=== PATIENT | female | born 1945 | race Caucasian/White ===

== ENCOUNTER 2018-10-25 15:26 | Emergency (ER) | payer OTHER ==
[2018-10-25 15:39] VITALS: BMI 30.4
--- NOTE | 2018-10-25 15:43 | PDOC ---
Rapid Medical Evaluation Chief Complaint: Injury Time Seen by Provider: 10/25/18 15:37 Medical Evaluation: Allergies Allergy/AdvReac Type Severity Reaction Status Date / Time No Known Allergies Allergy Verified 11/17/16 11:01 10/25/18 15:37 I have performed a brief in-person evaluation of this patient. The patient presents with a chief complaint of: fall hitting right knee. Patient is poor historian and thinks she hit her head during fall. Patient does not recall what happened before fall Pertinent physical exam findings: moderate tenderness with mild swelling to anterior right knee. moderate tenderness to right great toe. no evidence of head trauma I have ordered the following: x-ray of RT knee and great toe. head CT w/o contrast The patient will proceed to the ED for further evaluation. Discharge Disposition - Diagnosis Right anterior knee pain, Pain of right great toe Fall Qualifiers: Encounter type: initial encounter Qualified Code(s): W19.XXXA - Unspecified fall, initial encounter - Discharge Dispostion Condition at time of disposition: Stable - Referrals - Patient Instructions - Post Discharge Activity
--- NOTE | 2018-10-25 18:26 | PDOC ---
History of Present Illness - General Chief Complaint: Injury Stated Complaint: RT. SIDE PAIN/ FALL Time Seen by Provider: 10/25/18 15:37 History Source: Patient Exam Limitations: No Limitations - History of Present Illness Initial Comments: 72 yo F with a hx of Von Willebrand Disease, HTN, and HLD presents to the emergency department s/p fall that occurred last night. Per the patient, she was walking in her kitchen and slipped on water that was on the floor. She denies antecedent symptoms prior to the fall. She states that she was having right knee pain after hitting the wood floor. In addition, she had 1st right toe pain after the fall. She is unsure if she had head trauma, but denies LOC. With family at bedside, they state their mother is at baseline confused but lives independently. Denies the following: fever, chills, SOB, nausea, vomiting , chest pain, dysuria, hematuria, diarrhea, hematochezia, and melena. Allergies: NKDA Shx: Left knee replacement Social: Denies tobacco, alcohol, and substance Past History - Past Medical History Allergies/Adverse Reactions: Allergies Allergy/AdvReac Type Severity Reaction Status Date / Time No Known Allergies Allergy Verified 10/25/18 15:39 Home Medications: Ambulatory Orders Biotin 5,000 mcg PO DAILY 11/17/16 Cholecalciferol (Vitamin D3) [Vitamin D3] 2,000 unit PO DAILY 11/17/16 Docosahexanoic Acid/Epa [Fish Oil Concentrate Softgel] 1 each PO DAILY 11/17/16 Fexofenadine HCl [Robina Allergy] 180 mg PO DAILY 11/17/16 Multivitamins [Tab-A-Vit -] 1 tab PO DAILY 11/17/16 Rosuvastatin Calcium [Crestor] 10 mg PO HS 11/17/16 Valsartan [Diovan] 80 mg PO DAILY 11/17/16 metFORMIN HCL [Metformin HCl] 500 mg PO BID 11/17/16 Anemia: No (Hx of Von Willebrand Disease) Asthma: No Cancer: No Cardiac Disorders: No CVA: No COPD: No CHF: No Dementia: No Diabetes: No (???) GI Disorders: No Disorders: No HTN: Yes Hypercholesterolemia: Yes Liver Disease: No Seizures: No Thyroid Disease: No - Surgical History Abdominal Surgery: No Appendectomy: No Cardiac Surgery: No Cholecystectomy: No Lung Surgery: No Neurologic Surgery: No Orthopedic Surgery: Yes (Left knee arthroscopy x2) - Suicide/Smoking/Psychosocial Hx Smoking History: Former smoker Have you smoked in the past 12 months: No Information on smoking cessation initiated: No Hx Alcohol Use: No Drug/Substance Use Hx: No Substance Use Type: None Hx Substance Use Treatment: No Review of Systems - Review of Systems Able to Perform ROS?: Yes Is the patient limited Polish proficient: No Constitutional: No: Chills, Diaphoresis, Fever, Weakness HEENTM: No: Recent change in vision, Ear Pain, Nose Pain, Throat Pain, Mouth Pain Respiratory: No: Cough, Shortness of Breath, SOB with Exertion, Hemoptysis Cardiac (ROS): No: Chest Pain, Irregular Heart Rate, Lightheadedness, Palpitations, Syncope, Chest Tightness ABD/GI: No: Constipated, Diarrhea, Nausea, Rectal Bleeding, Vomiting, Tarry Stools : No: Burning, Dysuria, Hematuria, Incontinence Musculoskeletal: Yes: Joint Pain (left toe ). No: Back Pain, Neck Pain Integumentary: No: Bruising, Erythema, Rash Neurological: No: Headache, Numbness, Tingling, Tremors Psychiatric: No: Change in Appetite Endocrine: No: Unexplained Weight Gain Hematologic/Lymphatic: No: Anemia *Physical Exam - Vital Signs Last Vital Signs Temp Pulse Resp BP Pulse Ox 97.5 F L 97 H 18 144/82 97 10/25/18 15:30 10/25/18 15:30 10/25/18 15:30 10/25/18 15:30 10/25/18 15:30 - Physical Exam General Appearance: Yes: Nourished, Appropriately Dressed. No: Apparent Distress, Intoxicated HEENT: positive: EOMI, MADELAINE, Normal Voice, Symmetrical, Pharynx Normal, Hearing Grossly Normal. negative: Pale Conjunctivae, Scleral Icterus (R), Scleral Icterus (L), Muffled/Hoarse voice, Pharyngeal Erythema, Tonsillar Exudate, Tonsillar Erythema, Nasal Congestion, Rhinorrhea, Excessive drooling Neck: positive: Trachea midline, Supple. negative: Tender, Lymphadenopathy (R) , Lymphadenopathy (L), Tender lateral, Tender midline Respiratory/Chest: positive: Lungs Clear, Normal Breath Sounds. negative: Chest Tender, Respiratory Distress, Accessory Muscle Use, Crackles, Rales, Rhonchi, Stridor, Wheezing Cardiovascular: positive: Regular Rhythm, Regular Rate, S1, S2. negative: Systolic Murmur Gastrointestinal/Abdominal: positive: Normal Bowel Sounds, Flat, Soft. negative : Tender, Distended, Guarding, Rebound Lymphatic: negative: Adenopathy Musculoskeletal: positive: Normal Inspection. negative: CVA Tenderness, Vertebral Tenderness Extremity: positive: Normal Capillary Refill, Tender (base of the 1st metatarsal at the MTP left side with swelling. ). negative: Normal Inspection Integumentary: positive: Normal Color, Dry, Warm Neurologic: positive: apartment house manager II-XII NML intact, Alert, Normal Mood/Affect, Normal Response, Motor Strength 5/5. negative: EOM Palsy, Facial Droop, Numbness Medical Decision Making - Medical Decision Making 72 yo F with a hx of Von Willebrand Disease, HTN, and HLD presents to the emergency department s/p fall that occurred last night. Initial vitals: Initial Vital Signs Temp Pulse Resp BP Pulse Ox 97.5 F L 97 H 18 144/82 97 10/25/18 15:30 10/25/18 15:30 10/25/18 15:30 10/25/18 15:30 10/25/18 15:30 Work up: ddx: mechanical fall. rule out fracture and dislocation. will get head ct to rule out bleed toe xray: non displaced fracture at the base of the distal phalanx of the 1st digit left foot. will give lavelle tape and hard sole boot with follow up with ortho in 1 week. patient was able to ambulate on their own volition and understand the need for follow up. Dispo: Discharge *DC/Admit/Observation/Transfer Diagnosis at time of Disposition: Right anterior knee pain, Pain of right great toe Fall Qualifiers: Encounter type: initial encounter Qualified Code(s): W19.XXXA - Unspecified fall, initial encounter - Discharge Dispostion Disposition: HOME Condition at time of disposition: Stable Decision to Admit order: No - Referrals Referrals: Erick Rivas MD [Primary Care Provider] - Luis Barth DO [Staff Physician] - - Patient Instructions Printed Discharge Instructions: DI for Toe Fracture, How to Prevent Falls Additional Instructions: please use the boot when walking. please keep the big toe taped to the second toe. please see the orthopedic doctor within 1 week after discharge. please return if you have worsening symptoms or new concerning symptoms such as discoloration of the toe, loss of sensation and motor, and bleeding. thank you. - Post Discharge Activity
[2018-10-25 19:02] VITALS: BP 173/84; PULSE 88; TEMP 98.7
--- NOTE | 2018-10-25 19:05 | PDOC ---
Documentation entered by Amaris Avilez SCRIBE, acting as scribe for Trupti Kaplan MD. Trupti Kaplan MD: This documentation has been prepared by the Fatmata peace Adrianna, SCRIBE, under my direction and personally reviewed by me in its entirety. I confirm that the documentation accurately reflects all work, treatment, procedures, and medical decision making performed by me. Attending Attestation - Resident Resident Name: ReshmaRadu - [facility] HPI: The patient is a 72 year old female, with a significant PMH of Von Willebrand Disease, hypertension, and hypercholesterolemia, who presents to the emergency department today s/p fall last night. Patient complains of right knee pain and swelling secondary to hitting her knee from the fall. She endorses right great toe pain, swelling, and bruising. Patient believes she may have hit her head during the fall, but is unsure. Patient cannot recall anything that happened prior to the fall secondary to her confusion (confusion is present at baseline) . The patient denies chest pain, shortness of breath, headache and dizziness. Denies fever, chills, nausea, vomit, diarrhea and constipation. Denies dysuria, frequency, urgency and hematuria. Allergies: NKA Past surgical history: Left knee arthroscopy x2 Social history: Former smoker PCP: Dr. Erick Rivas 10/25/18 18:44 - Physicial Exam PE: GENERAL: Awake, alert, and fully oriented, in no acute distress HEAD: No signs of trauma EYES: PERRLA, EOMI, sclera anicteric, conjunctiva clear ENT: Auricles normal inspection, hearing grossly normal, nares patent, oropharynx clear without exudates. Moist mucosa NECK: Normal ROM, supple, no lymphadenopathy, JVD, or masses LUNGS: Breath sounds equal, clear to auscultation bilaterally. No wheezes, and no crackles HEART: Regular rate and rhythm, normal S1 and S2, no murmurs, rubs or gallops ABDOMEN: Soft, nontender, normoactive bowel sounds. No guarding, no rebound. No masses EXTREMITIES: +Great toe ecchymotic and mildly tender to palpation. Intact capillary refill. Intact sensation. Normal range of motion, no edema. No clubbing or cyanosis. No cords, no erythema. NEUROLOGICAL: Cranial nerves II through XII grossly intact. Normal speech, normal gait SKIN: Warm, Dry, normal turgor, no rashes or lesions noted. 10/25/18 18:44 - Medical Decision Making EXAM#: TYPE/EXAM: RESULT: [id number] RAD/KNEE 3 POS-RIGHT Pain in the right knee. Status post fall Impression: Unremarkable examination. Please refer to prior MRI of the right knee report dated Reported By: Santiago Santos MD 10/25/18 17:05 EXAM#: TYPE/EXAM: RESULT: [id number] RAD/TOE(S) RIGHT Impression: Nondisplaced fracture at the base of the first distal phalanx, laterally. There is also a questionable lucent line in distal shaft of the first proximal phalanx involving its articular surface. Cannot rule out a fracture. Orthopedics consult is suggested. Reported By: Santiago Santos MD 10/25/18 17:05 EXAM#: TYPE/EXAM: RESULT: [id number] CT/HEAD CT WITHOUT CONTRAST Status post fall. Hitting head. Rule out intracranial bleed. Impression: Moderate atrophy. No gross evidence of a focal intracranial lesion or hemorrhage is seen. Reported By: Santiago Santos MD 10/25/18 18:16 10/25/18 18:37 10/25/18 19:03 PResents with great toe pain after mechanical fall. + fx on xray. Will place hard shoe and lavelle tape and discharge home.
== END 2018-10-25 19:25 | disposition home or self-care (01) ==
LOC: JER 15:26
PROC: 2W3UXYZ Immobilization of Right Toe using Other Device (ICD-10-PCS; principal; 2018-10-25)
DX: S92.424A Nondisplaced fracture of distal phalanx of right great toe, initial encounter for closed fracture (principal); W19.XXXA Unspecified fall, initial encounter; Y93.89 Activity, other specified; Y92.038 Other place in apartment as the place of occurrence of the external cause; Y99.8 Other external cause status; I10 Essential (primary) hypertension; E78.00 Pure hypercholesterolemia, unspecified; Z86.2 Personal history of diseases of the blood and blood-forming organs and certain disorders involving the immune mechanism
CPT/HCPCS: 70450-TC; 73562-TC-RT-FY; 73660-TC-FY; 99283-25

== ENCOUNTER 2019-01-11 12:37 | Emergency (ER) | payer OTHER ==
[2019-01-11 12:42] VITALS: BMI 23.1
[2019-01-11] MEDS ORDERED: SODIUM CHLORIDE 0.9% 500 ML INFUS.BAG IV ONE (14:26)
[2019-01-11 14:45] LABS: BASO % 0.6 % (0-2.0); EOS % 0.9 % (0-4.5); HEMATOCRIT 37.3 % (32.4-45.2); LYMPH % 41.7 % (8-40); MCH 25.8 pg (25.7-33.7); MCHC 32.3 g/dl (32.0-36.0); MEAN PLT VOLUME 9.7 fl (7.5-11.1); MONO % 7.4 % (3.8-10.2); NEUT % 49.4 % (42.8-82.8); PLATELET COUNT 178 K/MM3 (134-434); RBC 4.66 M/mm3 (3.60-5.2); RDW 14.4 % (11.6-15.6); WHITE BLOOD COUNT 4.9 K/mm3 (4.0-10.0)
--- NOTE | 2019-01-11 14:57 | PDOC ---
Documentation entered by Tania Chance SCRIBE, acting as scribe for Trupti Kaplan MD. rTupti Kaplan MD: This documentation has been prepared by the Meron peace Mackenzie, SCRIBE, under my direction and personally reviewed by me in its entirety. I confirm that the documentation accurately reflects all work , treatment, procedures, and medical decision making performed by me. History of Present Illness - General Chief Complaint: Blood Sugar Problem Stated Complaint: HYPERGLYCEMIA Time Seen by Provider: 01/11/19 13:56 History Source: Patient, Family (Son) Exam Limitations: Clinical Condition (Confused) - History of Present Illness Initial Comments: The patient is a 73 year old female, with a significant PMH of NIDDM, HTN, and Von Willebrand disease who presents to the emergency department with a blood sugar level of 513 sent here after a routine visit with her PCP. Patient states she has been noncompliant with her medications for about 3 months. The patient denies chest pain, shortness of breath, headache and dizziness. Denies fever, chills, nausea, vomiting, diarrhea and constipation. Denies dysuria, frequency, urgency and hematuria. Allergies: NKA PCP: Dr. Jez Esquivel 01/11/19 14:37 Past History - Past Medical History Allergies/Adverse Reactions: Allergies Allergy/AdvReac Type Severity Reaction Status Date / Time No Known Allergies Allergy Verified 01/11/19 12:42 Home Medications: Ambulatory Orders Biotin 5,000 mcg PO DAILY 11/17/16 Cholecalciferol (Vitamin D3) [Vitamin D3] 2,000 unit PO DAILY 11/17/16 Docosahexanoic Acid/Epa [Fish Oil Concentrate Softgel] 1 each PO DAILY 11/17/16 Fexofenadine HCl [Robina Allergy] 180 mg PO DAILY 11/17/16 Multivitamins [Tab-A-Vit -] 1 tab PO DAILY 11/17/16 Rosuvastatin Calcium [Crestor] 10 mg PO HS 11/17/16 Valsartan [Diovan] 80 mg PO DAILY 11/17/16 metFORMIN HCL [Metformin HCl] 500 mg PO BID 11/17/16 Anemia: No (Hx of Von Willebrand Disease) Asthma: No Cancer: No Cardiac Disorders: No CVA: No COPD: No CHF: No Dementia: No Diabetes: No (???) GI Disorders: No Disorders: No HTN: Yes Hypercholesterolemia: Yes Liver Disease: No Seizures: No Thyroid Disease: No - Surgical History Abdominal Surgery: No Appendectomy: No Cardiac Surgery: No Cholecystectomy: No Lung Surgery: No Neurologic Surgery: No Orthopedic Surgery: Yes (Left knee arthroscopy x2) - Suicide/Smoking/Psychosocial Hx Smoking History: Never smoked Have you smoked in the past 12 months: No Hx Alcohol Use: No Drug/Substance Use Hx: No Substance Use Type: None Hx Substance Use Treatment: No Review of Systems - Review of Systems Able to Perform ROS?: Yes Comments:: GENERAL/CONSTITUTIONAL: No fever or chills. No weakness. HEAD, EYES, EARS, NOSE AND THROAT: No change in vision. No ear pain or discharge. No sore throat. CARDIOVASCULAR: No chest pain or shortness of breath. RESPIRATORY: No cough, wheezing, or hemoptysis. GASTROINTESTINAL: No nausea, vomiting, diarrhea or constipation. GENITOURINARY: No dysuria, frequency, or change in urination. MUSCULOSKELETAL: (+)Boot on left foot, from fall taken 5 weeks ago. No joint or muscle swelling or pain. No neck or back pain. SKIN: No rash NEUROLOGIC: No headache, vertigo, loss of consciousness, or change in strength/ sensation. ENDOCRINE: No increased thirst. No abnormal weight change. HEMATOLOGIC/LYMPHATIC: No anemia, easy bleeding, or history of blood clots. ALLERGIC/IMMUNOLOGIC: No hives or skin allergy. 01/11/19 14:39 *Physical Exam - Vital Signs Last Vital Signs Temp Pulse Resp BP Pulse Ox 98.2 F 99 H 16 166/81 97 01/11/19 12:39 01/11/19 12:39 01/11/19 12:39 01/11/19 12:39 01/11/19 12:39 - Physical Exam Comments: GENERAL: Awake, alert, and fully oriented, in no acute distress HEAD: No signs of trauma EYES: PERRLA, EOMI, sclera anicteric, conjunctiva clear ENT: Auricles normal inspection, hearing grossly normal, nares patent, oropharynx clear without exudates. Moist mucosa NECK: Normal ROM, supple, no lymphadenopathy, JVD, or masses LUNGS: Breath sounds equal, clear to auscultation bilaterally. No wheezes, and no crackles HEART: Regular rate and rhythm, normal S1 and S2, no murmurs, rubs or gallops ABDOMEN: Soft, nontender, normoactive bowel sounds. No guarding, no rebound. No masses EXTREMITIES: Normal range of motion, no edema. No clubbing or cyanosis. No cords, erythema, or tenderness NEUROLOGICAL: Cranial nerves II through XII grossly intact. Normal speech, normal gait SKIN: Warm, Dry, normal turgor, no rashes or lesions noted. 01/11/19 14:39 ED Treatment Course - LABORATORY CBC & Chemistry Diagram: 01/11/19 14:30 01/11/19 14:30 - ADDITIONAL ORDERS Additional order review: 01/11/19 14:30 RBC 4.66 MCV 80.0 MCHC 32.3 RDW 14.4 MPV 9.7 Neutrophils % 49.4 Lymphocytes % 41.7 H Monocytes % 7.4 Eosinophils % 0.9 Basophils % 0.6 - Medications Given in the ED: ED Medications Discontinued Medications Generic Name Dose Route Start Last Admin Trade Name Catarinoq PRN Reason Stop Dose Admin Sodium Chloride 1,000 ml 01/11/19 14:26 01/11/19 14:30 Normal Saline - IV 01/11/19 14:27 1,000 ml ONCE ONE Administration Medical Decision Making - Medical Decision Making 01/11/19 14:55 Pt presents to the ED after sent in for asymptomatic hyperglycemia. Reports non compliance with her diabetes medications and diet for several months. Will check labs and give IV hydration and reasses. will likely discharge home if no DKA or HHNK is present when glucose is controlled. *DC/Admit/Observation/Transfer Diagnosis at time of Disposition: Hyperglycemia - Discharge Dispostion Disposition: HOME Condition at time of disposition: Good Decision to Admit order: No - Referrals Referrals: Jez Esquivel MD [Primary Care Provider] - - Patient Instructions Printed Discharge Instructions: DI for Hyperglycemia -- Adult Additional Instructions: you came to the ED because your blood sugar was too high. You should return to the ED for new or worsening symptoms such as passing out, nausea and vomiting , chest pain or shortness of breath. Make sure that you call Dr. Connors on Monday for a follow up appointment. Dr. Connors will be able to help you get a home health aide or other help at home. You must take your diabetes medication every day--other thakkar, you will get sick. - Post Discharge Activity
[2019-01-11 14:59] LABS: ACETONE SERUM NEGATIVE (NEGATIVE)
[2019-01-11 15:14] LABS: ALBUMIN 3.3 g/dl (3.4-5.0); ALK PHOS 102 U/L (45-117); ANION GAP 7 MMOL/L (8-16); BILIRUBIN,TOTAL 0.2 mg/dL (0.2-1); BLOOD UREA NITROGEN 7.2 mg/dL (7-18); CALCIUM 9.8 mg/dL (8.5-10.1); CHLORIDE 96 mmol/L (98-107); CO2 28 mmol/L (21-32); CREATININE 0.9 mg/dL (0.55-1.3); POTASSIUM 4.1 mmol/L (3.5-5.1); SGOT/AST 16 U/L (15-37); SGPT/ALT 22 U/L (13-61); SODIUM 132 mmol/L (136-145); TOT PROT 9.5 g/dl (6.4-8.2)
[2019-01-11 15:17] LABS: GLUCOSE,RANDOM 361 mg/dL (74-106)
[2019-01-11] MEDS ORDERED: SODIUM CHLORIDE 1,000 ML IV STA (15:59)
[2019-01-11 17:56] VITALS: BP 183/99; PULSE 84; TEMP 97.5
--- NOTE | 2019-01-12 15:06 | PDOC ---
*Physical Exam - Vital Signs Last Vital Signs Temp Pulse Resp BP Pulse Ox 97.5 F L 84 20 183/99 H 97 01/11/19 17:55 01/11/19 17:55 01/11/19 17:55 01/11/19 17:55 01/11/19 17:55 ED Treatment Course - LABORATORY CBC & Chemistry Diagram: 01/11/19 14:30 01/11/19 14:30 - ADDITIONAL ORDERS Additional order review: 01/11/19 01/11/19 01/11/19 17:15 15:46 14:56 RBC MCV MCHC RDW MPV Neutrophils % Lymphocytes % Monocytes % Eosinophils % Basophils % POC Glucometer 248 310 334 01/11/19 14:30 RBC 4.66 MCV 80.0 MCHC 32.3 RDW 14.4 MPV 9.7 Neutrophils % 49.4 Lymphocytes % 41.7 H Monocytes % 7.4 Eosinophils % 0.9 Basophils % 0.6 POC Glucometer - Medications Given in the ED: ED Medications Discontinued Medications Generic Name Dose Route Start Last Admin Trade Name Phong PRN Reason Stop Dose Admin Sodium Chloride 1,000 mls @ 1,000 mls/hr 01/11/19 15:59 01/11/19 16:02 Normal Saline - IV 01/11/19 16:58 1,000 mls/hr ASDIR STA Administration Sodium Chloride 1,000 ml 01/11/19 14:26 01/11/19 14:30 Normal Saline - IV 01/11/19 14:27 1,000 ml ONCE ONE Administration Medical Decision Making - Medical Decision Making 01/12/19 15:05 Patient calls me and reports that she needed a refill of her metformin. I had wrote a prescription of metformin 500 mg BID. Pt states she will pick it up today. *DC/Admit/Observation/Transfer Diagnosis at time of Disposition: Hyperglycemia - Discharge Dispostion Disposition: HOME Condition at time of disposition: Good - Prescriptions Prescriptions: Metformin HCl [Glucophage] 500 mg PO BID #30 tablet metFORMIN HCL [Metformin HCl] 500 mg PO BID #60 tablet Valsartan [Diovan] 80 mg PO DAILY #14 tablet - Referrals Referrals: Jez Esquivel MD [Primary Care Provider] - - Patient Instructions Printed Discharge Instructions: DI for Hyperglycemia -- Adult Additional Instructions: you came to the ED because your blood sugar was too high. You should return to the ED for new or worsening symptoms such as passing out, nausea and vomiting , chest pain or shortness of breath. Make sure that you call Dr. Connors on Monday for a follow up appointment. Dr. Connors will be able to help you get a home health aide or other help at home. You must take your diabetes medication every day--other thakkar, you will get sick. - Post Discharge Activity
== END 2019-01-11 18:06 | disposition home or self-care (01) ==
LOC: JER 12:37
PROC: 3E0337Z Introduction of Electrolytic and Water Balance Substance into Peripheral Vein, Percutaneous Approach (ICD-10-PCS; principal; 2019-01-11)
DX: E11.65 Type 2 diabetes mellitus with hyperglycemia (principal); I10 Essential (primary) hypertension; E78.00 Pure hypercholesterolemia, unspecified
CPT/HCPCS: 36415; 80053; 82009; 82962; 85025; 99283-25; J7030

== ENCOUNTER 2019-05-09 01:10 | Inpatient (IN) | payer OTHER ==
[2019-05-09] MEDS ORDERED: ACETAMINOPHEN 325 MG TABLET (FP) PO ONE (01:45)
[2019-05-09] MEDS ORDERED: LIDOCAINE 5% TOPICAL PATCH TP ONE (01:45)
--- NOTE | 2019-05-09 01:47 | PDOC ---
History of Present Illness - General Stated Complaint: BACK PAIN Time Seen by Provider: 05/09/19 01:20 History Source: Patient Exam Limitations: No Limitations - History of Present Illness Initial Comments: Pt is a 73 yo F, with PMH of von Willebrand disease, NIDDM (known to be non- compliant with metformin, frequent hyperglycemia), HTN, and HLD, who is presenting via EMS from home after "my leg gave out today". Pt states she was walking in the home, when her "right leg gave out, but I caught myself on the furniture. I was not able to get up off the floor". EMS states they knocked the door down, to reach the pt, and had to go down 1 flight of stairs to the pts entryway. Pt had been on the floor throughout the day, and needed assistance to be transferred to the ambulance. Pt has had multiple falls that are similar over the past few months, with her lower back cramping and then R leg giving way. Pt denies any urinary incontinence, fever, or weakness except for the moment prior to the fall. Pt denies any fevers/chills, headache, vision changes , syncope, chest pain, palpitations, SOB, nausea/vomiting, abdominal pain, urinary symptoms, diarrhea/constipation, or leg swelling. Allergies: NKDA PCP: Dr. Jez Esquivel Social: Pt denies any cigarette, alcohol, or drug use. Pt denies any recent travel or sick contacts. Surgical: no relevant history. Family: no relevant history. 05/09/19 03:54 05/09/19 04:13 Past History - Travel Traveled outside of the country in the last 30 days: No Close contact w/someone who was outside of country & ill: No - Past Medical History Allergies/Adverse Reactions: Allergies Allergy/AdvReac Type Severity Reaction Status Date / Time No Known Allergies Allergy Verified 01/11/19 12:42 Home Medications: Ambulatory Orders Biotin 5,000 mcg PO DAILY 11/17/16 Cholecalciferol (Vitamin D3) [Vitamin D3] 2,000 unit PO DAILY 11/17/16 Docosahexanoic Acid/Epa [Fish Oil Concentrate Softgel] 1 each PO DAILY 11/17/16 Fexofenadine HCl [Robina Allergy] 180 mg PO DAILY 11/17/16 Multivitamins [Tab-A-Vit -] 1 tab PO DAILY 11/17/16 Rosuvastatin Calcium [Crestor] 10 mg PO HS 11/17/16 metFORMIN HCL [Metformin HCl] 500 mg PO BID 11/17/16 Metformin HCl [Glucophage] 500 mg PO BID #30 tablet 01/11/19 Valsartan [Diovan] 80 mg PO DAILY #14 tablet 01/11/19 metFORMIN HCL [Metformin HCl] 500 mg PO BID #60 tablet 01/12/19 Anemia: No (Hx of Von Willebrand Disease) Asthma: No Cancer: No Cardiac Disorders: No CVA: No COPD: No CHF: No Dementia: No Diabetes: Yes (???) GI Disorders: No Disorders: No HTN: Yes Hypercholesterolemia: Yes Liver Disease: No Seizures: No Thyroid Disease: No - Surgical History Abdominal Surgery: No Appendectomy: No Cardiac Surgery: No Cholecystectomy: No Lung Surgery: No Neurologic Surgery: No Orthopedic Surgery: Yes (Left knee arthroscopy x2) - Immunization History Immunization Up to Date: Yes - Psycho Social/Smoking Cessation Hx Smoking History: Never smoked Have you smoked in the past 12 months: No Information on smoking cessation initiated: No Hx Alcohol Use: No Drug/Substance Use Hx: No Substance Use Type: None Hx Substance Use Treatment: No Trauma Specific PMHX - Complaint Specific PMHX Arthritis: Yes (L knee arthroscopy) Back Injury: No Neck Injury: No Hx Sacro Iliac Joint Dysfunction: No Review of Systems - Review of Systems Able to Perform ROS?: Yes Is the patient limited [place]an proficient: No Constitutional: Yes: Weakness, Weight Stable. No: Chills, Diaphoresis, Fever, Loss of Appetite, Malaise HEENTM: No: Recent change in vision, Nose Congestion, Throat Pain, Throat Swelling, Difficulty Swallowing Respiratory: No: Cough, Orthopnea, Shortness of Breath Cardiac (ROS): No: Chest Pain, Edema, Irregular Heart Rate, Lightheadedness, Palpitations, Syncope, Chest Tightness ABD/GI: No: Constipated, Diarrhea, Nausea, Poor Appetite, Poor Fluid Intake, Vomiting, Abdominal cramping : No: Burning, Dysuria, Frequency, Hematuria, Incontinence, Urgency Musculoskeletal: Yes: See HPI, Back Pain, Muscle Weakness. No: Joint Pain, Joint Swelling, Neck Pain Integumentary: No: Bruising, Rash Neurological: Yes: Unsteady Gait. No: Headache, Numbness, Paresthesia, Pre- Existing Deficit, Seizure, Weakness ("legs giving out", no focal weakness), Ataxia, Dizziness Psychiatric: No: Sleep Pattern Change, Change in Appetite Endocrine: No: Increased Urine, Change in Weight Hematologic/Lymphatic: No: Anemia, Blood Clots, Easy Bleeding, Easy Bruising All Other Systems: Reviewed and Negative *Physical Exam - Vital Signs Last Vital Signs Temp Pulse Resp BP Pulse Ox 98.3 F 96 H 18 164/80 98 05/09/19 01:38 05/09/19 01:38 05/09/19 01:38 05/09/19 01:38 05/09/19 01:38 - Physical Exam Comments: Vitals stable, pt afebrile. Pt in NAD while lying on the stretcher; discomfort induced with sitting up. Normal body habitus. Pt unable to bear weight due to pain and "feeling unstable on legs". Pt alert and oriented x3. associate account director generally intact, muscular strength and sensation intact. Reflexes intact b/ l LE. No midline spinal tenderness, step-offs, or crepitus. +Paraspinal lower/lumbar TTP. Lower back pain induced with straight-leg raise. Head normocephalic, atraumatic. Eyes PERRLA, EOMI. Oropharynx without erythema or exudates, no LAD b/l. No nasal congestion. Hearing intact. Clear heart sounds, S1/S2, no JVD, b/l pedal edema, or heart murmur. Clear lung sounds, no respiratory distress, wheezes, crackles, or accessory muscle use. No abdominal or CVA tenderness to palpation, no rebound, no guarding. Abdomen soft, non-distended, and with normoactive bowel sounds. Skin without jaundice or rash. 05/09/19 05:15 ED Treatment Course - LABORATORY CBC & Chemistry Diagram: 05/09/19 02:05 05/09/19 02:05 - RADIOLOGY Radiology Studies Ordered: Category Date Time Status HEAD CT WITHOUT CONTRAST [CT] Stat CT Scan 05/09/19 01:43 Ordered Medical Decision Making - Medical Decision Making Pt was seen at bedside, also will be seen by attending Dr. Molina. Pt presenting with complaints of lower back pain and multiple falls with "legs giving out" over the last few months. Concerning for malignancy vs fractures vs electrolyte imbalances. Pt has no signs of cauda equina, spinal abscess, or compression at this time (no fever, incontinence of urine or stool). Provided tylenol and lidocaine patch for improvement of back discomfort. Will continue to reassess pt and monitor for symptomatic improvement. ECG: NSR, intervals WNL. No TWIs or significant ST segment changes. No significant changes from prior ECG. CBC: stable anemia CMP: WNL except BGM at 400s -- providing pts dose of metformin Trop <.02 CT head and C-spine with no acute pathology. CT abd/pelvis: Diffusely sclerotic appearance of the bones is nonspecific but cannot exclude diffuse marrow infiltrative process including metastasis. Alternative process including renal osteodystrophy could be considered. CT lumbar spine: There is cortical irregularity of the superior endplate of L3 concerning for age-indeterminate fracture. Recommend correlation with physical exam findings. There is approximately 25% height loss of the superior endplate. No significant retropulsion. No spinal canal stenosis. Heterogeneous appearance of the bones; cannot exclude diffuse marrow infiltrative process. Partial visualization of infrarenal abdominal aortic aneurysm which measures at least 3.9 cm in diameter; recommend further evaluation with nonemergent CT of the abdomen and pelvis. 8 mm left adrenal nodule. Mild right hydronephrosis. Stable fracture, no retropulsion or compression. Pt has no incontinence or b/l leg weakness. Reflexes intact. Not concerning for cauda equina or spinal abscess at this time. More concerning for chronic dystrophy vs malignancy. Paged Dr. Recio for admission. 05/09/19 04:[address] Recio's service. Pt requires inpatient treatment for PT, evaluation of spinal fracture vs metastasis/osteodystrophy. Pt lives in a home with stairs, and would be unable to ambulate safely in her place of living. 05/09/19 04:42 05/09/19 04:46 05/09/19 05:38 Discharge - Discharge Information Problems reviewed: Yes Clinical Impression/Diagnosis: Assistance needed for ambulation and movement Fall Qualifiers: Encounter type: initial encounter Qualified Code(s): W19.XXXA - Unspecified fall, initial encounter L3 vertebral fracture Qualifiers: Encounter type: initial encounter Fracture type: closed Fracture morphology: other fracture Qualified Code(s): S32.038A - Other fracture of third lumbar vertebra, initial encounter for closed fracture Condition: Stable - Admission Yes - Follow up/Referral Referrals: Jez Esquivel MD [Primary Care Provider] - - Patient Discharge Instructions - Post Discharge Activity
[2019-05-09] MEDS ORDERED: LIDOCAINE 5% TOPICAL PATCH ONE (01:50)
[2019-05-09] MEDS ORDERED: ACETAMINOPHEN 325 MG TABLET (FP) ONE (01:50)
--- NOTE | 2019-05-09 01:55 | PDOC ---
Attending Attestation - Resident Resident Name: Odalis Barreraana - ED Attending Attestation I have performed the following: I have examined & evaluated the patient, The case was reviewed & discussed with the resident, I agree w/resident's findings & plan - HPI HPI: 05/09/19 06:29 see resident hpi - Physicial Exam PE: 05/09/19 06:29 agree with resident exam - Medical Decision Making 05/09/19 06:29 73-year-old female status post multiple falls with leg weakness CT scan shows an L3 fracture with no retropulsed fragments Plan for admission to medical service for further evaluation, PT evaluation
[2019-05-09 02:19] LABS: BASO % 0.3 % (0-2.0); EOS % 0.5 % (0-4.5); HEMATOCRIT 31.4 % (32.4-45.2); HEMOGLOBIN 10.3 GM/dL (10.7-15.3); LYMPH % 16.9 % (8-40); MCH 27.1 pg (25.7-33.7); MCHC 32.9 g/dl (32.0-36.0); MEAN CELL VOLUME 82.4 fl (80-96); MEAN PLT VOLUME 10.2 fl (7.5-11.1); MONO % 7.1 % (3.8-10.2); NEUT % 75.2 % (42.8-82.8); PLATELET COUNT 217 K/MM3 (134-434); RBC 3.82 M/mm3 (3.60-5.2); RDW 15.6 % (11.6-15.6); WHITE BLOOD COUNT 5.8 K/mm3 (4.0-10.0)
[2019-05-09] MEDS ORDERED: metFORMIN HCL 500 MG TABLET (FP) PO ONE (02:21)
[2019-05-09 02:33] LABS: INR 1.03 (0.83-1.09); PROTHROMBIN TIME (PATIENT) 12.1 SEC (9.7-13.0)
[2019-05-09 02:43] LABS: ALBUMIN 3.2 g/dl (3.4-5.0); ALK PHOS 100 U/L (45-117); ANION GAP 5 MMOL/L (8-16); BILIRUBIN,TOTAL 0.2 mg/dL (0.2-1); BLOOD UREA NITROGEN 11.8 mg/dL (7-18); CALCIUM 10.1 mg/dL (8.5-10.1); CHLORIDE 101 mmol/L (98-107); CO2 27 mmol/L (21-32); CREATININE 0.9 mg/dL (0.55-1.3); POTASSIUM 4.5 mmol/L (3.5-5.1); SGOT/AST 14 U/L (15-37); SGPT/ALT 23 U/L (13-61); SODIUM 133 mmol/L (136-145); TOT PROT 9.9 g/dl (6.4-8.2)
[2019-05-09 02:44] LABS: GLUCOSE,RANDOM 421 mg/dL (74-106)
[2019-05-09] MEDS ORDERED: metFORMIN HCL 500 MG TABLET (FP) ONE (03:03)
--- NOTE | 2019-05-09 12:37 | EKG ---
Test Reason : Blood Pressure : / mmHG Vent. Rate : 103 BPM Atrial Rate : 103 BPM P-R Int : 160 ms QRS Dur : 068 ms QT Int : 344 ms P-R-T Axes : 061 005 049 degrees QTc Int : 450 ms SINUS TACHYCARDIA OTHERWISE NORMAL ECG NO PREVIOUS ECGS AVAILABLE Confirmed by ANNE CAMPA MD ([id number]) on 05/09/2019 12:37:33 PM Referred By: Confirmed By:ANNE CAMPA MD
[2019-05-09] MEDS ORDERED: ONDANSETRON 4 MG/2 ML VIAL IVPUSH PRN (17:35)
[2019-05-09] MEDS: metFORMIN HCL 500 MG TABLET (FP) PO SCH (17:47)
[2019-05-09] MEDS: INSULIN SLIDING SCALE (NOVOLOG) 1 VIAL SQ SCH ×2 (17:48→22:54)
[2019-05-09] MEDS ORDERED: KETOROLAC TROMETHAMINE 30 MG/1 ML VIAL IM SCH (18:00)
[2019-05-09 18:47] VITALS: BMI 27.9
--- NOTE | 2019-05-09 21:01 | HP ---
Admitting History and Physical - Admission History of Present Illness: Pt is a 73 y/o female with PMH of von Willebrand disease, NIDDM (known to be non -compliant with metformin, frequent hyperglycemia), HTN, and HLD, who is presenting via EMS from home after "my leg gave out today". Pt is a poor historian. Pt states she was walking in the home, when her "right leg gave out, but I caught myself on the furniture. I was not able to get up off the floor". EMS states they knocked the door down, to reach the pt, and had to go down 1 flight of stairs to the pts entryway. Pt had been on the floor throughout the day, and needed assistance to be transferred to the ambulance. Pt has had multiple falls that are similar over the past few months, with her lower back cramping and then R leg giving way. Pt also complains of vertigo wc she states began in hospital w/ multiple episodes of vomiting. Pt had ct scan head in ER wc did not show any acute pathology. - Past Medical History Cardiovascular: Yes: HTN, Hyperlipdemia ...: No Heme/Onc: Yes: Other (Von Willebrands dz) Endocrine: Yes: Diabetes Mellitus - Smoking History Smoking history: Never smoked Have you smoked in the past 12 months: No - Alcohol/Substance Use Hx Alcohol Use: No Home Medications - Allergies Allergies/Adverse Reactions: Allergies Allergy/AdvReac Type Severity Reaction Status Date / Time No Known Allergies Allergy Verified 01/11/19 12:42 - Home Medications Home Medications: Ambulatory Orders Biotin 5,000 mcg PO DAILY 11/17/16 Cholecalciferol (Vitamin D3) [Vitamin D3] 2,000 unit PO DAILY 11/17/16 Docosahexanoic Acid/Epa [Fish Oil Concentrate Softgel] 1 each PO DAILY 11/17/16 Fexofenadine HCl [Robina Allergy] 180 mg PO DAILY 11/17/16 Multivitamins [Tab-A-Vit -] 1 tab PO DAILY 11/17/16 Rosuvastatin Calcium [Crestor] 10 mg PO HS 11/17/16 Metformin HCl [Glucophage] 500 mg PO BID #30 tablet 01/11/19 Valsartan [Diovan] 80 mg PO DAILY #14 tablet 01/11/19 Family Medical History Family History: Unremarkable Review of Systems - Review of Systems Constitutional: reports: Weakness Eyes: reports: No Symptoms HENT: reports: No Symptoms Neck: reports: No Symptoms Cardiovascular: reports: No Symptoms Respiratory: reports: No Symptoms Gastrointestinal: reports: Nausea, Vomiting Genitourinary: reports: No Symptoms Physical Examination Vital Signs: Vital Signs Temperature 99.5 F 05/09/19 15:50 Pulse Rate 96 H 05/09/19 15:50 Respiratory Rate 20 05/09/19 15:50 Blood Pressure 128/82 05/09/19 15:50 O2 Sat by Pulse Oximetry (%) 94 L 05/09/19 11:30 Constitutional: Yes: No Distress Eyes: Yes: WNL HENT: Yes: WNL Neck: Yes: WNL, Supple Cardiovascular: Yes: WNL, Regular Rate and Rhythm Respiratory: Yes: WNL, Regular, CTA Bilaterally Gastrointestinal: Yes: WNL, Normal Bowel Sounds, Soft Musculoskeletal: Yes: WNL Extremities: Yes: WNL Edema: No Neurological: Yes: WNL, Alert, Oriented ...Motor Strength: WNL Labs: CBC, BMP 05/09/19 02:05 05/09/19 02:05 Problem List - Problems (1) Vertebral fracture Assessment/Plan: Ortho consult Compression of L3 Tramadol prn for pain Code(s): CIN4177 - (2) Weakness Assessment/Plan: Multifactorial Neuro consult PT eval Code(s): R53.1 - WEAKNESS (3) Falls Code(s): W19.XXXA - UNSPECIFIED FALL, INITIAL ENCOUNTER (4) Vertigo Assessment/Plan: Meclizine prn Neuro consult Check echo/carotid doppler Code(s): R42 - DIZZINESS AND GIDDINESS (5) HTN (hypertension) Assessment/Plan: BP stable Cont diovan Code(s): I10 - ESSENTIAL (PRIMARY) HYPERTENSION (6) HLD (hyperlipidemia) Assessment/Plan: Cont crestor Code(s): E78.5 - HYPERLIPIDEMIA, UNSPECIFIED (7) Diabetes Assessment/Plan: Cont metformin Cont sliding scale w/ coverage Code(s): E11.9 - TYPE 2 DIABETES MELLITUS WITHOUT COMPLICATIONS
[2019-05-09] MEDS ORDERED: MECLIZINE HCL 12.5 MG TABLET PO PRN (21:21)
[2019-05-09] MEDS ORDERED: LIDOCAINE PATCH REMOVAL MC SCH (22:00)
[2019-05-09] MEDS: ROSUVASTATIN CA 10 MG TABLET (FP) PO SCH (22:54)
[2019-05-09] MEDS: HEPARIN NA (PORCINE) 5,000 UNITS/ML 1ML VIAL SQ SCH (22:54)
[2019-05-10] MEDS: INSULIN SLIDING SCALE (NOVOLOG) 1 VIAL SQ SCH ×4 (06:23→22:10)
[2019-05-10 08:58] LABS: BASO % 0.4 % (0-2.0); EOS % 0.5 % (0-4.5); HEMATOCRIT 30.6 % (32.4-45.2); HEMOGLOBIN 10.1 GM/dL (10.7-15.3); LYMPH % 29.5 % (8-40); MCH 26.8 pg (25.7-33.7); MCHC 32.9 g/dl (32.0-36.0); MEAN CELL VOLUME 81.5 fl (80-96); MEAN PLT VOLUME 10.7 fl (7.5-11.1); MONO % 10.7 % (3.8-10.2); NEUT % 58.9 % (42.8-82.8); PLATELET COUNT 217 K/MM3 (134-434); RBC 3.75 M/mm3 (3.60-5.2); RDW 15.7 % (11.6-15.6)
[2019-05-10] MEDS: metFORMIN HCL 500 MG TABLET (FP) PO SCH ×2 (09:24→17:51)
[2019-05-10] MEDS: MULTIVITAMINS (DAILY MVI) TABLET (FP) PO SCH (09:24)
[2019-05-10] MEDS: VALSARTAN 80 MG TABLET (UD) PO SCH (09:24)
[2019-05-10] MEDS: HEPARIN NA (PORCINE) 5,000 UNITS/ML 1ML VIAL SQ SCH ×2 (09:24→22:10)
[2019-05-10 09:38] LABS: BILIRUBIN,TOTAL 0.3 mg/dL (0.2-1); CALCIUM 10.5 mg/dL (8.5-10.1); CREATININE 1.1 mg/dL (0.55-1.3); POTASSIUM 4.6 mmol/L (3.5-5.1); TOT PROT 9.4 g/dl (6.4-8.2)
[2019-05-10 09:39] LABS: WHITE BLOOD COUNT 5.6 K/mm3 (4.0-10.0)
--- NOTE | 2019-05-10 10:39 | CONSULT ---
Consult - text type - Consultation Consultation Note: NEUROLOGY CONSULT GREATLY APPRECIATED: This 73 yo RH single woman lives alone. Ambulates with cane outside since fall 4 years ago. Has two flights of stairs in the house. PMHX: Von Willebrand's Disease, HTN, HLD, DM x "many years" On: Vit D, Fish oil, rosuvastatin, metformin, valsartan. Progressive gait decline due to non-radiating "sharp pains" in middle of back. Ambulation now limited to few feet. Improves with rest and sitting. Admitted after "legs gave way" and lowered to the floor. Denies hitting head or LOC. Has had previous episodes similar to this , but able to "get up." Granddaughter was at home and called EMS to transfer her to hospital. Head CT (reviewed): Moderate, diffuse, atrophy with ex vacuo ventricular dilation. Calcification of intracranial vessels. CT of C spine: Mild DJD C5/C6,C6/C7 without cord involvement. MRI of LS spine (C-): Normal alignment. Discs well-hydrated. Mod. spondylytic changes and posterior facet hypertrophy. No central canal stenosis. B/L foraminal stenosis at L3/L4 without impingement. Mild L3 vertebral collapse (age indeterminate) WBC= 5.8K MCV= 81.5; TSH= 0.58 CK= 37 IU/L KVNG: BP 120-180/70-90 supine. Cor reg. No bruit. Neck supple. Neg SLR. Neg Brendan's. Neg Shama's. No evidence of trauma. NEURO: Awake, alert, responsive. Mild OMS present. CNII-CNXII: Normal. Motor: No drift or tremor. Strength normal. Reflexes normal in arms, areflexic in legs. Toes downgoing. Coordination: No FTN dystaxia. Sensation: Preserved vibration in toes. Romberg +/- Gait: Normal, can walk on heels and toes without difficulty. Impression: Mild OMS LS spondylosis without significant stenosis to explain claudication. Mild DM polyneuropathy may be contributing. R/O vascular claudication. Suggest: Orthostatic BP's Check ESR, CRP, B12, RPR, Fe++, TIBC, Ferritin Mobilize pt OOB to chair for meals PT eval for gait safety with walker director of services eval for home safety check Thank you very much, Tobias Scanlon MD
--- NOTE | 2019-05-10 12:05 | ECHO ---
Name: CIELO LISA Exam:Adult Echocardiogram Study Date: 05/10/2019 11:20 AM Age: 73 yrs Height: 64 in Weight: 163 lb BSA: 1.8 m2 MMode/2D Measurements & Calculations IVSd: 0.88 cm Ao root diam: 2.8 cm LVIDd: 4.1 cm LA dimension: 3.2 cm LVIDs: 2.5 cm LVPWd: 1.0 cm LVPWs: 1.2 cm EDV(Teich): 75.3 ml ESV(Teich): 22.0 ml LVOT diam: 1.8 cm RV S Sid: 12.0 cm/sec Doppler Measurements & Calculations MV E max sid: 68.9 cm/sec Ao V2 max: 141.8 cm/sec MV A max sid: 74.7 cm/sec Ao max P.1 mmHg MV E/A: 0.92 MV dec time: 0.09 sec SADIE(V,D): 1.9 cm2 LV V1 max P.3 mmHg PA V2 max: 101.1 cm/sec LV V1 max: 103.8 cm/sec PA max P.1 mmHg Med Peak E' Sid: 6.7 cm/sec Med E/e': 10.2 Lat Peak E' Sid: 12.1 cm/sec Lat E/e': 5.7 Left Ventricle Left ventricular systolic function is normal. Ejection Fraction = 50-55%. The transmitral spectral Do ppler flow pattern is normal for age. Right Ventricle The right ventricle is normal in size and function. Atria The left atrium is mildly dilated. Right atrial size is normal. Mitral Valve The mitral valve is grossly normal. There is no mitral valve stenosis. There is trace to mild mitral regurgitation. Tricuspid Valve The tricuspid valve is normal in structure and function. There is mild tricuspid regurgitation. Right ventricular systolic pressure is normal. Aortic Valve There is moderate aortic sclerosis.;. No hemodynamically significant valvular aortic stenosis. No aor tic regurgitation is present. Pulmonic Valve The pulmonic valve is not well seen, but is grossly normal. There is no pulmonic valvular stenosis. Great Vessels The aortic root is normal size. Pericardium/Pleura Small pericardial effusion (<1cm). There are no echocardiographic indications of cardiac tamponade. Interpretation Summary Left ventricular systolic function is normal. Ejection Fraction = 50-55%. The right ventricle is normal in size and function. The left atrium is mildly dilated. There is trace to mild mitral regurgitation. There is mild tricuspid regurgitation. Right ventricular systolic pressure is normal. There is moderate aortic sclerosis.; Small pericardial effusion (<1cm) There are no echocardiographic indications of cardiac tamponade. MD Rothman *Silva 05/10/2019 12:04 PM
--- NOTE | 2019-05-10 12:08 | CON.CARD ---
Consult Consult Specialty:: Cardiology - History of Present Illness History of Present Illness: Pt is a 73 y/o female with PMH of von Willebrand disease, NIDDM (known to be non -compliant with metformin, frequent hyperglycemia), HTN, and HLD, who is presenting via EMS from home after "my leg gave out today". Pt is a poor historian. Pt states she was walking in the home, when her "right leg gave out, but I caught myself on the furniture. I was not able to get up off the floor". EMS states they knocked the door down, to reach the pt, and had to go down 1 flight of stairs to the pts entryway. Pt had been on the floor throughout the day, and needed assistance to be transferred to the ambulance. Pt has had multiple falls that are similar over the past few months, with her lower back cramping and then R leg giving way. Pt also complains of vertigo wc she states began in hospital w/ multiple episodes of vomiting. Pt had ct scan head in ER wc did not show any acute pathology. - History Source History Provided By: Patient, Medical Record - Past Medical History Cardio/Vascular: Yes: HTN, Hyperlipdemia ...: No Endocrine: Yes: Diabetes Mellitus - Alcohol/Substance Use Hx Alcohol Use: No - Smoking History Smoking history: Never smoked Have you smoked in the past 12 months: No Home Medications - Allergies Allergies/Adverse Reactions: Allergies Allergy/AdvReac Type Severity Reaction Status Date / Time No Known Allergies Allergy Verified 01/11/19 12:42 - Home Medications Home Medications: Ambulatory Orders Biotin 5,000 mcg PO DAILY 11/17/16 Cholecalciferol (Vitamin D3) [Vitamin D3] 2,000 unit PO DAILY 11/17/16 Docosahexanoic Acid/Epa [Fish Oil Concentrate Softgel] 1 each PO DAILY 11/17/16 Fexofenadine HCl [Robina Allergy] 180 mg PO DAILY 11/17/16 Multivitamins [Tab-A-Vit -] 1 tab PO DAILY 11/17/16 Rosuvastatin Calcium [Crestor] 10 mg PO HS 11/17/16 Metformin HCl [Glucophage] 500 mg PO BID #30 tablet 01/11/19 Valsartan [Diovan] 80 mg PO DAILY #14 tablet 01/11/19 Review of Systems - Review of Systems Constitutional: reports: No Symptoms Eyes: reports: No Symptoms HENT: reports: No Symptoms Neck: reports: No Symptoms Cardiovascular: reports: No Symptoms Gastrointestinal: reports: No Symptoms Genitourinary: reports: No Symptoms Breasts: reports: No Symptoms Reported Musculoskeletal: reports: No Symptoms Integumentary: reports: No Symptoms Neurological: reports: Other (back pain) Endocrine: reports: No Symptoms Hematology/Lymphatic: reports: No Symptoms Psychiatric: reports: No Symptoms Vital Signs: Vital Signs Temperature 98.5 F 05/10/19 06:18 Pulse Rate 90 05/10/19 06:18 Respiratory Rate 20 05/10/19 06:18 Blood Pressure 121/69 05/10/19 06:18 O2 Sat by Pulse Oximetry (%) 99 05/09/19 21:00 Constitutional: Yes: Well Nourished, No Distress, Calm Eyes: Yes: WNL, Conjunctiva Clear, EOM Intact HENT: Yes: WNL, Atraumatic, Normocephalic Neck: Yes: WNL, Supple, Trachea Midline Respiratory: Yes: WNL, Regular, CTA Bilaterally Gastrointestinal: Yes: WNL, Normal Bowel Sounds Renal/: Yes: WNL Cardiovascular: Yes: WNL, Regular Rate and Rhythm Musculoskeletal: Yes: WNL Extremities: Yes: WNL Integumentary: Yes: WNL ...Motor Strength: WNL Psychiatric: Yes: WNL, Alert, Oriented - Other Data Labs, Other Data: CBC, BMP 05/10/19 07:52 05/10/19 06:52 INR, PTT INR 1.03 (0.83-1.09) 05/09/19 02:05 Troponin, BNP 05/10/19 00:15 Troponin I 0.04 Troponin, BNP 05/10/19 00:15 Troponin I 0.04 Imaging - Results Chest X-ray: Image Reviewed (no i/e) EKG: Image Reviewed (s tachy o/w wnl) Problem List - Problems (1) Assistance needed for ambulation and movement Code(s): [id number] - (2) Diabetes Code(s): E11.9 - TYPE 2 DIABETES MELLITUS WITHOUT COMPLICATIONS (3) Fall Code(s): W19.XXXA - UNSPECIFIED FALL, INITIAL ENCOUNTER Qualifiers: Encounter type: initial encounter Qualified Code(s): W19.XXXA - Unspecified fall, initial encounter (4) Falls Code(s): W19.XXXA - UNSPECIFIED FALL, INITIAL ENCOUNTER (5) HLD (hyperlipidemia) Code(s): E78.5 - HYPERLIPIDEMIA, UNSPECIFIED (6) HTN (hypertension) Code(s): I10 - ESSENTIAL (PRIMARY) HYPERTENSION (7) L3 vertebral fracture Code(s): S32.039A - UNSP FRACTURE OF THIRD LUMBAR VERTEBRA, INIT FOR CLOS FX Qualifiers: Encounter type: initial encounter Fracture type: closed Fracture morphology: other fracture Qualified Code(s): S32.038A - Other fracture of third lumbar vertebra, initial encounter for closed fracture (8) Peripheral neuropathy Code(s): G62.9 - POLYNEUROPATHY, UNSPECIFIED (9) Vertebral fracture Code(s): AIV7298 - (10) Vertigo Code(s): R42 - DIZZINESS AND GIDDINESS (11) Weakness Code(s): R53.1 - WEAKNESS (12) Hyperglycemia Code(s): R73.9 - HYPERGLYCEMIA, UNSPECIFIED (13) Pain of right great toe Code(s): M79.674 - PAIN IN RIGHT TOE(S) (14) Right anterior knee pain Code(s): M25.561 - PAIN IN RIGHT KNEE Assessment/Plan von Willebrand disease, NIDDM (known to be non-compliant with metformin, frequent hyperglycemia), HTN, and HLD presenting with Compression of L3 fx s tach on ekg, echo nl ef Plan cardiac thakkar stable pain control dvt plx cardiac thakkar stable
--- NOTE | 2019-05-10 13:02 | EKG ---
Test Reason : Blood Pressure : / mmHG Vent. Rate : 102 BPM Atrial Rate : 102 BPM P-R Int : 146 ms QRS Dur : 078 ms QT Int : 340 ms P-R-T Axes : 058 -01 040 degrees QTc Int : 443 ms SINUS TACHYCARDIA WHEN COMPARED WITH ECG OF 09-MAY-2019 04:16, NO SIGNIFICANT CHANGE WAS FOUND Confirmed by HAKEEM SILVA MD ([id number]) on 05/10/2019 1:01:48 PM Referred By: Confirmed By:HKAEEM SILVA MD
[2019-05-10 14:32] LABS: PLATELET ESTIMATE NORMAL
[2019-05-10] MEDS ORDERED: INSULIN (NOVOLOG) ASPART 100 UNITS/ML 10ML VIAL ONE (17:50)
[2019-05-10] MEDS ORDERED: KETOROLAC TROMETHAMINE 30 MG/1 ML VIAL IM SCH (18:00)
--- NOTE | 2019-05-10 21:11 | PN ---
Progress Note, Physician - Current Medication List Current Medications: Active Medications Heparin Sodium (Porcine) (Heparin -) 5,000 unit SQ BID [facility] Last Admin: 05/10/19 09:24 Dose: 5,000 unit Insulin Aspart (Novolog Vial Sliding Scale -) 1 vial SQ ACHS [facility]; Protocol Last Admin: 05/10/19 17:51 Dose: Not Given Meclizine HCl (Antivert -) 25 mg PO Q8H PRN PRN Reason: VERTIGO Metformin HCl (Glucophage -) 500 mg PO BIDWM [facility] Last Admin: 05/10/19 17:51 Dose: 500 mg Multivitamins/Minerals/Vitamin C (Tab-A-Vit -) 1 tab PO DAILY [facility] Last Admin: 05/10/19 09:24 Dose: 1 tab Ondansetron HCl (Zofran Injection) 4 mg IVPUSH Q8H PRN PRN Reason: NAUSEA Last Admin: 05/09/19 18:01 Dose: 4 mg Rosuvastatin Calcium (Crestor -) 10 mg PO HS [facility] Last Admin: 05/09/19 22:54 Dose: 10 mg Tramadol HCl (Ultram -) 50 mg PO Q8H PRN PRN Reason: PAIN LEVEL 4 - 10 Valsartan (Diovan -) 80 mg PO DAILY [facility] Last Admin: 05/10/19 09:24 Dose: 80 mg - Objective Vital Signs: Vital Signs Temperature 98.0 F 05/10/19 18:51 Pulse Rate 100 H 05/10/19 18:51 Respiratory Rate 20 05/10/19 18:51 Blood Pressure 137/69 05/10/19 18:51 O2 Sat by Pulse Oximetry (%) 99 05/10/19 09:00 Labs: CBC, BMP 05/10/19 07:52 05/10/19 06:52 INR, PTT INR 1.03 (0.83-1.09) 05/09/19 02:05 Problem List - Problems (1) Vertebral fracture Code(s): [id number] - (2) Weakness Code(s): R53.1 - WEAKNESS (3) Falls Code(s): W19.XXXA - UNSPECIFIED FALL, INITIAL ENCOUNTER (4) Vertigo Code(s): R42 - DIZZINESS AND GIDDINESS (5) HTN (hypertension) Code(s): I10 - ESSENTIAL (PRIMARY) HYPERTENSION (6) HLD (hyperlipidemia) Code(s): E78.5 - HYPERLIPIDEMIA, UNSPECIFIED (7) Diabetes Code(s): E11.9 - TYPE 2 DIABETES MELLITUS WITHOUT COMPLICATIONS
[2019-05-10] MEDS: ROSUVASTATIN CA 10 MG TABLET (FP) PO SCH (22:10)
[2019-05-11] MEDS: INSULIN SLIDING SCALE (NOVOLOG) 1 VIAL SQ SCH ×4 (06:52→21:11)
[2019-05-11] MEDS: metFORMIN HCL 500 MG TABLET (FP) PO SCH ×2 (06:52→17:01)
[2019-05-11] MEDS: HEPARIN NA (PORCINE) 5,000 UNITS/ML 1ML VIAL SQ SCH ×2 (09:30→21:11)
[2019-05-11] MEDS: VALSARTAN 80 MG TABLET (UD) PO SCH (09:30)
[2019-05-11] MEDS: MULTIVITAMINS (DAILY MVI) TABLET (FP) PO SCH (09:31)
[2019-05-11] MEDS ORDERED: MAG HYDROX/AL HYDROX/SIMETH -MYLANTA- ORAL SUSPENSION PO ONE (13:30)
[2019-05-11] MEDS ORDERED: MAG HYDROX/AL HYDROX/SIMETH 30 ML UNIT-DOSE CUP PO ONE (13:45)
[2019-05-11] MEDS: traMADol HCL 50 MG TABLET PO PRN (17:01)
[2019-05-11] MEDS ORDERED: PT OWN MED DRAWER 7, Y5N ONE (20:59)
[2019-05-11] MEDS: ROSUVASTATIN CA 10 MG TABLET (FP) PO SCH (21:11)
--- NOTE | 2019-05-11 23:49 | PN ---
Progress Note, Physician - Current Medication List Current Medications: Active Medications Heparin Sodium (Porcine) (Heparin -) 5,000 unit SQ BID [facility] Last Admin: 05/11/19 21:11 Dose: 5,000 unit Insulin Aspart (Novolog Vial Sliding Scale -) 1 vial SQ ACHS [facility]; Protocol Last Admin: 05/11/19 21:11 Dose: 2 units Meclizine HCl (Antivert -) 25 mg PO Q8H PRN PRN Reason: VERTIGO Metformin HCl (Glucophage -) 1,000 mg PO BID@0700,1630 [facility] Last Admin: 05/11/19 17:01 Dose: 1,000 mg Multivitamins/Minerals/Vitamin C (Tab-A-Vit -) 1 tab PO DAILY [facility] Last Admin: 05/11/19 09:31 Dose: 1 tab Ondansetron HCl (Zofran Injection) 4 mg IVPUSH Q8H PRN PRN Reason: NAUSEA Last Admin: 05/09/19 18:01 Dose: 4 mg Rosuvastatin Calcium (Crestor -) 10 mg PO HS [facility] Last Admin: 05/11/19 21:11 Dose: 10 mg Tramadol HCl (Ultram -) 50 mg PO Q8H PRN PRN Reason: PAIN LEVEL 4 - 10 Last Admin: 05/11/19 17:01 Dose: 50 mg Valsartan (Diovan -) 80 mg PO DAILY [facility] Last Admin: 05/11/19 09:30 Dose: 80 mg - Objective Vital Signs: Vital Signs Temperature 98.5 F 05/11/19 19:38 Pulse Rate 99 H 05/11/19 19:38 Respiratory Rate 22 H 05/11/19 21:00 Blood Pressure 137/82 05/11/19 19:38 O2 Sat by Pulse Oximetry (%) 96 05/10/19 21:00 Labs: CBC, BMP 05/10/19 07:52 05/10/19 06:52 INR, PTT INR 1.03 (0.83-1.09) 05/09/19 02:05 Problem List - Problems (1) Vertebral fracture Code(s): [id number] - (2) Weakness Code(s): R53.1 - WEAKNESS (3) Falls Code(s): W19.XXXA - UNSPECIFIED FALL, INITIAL ENCOUNTER (4) Vertigo Code(s): R42 - DIZZINESS AND GIDDINESS (5) HTN (hypertension) Code(s): I10 - ESSENTIAL (PRIMARY) HYPERTENSION (6) HLD (hyperlipidemia) Code(s): E78.5 - HYPERLIPIDEMIA, UNSPECIFIED (7) Diabetes Code(s): E11.9 - TYPE 2 DIABETES MELLITUS WITHOUT COMPLICATIONS
[2019-05-12] MEDS: traMADol HCL 50 MG TABLET PO PRN (06:05)
[2019-05-12] MEDS: metFORMIN HCL 500 MG TABLET (FP) PO SCH ×2 (06:05→17:37)
[2019-05-12] MEDS: INSULIN SLIDING SCALE (NOVOLOG) 1 VIAL SQ SCH ×4 (06:06→21:23)
[2019-05-12] MEDS: VALSARTAN 80 MG TABLET (UD) PO SCH (10:50)
[2019-05-12] MEDS: MULTIVITAMINS (DAILY MVI) TABLET (FP) PO SCH (10:50)
[2019-05-12] MEDS: HEPARIN NA (PORCINE) 5,000 UNITS/ML 1ML VIAL SQ SCH ×2 (10:50→21:23)
[2019-05-12] MEDS ORDERED: INSULIN (NOVOLOG) ASPART 100 UNITS/ML 10ML VIAL ONE (21:04)
[2019-05-12] MEDS: ROSUVASTATIN CA 10 MG TABLET (FP) PO SCH (21:23)
--- NOTE | 2019-05-12 22:31 | PN ---
Progress Note, Physician History of Present Illness: Pt complaining of lower back pain - Current Medication List Current Medications: Active Medications Heparin Sodium (Porcine) (Heparin -) 5,000 unit SQ BID [facility] Last Admin: 05/12/19 21:23 Dose: 5,000 unit Insulin Aspart (Novolog Vial Sliding Scale -) 1 vial SQ ACHS [facility]; Protocol Last Admin: 05/12/19 21:23 Dose: 2 units Meclizine HCl (Antivert -) 25 mg PO Q8H PRN PRN Reason: VERTIGO Metformin HCl (Glucophage -) 1,000 mg PO BID@0700,1630 [facility] Last Admin: 05/12/19 17:37 Dose: 1,000 mg Multivitamins/Minerals/Vitamin C (Tab-A-Vit -) 1 tab PO DAILY [facility] Last Admin: 05/12/19 10:50 Dose: 1 tab Ondansetron HCl (Zofran Injection) 4 mg IVPUSH Q8H PRN PRN Reason: NAUSEA Last Admin: 05/09/19 18:01 Dose: 4 mg Rosuvastatin Calcium (Crestor -) 10 mg PO HS [facility] Last Admin: 05/12/19 21:23 Dose: 10 mg Valsartan (Diovan -) 80 mg PO DAILY [facility] Last Admin: 05/12/19 10:50 Dose: 80 mg - Objective Vital Signs: Vital Signs Temperature 98.1 F 05/12/19 20:06 Pulse Rate 101 H 05/12/19 20:06 Respiratory Rate 22 H 05/12/19 20:06 Blood Pressure 137/80 05/12/19 20:06 O2 Sat by Pulse Oximetry (%) 96 05/10/19 21:00 Neck: Yes: WNL, Supple Cardiovascular: Yes: WNL, Regular Rate and Rhythm Respiratory: Yes: WNL, Regular, CTA Bilaterally Gastrointestinal: Yes: WNL, Normal Bowel Sounds, Soft, Abdomen, Obese Extremities: Yes: WNL Edema: No Labs: CBC, BMP 05/10/19 07:52 05/10/19 06:52 INR, PTT INR 1.03 (0.83-1.09) 05/09/19 02:05 Problem List - Problems (1) Vertebral fracture Assessment/Plan: Compression of L3 PT eval Spoke to pt at length about STR however pt is refusing DC planning for am Tramadol prn for pain Code(s): [id number] - (2) Weakness Assessment/Plan: Multifactorial Neuro consult PT eval Code(s): R53.1 - WEAKNESS (3) Falls Code(s): W19.XXXA - UNSPECIFIED FALL, INITIAL ENCOUNTER (4) Vertigo Assessment/Plan: Meclizine prn Neuro consult Check echo/carotid doppler Code(s): R42 - DIZZINESS AND GIDDINESS (5) HTN (hypertension) Assessment/Plan: BP stable Cont diovan Code(s): I10 - ESSENTIAL (PRIMARY) HYPERTENSION (6) HLD (hyperlipidemia) Assessment/Plan: Cont crestor Code(s): E78.5 - HYPERLIPIDEMIA, UNSPECIFIED (7) Diabetes Assessment/Plan: Cont metformin Cont sliding scale w/ coverage Code(s): E11.9 - TYPE 2 DIABETES MELLITUS WITHOUT COMPLICATIONS
[2019-05-13] MEDS: CELECOXIB 200 MG CAPSULE PO SCH ×3 (00:31→23:32)
[2019-05-13] MEDS: metFORMIN HCL 500 MG TABLET (FP) PO SCH ×2 (06:34→17:26)
[2019-05-13] MEDS: GABAPENTIN 100 MG CAPSULE (FP) PO SCH ×3 (06:34→23:32)
[2019-05-13] MEDS: INSULIN SLIDING SCALE (NOVOLOG) 1 VIAL SQ SCH ×4 (06:34→23:31)
[2019-05-13] MEDS ORDERED: PT OWN MED DRAWER 7, Y5N ONE (09:12)
[2019-05-13] MEDS: MULTIVITAMINS (DAILY MVI) TABLET (FP) PO SCH (09:15)
[2019-05-13] MEDS: VALSARTAN 80 MG TABLET (UD) PO SCH (09:15)
[2019-05-13] MEDS: HEPARIN NA (PORCINE) 5,000 UNITS/ML 1ML VIAL SQ SCH ×2 (09:15→23:32)
--- NOTE | 2019-05-13 09:26 | CON.ORTH ---
Consult Reason for Consultation:: LBP - Past Medical History Cardio/Vascular: Yes: HTN, Hyperlipdemia ...: No Endocrine: Yes: Diabetes Mellitus - Alcohol/Substance Use Hx Alcohol Use: No - Smoking History Smoking history: Never smoked Have you smoked in the past 12 months: No Home Medications - Allergies Allergies/Adverse Reactions: Allergies Allergy/AdvReac Type Severity Reaction Status Date / Time No Known Allergies Allergy Verified 01/11/19 12:42 - Home Medications Home Medications: Ambulatory Orders Biotin 5,000 mcg PO DAILY 11/17/16 Cholecalciferol (Vitamin D3) [Vitamin D3] 2,000 unit PO DAILY 11/17/16 Docosahexanoic Acid/Epa [Fish Oil Concentrate Softgel] 1 each PO DAILY 11/17/16 Fexofenadine HCl [Robina Allergy] 180 mg PO DAILY 11/17/16 Multivitamins [Tab-A-Vit -] 1 tab PO DAILY 11/17/16 Rosuvastatin Calcium [Crestor] 10 mg PO HS 11/17/16 Metformin HCl [Glucophage] 500 mg PO BID #30 tablet 01/11/19 Valsartan [Diovan] 80 mg PO DAILY #14 tablet 01/11/19 Physical Exam for Ortho Vital Signs: Vital Signs Temperature 98.8 F 05/13/19 06:02 Pulse Rate 90 05/13/19 06:02 Respiratory Rate 20 05/13/19 06:02 Blood Pressure 150/78 05/13/19 06:02 O2 Sat by Pulse Oximetry (%) 96 05/10/19 21:00 Labs: CBC, BMP 05/10/19 07:52 05/10/19 06:52 INR, PTT INR 1.03 (0.83-1.09) 05/09/19 02:05 - Lower Extremity Pelvis: Yes: Exam WNL Hip: Yes: Exam WNL Other Findings/Remarks: + ttp paraspinals, decr rom, - SLR, no radiculopathy,2+ relexes b/l, nvi Imaging - Results Cat Scan: Report Reviewed, Image Reviewed MRI: Report Reviewed, Image Reviewed Assessment/Plan 3 yo F, with PMH of von Willebrand disease, NIDDM (known to be non-compliant with metformin, frequent hyperglycemia), HTN, and HLD, who is presenting via EMS from home after "my leg gave out today". Pt states she was walking in the home, when her "right leg gave out, but I caught myself on the furniture. I was not able to get up off the floor". EMS states they knocked the door down, to reach the pt, and had to go down 1 flight of stairs to the pts entryway. Pt had been on the floor throughout the day, and needed assistance to be transferred to the ambulance. Pt has had multiple falls that are similar over the past few months, with her lower back cramping and then R leg giving way. Pt denies any urinary incontinence, fever, or weakness except for the moment prior to the fall. Pt denies any fevers/chills, headache, vision changes, syncope, chest pain , palpitations, SOB, nausea/vomiting, abdominal pain, urinary symptoms, diarrhea /constipation, or leg swelling. a/p L3 compression fx- acute/subacute, foraminal stenosis, spondylosis PT eval, wbat lumbar corset may be helpful pain control d/c planning for snf d/w Dr. Field
--- NOTE | 2019-05-13 10:50 | PN ---
Progress Note, Physician History of Present Illness: Pt is a 73 y/o female with PMH of von Willebrand disease, NIDDM (known to be non -compliant with metformin, frequent hyperglycemia), HTN, and HLD, who is presenting via EMS from home after "my leg gave out today". Pt is a poor historian. Pt states she was walking in the home, when her "right leg gave out, but I caught myself on the furniture. I was not able to get up off the floor". EMS states they knocked the door down, to reach the pt, and had to go down 1 flight of stairs to the pts entryway. Pt had been on the floor throughout the day, and needed assistance to be transferred to the ambulance. Pt has had multiple falls that are similar over the past few months, with her lower back cramping and then R leg giving way. Pt also complains of vertigo wc she states began in hospital w/ multiple episodes of vomiting. Pt had ct scan head in ER wc did not show any acute pathology. - Current Medication List Current Medications: Active Medications Celecoxib (Celebrex -) 200 mg PO BID [facility] Last Admin: 05/13/19 09:15 Dose: 200 mg Gabapentin (Neurontin -) 100 mg PO TID [facility] Last Admin: 05/13/19 06:34 Dose: 100 mg Heparin Sodium (Porcine) (Heparin -) 5,000 unit SQ BID [facility] Last Admin: 05/13/19 09:15 Dose: 5,000 unit Insulin Aspart (Novolog Vial Sliding Scale -) 1 vial SQ [facility]; Protocol Last Admin: 05/13/19 06:34 Dose: 2 units Meclizine HCl (Antivert -) 25 mg PO Q8H PRN PRN Reason: VERTIGO Metformin HCl (Glucophage -) 1,000 mg PO BID@0700,1630 [facility] Last Admin: 05/13/19 06:34 Dose: 1,000 mg Multivitamins/Minerals/Vitamin C (Tab-A-Vit -) 1 tab PO DAILY [facility] Last Admin: 05/13/19 09:15 Dose: 1 tab Ondansetron HCl (Zofran Injection) 4 mg IVPUSH Q8H PRN PRN Reason: NAUSEA Last Admin: 05/09/19 18:01 Dose: 4 mg Rosuvastatin Calcium (Crestor -) 10 mg PO HS [facility] Last Admin: 05/12/19 21:23 Dose: 10 mg Valsartan (Diovan -) 80 mg PO DAILY [facility] Last Admin: 05/13/19 09:15 Dose: 80 mg - Objective Vital Signs: Vital Signs Temperature 98.8 F 05/13/19 06:02 Pulse Rate 90 05/13/19 06:02 Respiratory Rate 20 05/13/19 06:02 Blood Pressure 150/78 05/13/19 06:02 O2 Sat by Pulse Oximetry (%) 96 05/10/19 21:00 Eyes: Yes: WNL, Conjunctiva Clear, EOM Intact HENT: Yes: WNL, Atraumatic, Normocephalic Neck: Yes: WNL, Supple, Trachea Midline Cardiovascular: Yes: WNL, Regular Rate and Rhythm Respiratory: Yes: WNL, Regular, CTA Bilaterally Gastrointestinal: Yes: WNL, Normal Bowel Sounds Genitourinary: Yes: WNL Musculoskeletal: Yes: WNL Extremities: Yes: WNL Edema: No Integumentary: Yes: WNL Neurological: Yes: WNL, Alert, Oriented ...Motor Strength: WNL Psychiatric: Yes: WNL Labs: CBC, BMP 05/10/19 07:52 05/10/19 06:52 INR, PTT INR 1.03 (0.83-1.09) 05/09/19 02:05 Problem List - Problems (1) Assistance needed for ambulation and movement Code(s): [id number] - (2) Diabetes Code(s): E11.9 - TYPE 2 DIABETES MELLITUS WITHOUT COMPLICATIONS (3) Fall Code(s): W19.XXXA - UNSPECIFIED FALL, INITIAL ENCOUNTER Qualifiers: Encounter type: initial encounter Qualified Code(s): W19.XXXA - Unspecified fall, initial encounter (4) Falls Code(s): W19.XXXA - UNSPECIFIED FALL, INITIAL ENCOUNTER (5) HLD (hyperlipidemia) Code(s): E78.5 - HYPERLIPIDEMIA, UNSPECIFIED (6) HTN (hypertension) Code(s): I10 - ESSENTIAL (PRIMARY) HYPERTENSION (7) L3 vertebral fracture Code(s): S32.039A - UNSP FRACTURE OF THIRD LUMBAR VERTEBRA, INIT FOR CLOS FX Qualifiers: Encounter type: initial encounter Fracture type: closed Fracture morphology: other fracture Qualified Code(s): S32.038A - Other fracture of third lumbar vertebra, initial encounter for closed fracture (8) Peripheral neuropathy Code(s): G62.9 - POLYNEUROPATHY, UNSPECIFIED (9) Vertebral fracture Code(s): [id number] - (10) Vertigo Code(s): R42 - DIZZINESS AND GIDDINESS (11) Weakness Code(s): R53.1 - WEAKNESS (12) Hyperglycemia Code(s): R73.9 - HYPERGLYCEMIA, UNSPECIFIED (13) Pain of right great toe Code(s): M79.674 - PAIN IN RIGHT TOE(S) (14) Right anterior knee pain Code(s): M25.561 - PAIN IN RIGHT KNEE Assessment/Plan von Willebrand disease, NIDDM (known to be non-compliant with metformin, frequent hyperglycemia), HTN, and HLD presenting with Compression of L3 fx s tach on ekg, echo nl ef Plan cardiac thakkar stable pain control dvt plx cardiac thakkar stable
--- NOTE | 2019-05-13 22:45 | PN ---
Progress Note, Physician History of Present Illness: Pt complaining of lower back pain - Current Medication List Current Medications: Active Medications Celecoxib (Celebrex -) 200 mg PO BID [facility] Last Admin: 05/13/19 09:15 Dose: 200 mg Gabapentin (Neurontin -) 100 mg PO TID [facility] Last Admin: 05/13/19 13:54 Dose: 100 mg Heparin Sodium (Porcine) (Heparin -) 5,000 unit SQ BID [facility] Last Admin: 05/13/19 09:15 Dose: 5,000 unit Insulin Aspart (Novolog Vial Sliding Scale -) 1 vial SQ ACHS [facility]; Protocol Last Admin: 05/13/19 17:31 Dose: Not Given Meclizine HCl (Antivert -) 25 mg PO Q8H PRN PRN Reason: VERTIGO Metformin HCl (Glucophage -) 1,000 mg PO BID@0700,1630 [facility] Last Admin: 05/13/19 17:26 Dose: 1,000 mg Multivitamins/Minerals/Vitamin C (Tab-A-Vit -) 1 tab PO DAILY [facility] Last Admin: 05/13/19 09:15 Dose: 1 tab Ondansetron HCl (Zofran Injection) 4 mg IVPUSH Q8H PRN PRN Reason: NAUSEA Last Admin: 05/09/19 18:01 Dose: 4 mg Rosuvastatin Calcium (Crestor -) 10 mg PO HS [facility] Last Admin: 05/12/19 21:23 Dose: 10 mg Valsartan (Diovan -) 80 mg PO DAILY [facility] Last Admin: 05/13/19 09:15 Dose: 80 mg - Objective Vital Signs: Vital Signs Temperature 97.9 F 05/13/19 16:20 Pulse Rate 98 H 05/13/19 16:20 Respiratory Rate 20 05/13/19 16:20 Blood Pressure 136/67 05/13/19 16:20 O2 Sat by Pulse Oximetry (%) 96 05/10/19 21:00 Neck: Yes: WNL, Supple Cardiovascular: Yes: WNL, Regular Rate and Rhythm Respiratory: Yes: WNL, Regular, CTA Bilaterally Gastrointestinal: Yes: WNL, Normal Bowel Sounds, Soft Extremities: Yes: WNL Edema: No Labs: CBC, BMP 05/10/19 07:52 05/10/19 06:52 INR, PTT INR 1.03 (0.83-1.09) 05/09/19 02:05 Problem List - Problems (1) Vertebral fracture Assessment/Plan: Compression of L3 PT eval Awaiting placement for STR Ortho consult noted Tramadol prn for pain Code(s): [id number] - (2) Weakness Assessment/Plan: Multifactorial Neuro consult noted PT eval Code(s): R53.1 - WEAKNESS (3) Falls Code(s): W19.XXXA - UNSPECIFIED FALL, INITIAL ENCOUNTER (4) Vertigo Assessment/Plan: Meclizine prn Resolved Carotid doppler did not show any significant stenosis Code(s): R42 - DIZZINESS AND GIDDINESS (5) HTN (hypertension) Assessment/Plan: BP stable Cont diovan Code(s): I10 - ESSENTIAL (PRIMARY) HYPERTENSION (6) HLD (hyperlipidemia) Assessment/Plan: Cont crestor Code(s): E78.5 - HYPERLIPIDEMIA, UNSPECIFIED (7) Diabetes Assessment/Plan: Cont metformin Cont sliding scale w/ coverage Code(s): E11.9 - TYPE 2 DIABETES MELLITUS WITHOUT COMPLICATIONS
[2019-05-13] MEDS: ROSUVASTATIN CA 10 MG TABLET (FP) PO SCH (23:32)
[2019-05-14] MEDS: INSULIN SLIDING SCALE (NOVOLOG) 1 VIAL SQ SCH ×4 (06:53→21:18)
[2019-05-14] MEDS: GABAPENTIN 100 MG CAPSULE (FP) PO SCH ×3 (06:54→21:14)
[2019-05-14] MEDS: metFORMIN HCL 500 MG TABLET (FP) PO SCH ×2 (06:54→16:58)
[2019-05-14] MEDS ORDERED: PT OWN MED DRAWER 7, Y5N ONE ×2 (09:42→21:01)
[2019-05-14] MEDS: HEPARIN NA (PORCINE) 5,000 UNITS/ML 1ML VIAL SQ SCH ×2 (09:46→21:14)
[2019-05-14] MEDS: CELECOXIB 200 MG CAPSULE PO SCH ×2 (09:46→21:14)
[2019-05-14] MEDS: MULTIVITAMINS (DAILY MVI) TABLET (FP) PO SCH (09:46)
[2019-05-14] MEDS: VALSARTAN 80 MG TABLET (UD) PO SCH (09:46)
[2019-05-14] MEDS ORDERED: INSULIN (NOVOLOG) ASPART 100 UNITS/ML 10ML VIAL ONE (11:38)
--- NOTE | 2019-05-14 11:40 | PN ---
Progress Note, Physician History of Present Illness: Pt is a 73 y/o female with PMH of von Willebrand disease, NIDDM (known to be non -compliant with metformin, frequent hyperglycemia), HTN, and HLD, who is presenting via EMS from home after "my leg gave out today". Pt is a poor historian. Pt states she was walking in the home, when her "right leg gave out, but I caught myself on the furniture. I was not able to get up off the floor". EMS states they knocked the door down, to reach the pt, and had to go down 1 flight of stairs to the pts entryway. Pt had been on the floor throughout the day, and needed assistance to be transferred to the ambulance. Pt has had multiple falls that are similar over the past few months, with her lower back cramping and then R leg giving way. Pt also complains of vertigo wc she states began in hospital w/ multiple episodes of vomiting. Pt had ct scan head in ER wc did not show any acute pathology. - Current Medication List Current Medications: Active Medications Celecoxib (Celebrex -) 200 mg PO BID [facility] Last Admin: 05/14/19 09:46 Dose: 200 mg Gabapentin (Neurontin -) 100 mg PO TID [facility] Last Admin: 05/14/19 06:54 Dose: 100 mg Heparin Sodium (Porcine) (Heparin -) 5,000 unit SQ BID [facility] Last Admin: 05/14/19 09:46 Dose: 5,000 unit Insulin Aspart (Novolog Vial Sliding Scale -) 1 vial SQ [facility]; Protocol Last Admin: 05/14/19 06:53 Dose: 2 units Meclizine HCl (Antivert -) 25 mg PO Q8H PRN PRN Reason: VERTIGO Metformin HCl (Glucophage -) 1,000 mg PO BID@0700,1630 [facility] Last Admin: 05/14/19 06:54 Dose: 1,000 mg Multivitamins/Minerals/Vitamin C (Tab-A-Vit -) 1 tab PO DAILY [facility] Last Admin: 05/14/19 09:46 Dose: 1 tab Ondansetron HCl (Zofran Injection) 4 mg IVPUSH Q8H PRN PRN Reason: NAUSEA Last Admin: 05/09/19 18:01 Dose: 4 mg Rosuvastatin Calcium (Crestor -) 10 mg PO HS [facility] Last Admin: 05/13/19 23:32 Dose: 10 mg Valsartan (Diovan -) 80 mg PO DAILY [facility] Last Admin: 05/14/19 09:46 Dose: 80 mg - Objective Vital Signs: Vital Signs Temperature 97.9 F 05/13/19 16:20 Pulse Rate 98 H 05/13/19 16:20 Respiratory Rate 20 05/13/19 16:20 Blood Pressure 136/67 05/13/19 16:20 O2 Sat by Pulse Oximetry (%) 97 05/13/19 21:00 Eyes: Yes: WNL, Conjunctiva Clear, EOM Intact HENT: Yes: WNL, Atraumatic, Normocephalic Neck: Yes: WNL, Supple, Trachea Midline Cardiovascular: Yes: WNL, Regular Rate and Rhythm Respiratory: Yes: WNL, Regular, CTA Bilaterally Gastrointestinal: Yes: WNL, Normal Bowel Sounds Genitourinary: Yes: WNL Musculoskeletal: Yes: WNL Extremities: Yes: WNL Edema: No Integumentary: Yes: WNL Neurological: Yes: WNL, Alert, Oriented ...Motor Strength: WNL Psychiatric: Yes: WNL Labs: CBC, BMP 05/10/19 07:52 05/10/19 06:52 INR, PTT INR 1.03 (0.83-1.09) 05/09/19 02:05 Problem List - Problems (1) Assistance needed for ambulation and movement Code(s): [id number] - (2) Diabetes Code(s): E11.9 - TYPE 2 DIABETES MELLITUS WITHOUT COMPLICATIONS (3) Fall Code(s): W19.XXXA - UNSPECIFIED FALL, INITIAL ENCOUNTER Qualifiers: Encounter type: initial encounter Qualified Code(s): W19.XXXA - Unspecified fall, initial encounter (4) Falls Code(s): W19.XXXA - UNSPECIFIED FALL, INITIAL ENCOUNTER (5) HLD (hyperlipidemia) Code(s): E78.5 - HYPERLIPIDEMIA, UNSPECIFIED (6) HTN (hypertension) Code(s): I10 - ESSENTIAL (PRIMARY) HYPERTENSION (7) L3 vertebral fracture Code(s): S32.039A - UNSP FRACTURE OF THIRD LUMBAR VERTEBRA, INIT FOR CLOS FX Qualifiers: Encounter type: initial encounter Fracture type: closed Fracture morphology: other fracture Qualified Code(s): S32.038A - Other fracture of third lumbar vertebra, initial encounter for closed fracture (8) Peripheral neuropathy Code(s): G62.9 - POLYNEUROPATHY, UNSPECIFIED (9) Vertebral fracture Code(s): [id number] - (10) Vertigo Code(s): R42 - DIZZINESS AND GIDDINESS (11) Weakness Code(s): R53.1 - WEAKNESS (12) Hyperglycemia Code(s): R73.9 - HYPERGLYCEMIA, UNSPECIFIED (13) Pain of right great toe Code(s): M79.674 - PAIN IN RIGHT TOE(S) (14) Right anterior knee pain Code(s): M25.561 - PAIN IN RIGHT KNEE Assessment/Plan von Willebrand disease, NIDDM (known to be non-compliant with metformin, frequent hyperglycemia), HTN, and HLD presenting with Compression of L3 fx s tach on ekg, echo nl ef Plan cardiac thakkar stable pain control dvt plx cardiac thakkar stable
[2019-05-14] MEDS: LIDOCAINE 5% TOPICAL PATCH TP SCH (14:11)
[2019-05-14] MEDS: ROSUVASTATIN CA 10 MG TABLET (FP) PO SCH (21:13)
[2019-05-14] MEDS ORDERED: LIDOCAINE PATCH REMOVAL MC SCH (22:00)
--- NOTE | 2019-05-14 22:15 | PN ---
Progress Note, Physician - Current Medication List Current Medications: Active Medications Celecoxib (Celebrex -) 200 mg PO BID [facility] Last Admin: 05/14/19 21:14 Dose: 200 mg Gabapentin (Neurontin -) 200 mg PO TID [facility] Last Admin: 05/14/19 21:14 Dose: 200 mg Heparin Sodium (Porcine) (Heparin -) 5,000 unit SQ BID [facility] Last Admin: 05/14/19 21:14 Dose: 5,000 unit Insulin Aspart (Novolog Vial Sliding Scale -) 1 vial SQ ACHS [facility]; Protocol Last Admin: 05/14/19 21:18 Dose: 2 units Lidocaine (Lidoderm Patch -) 1 patch TP DAILY [facility] Last Admin: 05/14/19 14:11 Dose: 1 patch Meclizine HCl (Antivert -) 25 mg PO Q8H PRN PRN Reason: VERTIGO Metformin HCl (Glucophage -) 1,000 mg PO BID@0700,1630 [facility] Last Admin: 05/14/19 16:58 Dose: 1,000 mg Miscellaneous (Lidoderm Patch Removal) 1 each MC DAILY@2200 [facility] Last Admin: 05/14/19 21:14 Dose: 1 each Multivitamins/Minerals/Vitamin C (Tab-A-Vit -) 1 tab PO DAILY [facility] Last Admin: 05/14/19 09:46 Dose: 1 tab Ondansetron HCl (Zofran Injection) 4 mg IVPUSH Q8H PRN PRN Reason: NAUSEA Last Admin: 05/09/19 18:01 Dose: 4 mg Rosuvastatin Calcium (Crestor -) 10 mg PO HS [facility] Last Admin: 05/14/19 21:13 Dose: 10 mg Valsartan (Diovan -) 80 mg PO DAILY [facility] Last Admin: 05/14/19 09:46 Dose: 80 mg - Objective Vital Signs: Vital Signs Temperature 98.2 F 05/14/19 19:34 Pulse Rate 89 05/14/19 19:34 Respiratory Rate 20 05/14/19 20:08 Blood Pressure 117/66 05/14/19 19:34 O2 Sat by Pulse Oximetry (%) 97 05/14/19 20:08 Labs: CBC, BMP 05/10/19 07:52 05/10/19 06:52 INR, PTT INR 1.03 (0.83-1.09) 05/09/19 02:05 Problem List - Problems (1) Vertebral fracture Code(s): [id number] - (2) Weakness Code(s): R53.1 - WEAKNESS (3) Falls Code(s): W19.XXXA - UNSPECIFIED FALL, INITIAL ENCOUNTER (4) Vertigo Code(s): R42 - DIZZINESS AND GIDDINESS (5) HTN (hypertension) Code(s): I10 - ESSENTIAL (PRIMARY) HYPERTENSION (6) HLD (hyperlipidemia) Code(s): E78.5 - HYPERLIPIDEMIA, UNSPECIFIED (7) Diabetes Code(s): E11.9 - TYPE 2 DIABETES MELLITUS WITHOUT COMPLICATIONS
[2019-05-15] MEDS: INSULIN SLIDING SCALE (NOVOLOG) 1 VIAL SQ SCH ×3 (06:06→16:35)
[2019-05-15] MEDS: GABAPENTIN 100 MG CAPSULE (FP) PO SCH ×2 (06:06→14:33)
[2019-05-15] MEDS: metFORMIN HCL 500 MG TABLET (FP) PO SCH ×2 (06:06→16:36)
[2019-05-15] MEDS ORDERED: PT OWN MED DRAWER 7, Y5N ONE (10:26)
[2019-05-15] MEDS: HEPARIN NA (PORCINE) 5,000 UNITS/ML 1ML VIAL SQ SCH (10:28)
[2019-05-15] MEDS: MULTIVITAMINS (DAILY MVI) TABLET (FP) PO SCH (10:28)
[2019-05-15] MEDS: VALSARTAN 80 MG TABLET (UD) PO SCH (10:28)
[2019-05-15] MEDS: CELECOXIB 200 MG CAPSULE PO SCH (10:28)
[2019-05-15] MEDS: LIDOCAINE 5% TOPICAL PATCH TP SCH (10:30)
--- NOTE | 2019-05-15 11:23 | PN ---
Progress Note, Physician History of Present Illness: Pt is a 73 y/o female with PMH of von Willebrand disease, NIDDM (known to be non -compliant with metformin, frequent hyperglycemia), HTN, and HLD, who is presenting via EMS from home after "my leg gave out today". Pt is a poor historian. Pt states she was walking in the home, when her "right leg gave out, but I caught myself on the furniture. I was not able to get up off the floor". EMS states they knocked the door down, to reach the pt, and had to go down 1 flight of stairs to the pts entryway. Pt had been on the floor throughout the day, and needed assistance to be transferred to the ambulance. Pt has had multiple falls that are similar over the past few months, with her lower back cramping and then R leg giving way. Pt also complains of vertigo wc she states began in hospital w/ multiple episodes of vomiting. Pt had ct scan head in ER wc did not show any acute pathology. - Current Medication List Current Medications: Active Medications Celecoxib (Celebrex -) 200 mg PO BID [facility] Last Admin: 05/15/19 10:28 Dose: 200 mg Gabapentin (Neurontin -) 200 mg PO TID [facility] Last Admin: 05/15/19 06:06 Dose: 200 mg Heparin Sodium (Porcine) (Heparin -) 5,000 unit SQ BID [facility] Last Admin: 05/15/19 10:28 Dose: 5,000 unit Insulin Aspart (Novolog Vial Sliding Scale -) 1 vial SQ ACHS [facility]; Protocol Last Admin: 05/15/19 06:06 Dose: 2 units Lidocaine (Lidoderm Patch -) 1 patch TP DAILY [facility] Last Admin: 05/15/19 10:30 Dose: 1 patch Meclizine HCl (Antivert -) 25 mg PO Q8H PRN PRN Reason: VERTIGO Last Admin: 05/15/19 06:06 Dose: 25 mg Metformin HCl (Glucophage -) 1,000 mg PO BID@0700,1630 [facility] Last Admin: 05/15/19 06:06 Dose: 1,000 mg Miscellaneous (Lidoderm Patch Removal) 1 each MC DAILY@2200 [facility] Last Admin: 05/14/19 21:14 Dose: 1 each Multivitamins/Minerals/Vitamin C (Tab-A-Vit -) 1 tab PO DAILY [facility] Last Admin: 05/15/19 10:28 Dose: 1 tab Ondansetron HCl (Zofran Injection) 4 mg IVPUSH Q8H PRN PRN Reason: NAUSEA Last Admin: 05/09/19 18:01 Dose: 4 mg Rosuvastatin Calcium (Crestor -) 10 mg PO HS [facility] Last Admin: 05/14/19 21:13 Dose: 10 mg Valsartan (Diovan -) 80 mg PO DAILY [facility] Last Admin: 05/15/19 10:28 Dose: 80 mg - Objective Vital Signs: Vital Signs Temperature 98.5 F 05/15/19 06:53 Pulse Rate 98 H 05/15/19 06:53 Respiratory Rate 20 05/15/19 06:53 Blood Pressure 142/75 05/15/19 06:53 O2 Sat by Pulse Oximetry (%) 97 05/14/19 20:08 Eyes: Yes: WNL, Conjunctiva Clear, EOM Intact HENT: Yes: WNL, Atraumatic, Normocephalic Neck: Yes: WNL, Supple, Trachea Midline Cardiovascular: Yes: WNL, Regular Rate and Rhythm Respiratory: Yes: WNL, Regular, CTA Bilaterally Gastrointestinal: Yes: WNL, Normal Bowel Sounds Genitourinary: Yes: WNL Musculoskeletal: Yes: WNL Extremities: Yes: WNL Edema: No Integumentary: Yes: WNL Neurological: Yes: WNL, Alert, Oriented ...Motor Strength: WNL Psychiatric: Yes: WNL Labs: CBC, BMP 05/10/19 07:52 05/10/19 06:52 INR, PTT INR 1.03 (0.83-1.09) 05/09/19 02:05 Problem List - Problems (1) Assistance needed for ambulation and movement Code(s): [id number] - (2) Diabetes Code(s): E11.9 - TYPE 2 DIABETES MELLITUS WITHOUT COMPLICATIONS (3) Fall Code(s): W19.XXXA - UNSPECIFIED FALL, INITIAL ENCOUNTER Qualifiers: Encounter type: initial encounter Qualified Code(s): W19.XXXA - Unspecified fall, initial encounter (4) Falls Code(s): W19.XXXA - UNSPECIFIED FALL, INITIAL ENCOUNTER (5) HLD (hyperlipidemia) Code(s): E78.5 - HYPERLIPIDEMIA, UNSPECIFIED (6) HTN (hypertension) Code(s): I10 - ESSENTIAL (PRIMARY) HYPERTENSION (7) L3 vertebral fracture Code(s): S32.039A - UNSP FRACTURE OF THIRD LUMBAR VERTEBRA, INIT FOR CLOS FX Qualifiers: Encounter type: initial encounter Fracture type: closed Fracture morphology: other fracture Qualified Code(s): S32.038A - Other fracture of third lumbar vertebra, initial encounter for closed fracture (8) Peripheral neuropathy Code(s): G62.9 - POLYNEUROPATHY, UNSPECIFIED (9) Vertebral fracture Code(s): [id number] - (10) Vertigo Code(s): R42 - DIZZINESS AND GIDDINESS (11) Weakness Code(s): R53.1 - WEAKNESS (12) Hyperglycemia Code(s): R73.9 - HYPERGLYCEMIA, UNSPECIFIED (13) Pain of right great toe Code(s): M79.674 - PAIN IN RIGHT TOE(S) (14) Right anterior knee pain Code(s): M25.561 - PAIN IN RIGHT KNEE Assessment/Plan von Willebrand disease, NIDDM (known to be non-compliant with metformin, frequent hyperglycemia), HTN, and HLD presenting with Compression of L3 fx s tach on ekg, echo nl ef Plan cardiac thakkar stable pain control dvt plx cardiac thakkar stable
[2019-05-15 19:21] VITALS: BP 154/77; PULSE 93; TEMP 97.5
== END 2019-05-15 20:55 | DRG 552 ==
LOC: JER 01:10 → JERBED 04:26 → J8W 16:17
PROVIDERS: ADMIT Internal Medicine; ATTEND Internal Medicine
DX: S32.039A Unspecified fracture of third lumbar vertebra, initial encounter for closed fracture (principal); R42 Dizziness and giddiness; E11.42 Type 2 diabetes mellitus with diabetic polyneuropathy; M47.9 Spondylosis, unspecified; E11.40 Type 2 diabetes mellitus with diabetic neuropathy, unspecified; I10 Essential (primary) hypertension; E78.5 Hyperlipidemia, unspecified; W19.XXXA Unspecified fall, initial encounter; Y93.9 Activity, unspecified; Y92.89 Other specified places as the place of occurrence of the external cause
CPT/HCPCS: 36415; 70450-TC; 71045-TC-FY; 72125-TC; 72131-TC; 72148-TC; 72192-TC; 80053; 82550; 82607; 82728; 82962; 83540; 83550; 84443; 84484; 85025; 85610; 85651; 85730; 86140; 86593; 93005; 93010; 93306-TC; 93880-TC; 97116-GP; 97162-GP; 99284-25; J1644

== ENCOUNTER 2020-11-03 22:24 | Inpatient (IN) | payer OTHER ==
[2020-11-03 23:48] LABS: BASO % 0.2 % (0-2.0); HEMATOCRIT 24.9 % (32.4-45.2); HEMOGLOBIN 8.1 GM/dL (10.7-15.3); LYMPH % 28.7 % (8-40); MCHC 32.5 g/dl (32.0-36.0); MEAN CELL VOLUME 86.3 fl (80-96); MEAN PLT VOLUME 8.4 fl (7.5-11.1); NEUT % 62.1 % (42.8-82.8); PLATELET COUNT 237 K/MM3 (134-434); RBC 2.89 M/mm3 (3.60-5.2); VENOUS BASE EXCESS -2.2 mmol/L (-2-2); VENOUS O2 SATURATION 81.5 % (70-80); VENOUS PCO2 37.9 mmHg (38-52); VENOUS PH 7.391 (7.310-7.410)
[2020-11-03 23:59] LABS: INR 1.14 (0.83-1.09)
[2020-11-04 00:02] LABS: ACTIVATED PTT 27.1 SECONDS (25.2-36.5)
[2020-11-04] MEDS ORDERED: LIDOCAINE 5% TOPICAL PATCH TP ONE (00:08)
[2020-11-04 00:11] LABS: CHLORIDE 107 mmol/L (98-107); SODIUM 137 mmol/L (136-145)
[2020-11-04 00:13] LABS: ALBUMIN 3.4 g/dl (3.4-5.0); ANION GAP 6 MMOL/L (8-16); BLOOD UREA NITROGEN 26.1 mg/dL (7-18); CALCIUM 9.9 mg/dL (8.5-10.1); CO2 24 mmol/L (21-32); GLUCOSE,RANDOM 140 mg/dL (74-106); MAGNESIUM 1.9 mg/dL (1.8-2.4)
[2020-11-04 00:16] LABS: CREATININE 0.9 mg/dL (0.55-1.3); SGOT/AST 49 U/L (15-37); SGPT/ALT 26 U/L (13-61)
[2020-11-04 00:18] LABS: BILIRUBIN,TOTAL 0.3 mg/dL (0.2-1); TOT PROT 11.3 g/dl (6.4-8.2)
[2020-11-04 00:19] LABS: PHOSPHOROUS 4.1 mg/dL (2.5-4.9)
[2020-11-04 00:19] LABS: ALK PHOS 54 U/L (45-117)
[2020-11-04] MEDS ORDERED: LIDOCAINE 5% TOPICAL PATCH ONE (00:36)
[2020-11-04 10:24] LABS: RETICULOCYTES 0.86 % (0.5-1.5)
[2020-11-04] MEDS: ENOXAPARIN NA (PORCINE) 40 MG/0.4 ML DISP.SYRIN SQ SCH (11:02)
[2020-11-04] MEDS: VALSARTAN 80 MG TABLET PO SCH (11:02)
[2020-11-04 11:59] LABS: PH,URINE 5.5 (5.0-8.0); URINE APPEARANCE CLEAR; URINE BILIRUBIN NEGATIVE (NEGATIVE); URINE COLOR YELLOW; URINE GLUCOSE (UA) NEGATIVE (NEGATIVE); URINE KETONE NEGATIVE (NEGATIVE); URINE LEUK ESTERASE NEGATIVE (NEGATIVE); URINE NITRITE NEGATIVE (NEGATIVE); URINE PROTEIN TRACE (NEGATIVE); URINE UROBILINOGEN 0.2 mg/dL (0.2-1.0)
[2020-11-04] MEDS: metFORMIN HCL 500 MG TABLET (FP) PO SCH (16:54)
[2020-11-04] MEDS: ROSUVASTATIN CA 10 MG TABLET (FP) PO SCH (21:29)
[2020-11-04] MEDS ORDERED: LIDOCAINE PATCH REMOVAL MC ONE (22:00)
[2020-11-05] MEDS: metFORMIN HCL 500 MG TABLET (FP) PO SCH ×2 (06:00→17:15)
[2020-11-05] MEDS: INSULIN SLIDING SCALE (NOVOLOG) 1 VIAL SQ SCH ×4 (06:00→21:41)
[2020-11-05 08:28] LABS: BASO % 0.3 % (0-2.0); EOS % 2.4 % (0-4.5); HEMATOCRIT 24.1 % (32.4-45.2); HEMOGLOBIN 7.9 GM/dL (10.7-15.3); LYMPH % 48.7 % (8-40); MCH 27.8 pg (25.7-33.7); MCHC 32.6 g/dl (32.0-36.0); MEAN PLT VOLUME 7.7 fl (7.5-11.1); MONO % 11.9 % (3.8-10.2); NEUT % 36.7 % (42.8-82.8); PLATELET COUNT 203 K/MM3 (134-434); RBC 2.84 M/mm3 (3.60-5.2); RDW 19.6 % (11.6-15.6); WHITE BLOOD COUNT 2.8 K/mm3 (4.0-10.0)
[2020-11-05 08:50] LABS: ALBUMIN 3.2 g/dl (3.4-5.0); BLOOD UREA NITROGEN 22.2 mg/dL (7-18); CALCIUM 9.7 mg/dL (8.5-10.1)
[2020-11-05 08:53] LABS: CREATININE 0.7 mg/dL (0.55-1.3)
[2020-11-05 08:55] LABS: BILIRUBIN,TOTAL 0.2 mg/dL (0.2-1); TOT PROT 10.3 g/dl (6.4-8.2)
[2020-11-05 09:18] LABS: ANISOCYTOSIS 2+; PLATELET ESTIMATE NORMAL
[2020-11-05] MEDS: VALSARTAN 80 MG TABLET PO SCH (11:04)
[2020-11-05] MEDS: ENOXAPARIN NA (PORCINE) 40 MG/0.4 ML DISP.SYRIN SQ SCH (11:05)
[2020-11-05 15:09] LABS: N-TERMINAL BNP 133.6 pg/ml (5-450)
[2020-11-05] MEDS: ACETAMINOPHEN 325 MG TABLET (FP) PO PRN ×2 (15:15→21:45)
[2020-11-05] MEDS: ROSUVASTATIN CA 10 MG TABLET (FP) PO SCH (21:40)
[2020-11-06] MEDS: INSULIN SLIDING SCALE (NOVOLOG) 1 VIAL SQ SCH ×4 (06:36→22:17)
[2020-11-06] MEDS: metFORMIN HCL 500 MG TABLET (FP) PO SCH ×2 (06:36→18:30)
[2020-11-06 09:00] LABS: BASO % 0.3 % (0-2.0); EOS % 1.9 % (0-4.5); HEMATOCRIT 24.5 % (32.4-45.2); HEMOGLOBIN 7.9 GM/dL (10.7-15.3); LYMPH % 43.6 % (8-40); MCH 27.9 pg (25.7-33.7); MCHC 32.2 g/dl (32.0-36.0); MEAN CELL VOLUME 86.6 fl (80-96); MEAN PLT VOLUME 8.1 fl (7.5-11.1); MONO % 10.4 % (3.8-10.2); NEUT % 43.8 % (42.8-82.8); PLATELET COUNT 205 K/MM3 (134-434); RBC 2.83 M/mm3 (3.60-5.2); RDW 19.1 % (11.6-15.6); WHITE BLOOD COUNT 2.5 K/mm3 (4.0-10.0)
[2020-11-06 09:37] LABS: BILIRUBIN,TOTAL 0.2 mg/dL (0.2-1); CREATININE 0.7 mg/dL (0.55-1.3)
[2020-11-06 09:44] LABS: BLOOD UREA NITROGEN 19.1 mg/dL (7-18)
[2020-11-06 09:47] LABS: CALCIUM 9.6 mg/dL (8.5-10.1)
[2020-11-06] MEDS: VALSARTAN 80 MG TABLET PO SCH (10:06)
[2020-11-06] MEDS: ENOXAPARIN NA (PORCINE) 40 MG/0.4 ML DISP.SYRIN SQ SCH (10:07)
[2020-11-06 11:28] LABS: ANISOCYTOSIS 1+; MACROCYTOSIS 0; OVALOCYTE 2+; PLATELET ESTIMATE NORMAL; TEAR DROP CELLS 1+
[2020-11-06 16:05] VITALS: BMI 23.1
[2020-11-06 19:08] LABS: FREE KAPPA,SERUM 218.8 mg/L (3.3-19.4)
[2020-11-06] MEDS: ROSUVASTATIN CA 10 MG TABLET (FP) PO SCH (22:17)
[2020-11-07] MEDS: metFORMIN HCL 500 MG TABLET (FP) PO SCH ×2 (06:20→18:58)
[2020-11-07] MEDS: INSULIN SLIDING SCALE (NOVOLOG) 1 VIAL SQ SCH ×4 (06:20→21:26)
[2020-11-07] MEDS: ACETAMINOPHEN 325 MG TABLET (FP) PO PRN ×2 (08:14→15:24)
[2020-11-07] MEDS: VALSARTAN 80 MG TABLET PO SCH (12:15)
[2020-11-07] MEDS: ENOXAPARIN NA (PORCINE) 40 MG/0.4 ML DISP.SYRIN SQ SCH (12:15)
[2020-11-07] MEDS: LIDOCAINE 5% TOPICAL PATCH TP SCH (18:57)
[2020-11-07] MEDS: ROSUVASTATIN CA 10 MG TABLET (FP) PO SCH (21:26)
[2020-11-08] MEDS: ONDANSETRON 4 MG/2 ML VIAL IVPUSH PRN (05:50)
[2020-11-08] MEDS: LIDOCAINE PATCH REMOVAL MC SCH ×2 (05:50→12:25)
[2020-11-08] MEDS: INSULIN SLIDING SCALE (NOVOLOG) 1 VIAL SQ SCH ×4 (06:38→21:14)
[2020-11-08] MEDS: ACETAMINOPHEN 325 MG TABLET (FP) PO PRN ×2 (06:41→18:02)
[2020-11-08] MEDS: metFORMIN HCL 500 MG TABLET (FP) PO SCH ×2 (06:45→19:24)
[2020-11-08] MEDS ORDERED: PT OWN MED DRAWER 7, Y5N ONE (08:52)
[2020-11-08] MEDS: VALSARTAN 80 MG TABLET PO SCH (09:09)
[2020-11-08] MEDS: ENOXAPARIN NA (PORCINE) 40 MG/0.4 ML DISP.SYRIN SQ SCH (09:12)
[2020-11-08 10:52] LABS: BASO % 0.3 % (0-2.0); EOS % 1.2 % (0-4.5); HEMATOCRIT 27.9 % (32.4-45.2); HEMOGLOBIN 9.1 GM/dL (10.7-15.3); LYMPH % 34.7 % (8-40); MCH 27.9 pg (25.7-33.7); MCHC 32.6 g/dl (32.0-36.0); MEAN CELL VOLUME 85.8 fl (80-96); MEAN PLT VOLUME 8.5 fl (7.5-11.1); MONO % 7.9 % (3.8-10.2); NEUT % 55.9 % (42.8-82.8); PLATELET COUNT 202 K/MM3 (134-434); RBC 3.25 M/mm3 (3.60-5.2); RDW 17.9 % (11.6-15.6)
[2020-11-08 11:18] LABS: CALCIUM 10.5 mg/dL (8.5-10.1)
[2020-11-08 11:19] LABS: ALBUMIN 3.2 g/dl (3.4-5.0); BLOOD UREA NITROGEN 17.6 mg/dL (7-18)
[2020-11-08 11:22] LABS: CREATININE 0.8 mg/dL (0.55-1.3)
[2020-11-08 11:23] LABS: BILIRUBIN,TOTAL 0.6 mg/dL (0.2-1); TOT PROT 10.4 g/dl (6.4-8.2)
[2020-11-08 11:55] LABS: PLATELET ESTIMATE NORMAL
[2020-11-08] MEDS: LIDOCAINE 5% TOPICAL PATCH TP SCH (16:36)
[2020-11-08] MEDS: ROSUVASTATIN CA 10 MG TABLET (FP) PO SCH (21:14)
[2020-11-09] MEDS: ACETAMINOPHEN 325 MG TABLET (FP) PO PRN ×2 (06:06→12:02)
[2020-11-09] MEDS: metFORMIN HCL 500 MG TABLET (FP) PO SCH ×2 (06:27→16:49)
[2020-11-09] MEDS: INSULIN SLIDING SCALE (NOVOLOG) 1 VIAL SQ SCH ×4 (06:27→22:23)
[2020-11-09] MEDS: VALSARTAN 80 MG TABLET PO SCH (09:15)
[2020-11-09] MEDS: ENOXAPARIN NA (PORCINE) 40 MG/0.4 ML DISP.SYRIN SQ SCH (09:16)
[2020-11-09] MEDS: LIDOCAINE PATCH REMOVAL MC SCH (09:16)
[2020-11-09 09:42] LABS: BASO % 0.2 % (0-2.0); EOS % 1.9 % (0-4.5); HEMATOCRIT 26.7 % (32.4-45.2); HEMOGLOBIN 8.8 GM/dL (10.7-15.3); LYMPH % 44.7 % (8-40); MCH 28.2 pg (25.7-33.7); MCHC 33.2 g/dl (32.0-36.0); MEAN CELL VOLUME 85.1 fl (80-96); MEAN PLT VOLUME 8.5 fl (7.5-11.1); MONO % 9.1 % (3.8-10.2); NEUT % 44.1 % (42.8-82.8); PLATELET COUNT 194 K/MM3 (134-434); RBC 3.13 M/mm3 (3.60-5.2); RDW 17.9 % (11.6-15.6); WHITE BLOOD COUNT 3.4 K/mm3 (4.0-10.0)
[2020-11-09 10:10] LABS: ALBUMIN 2.9 g/dl (3.4-5.0); BLOOD UREA NITROGEN 16.4 mg/dL (7-18); CALCIUM 9.8 mg/dL (8.5-10.1)
[2020-11-09 10:13] LABS: CREATININE 0.6 mg/dL (0.55-1.3)
[2020-11-09 10:14] LABS: BILIRUBIN,TOTAL 0.2 mg/dL (0.2-1); TOT PROT 9.8 g/dl (6.4-8.2)
[2020-11-09 12:20] LABS: ANISOCYTOSIS 0; MACROCYTOSIS 0; PLATELET ESTIMATE NORMAL; ROULEAU 1+
[2020-11-09] MEDS: LIDOCAINE 5% TOPICAL PATCH TP SCH (16:49)
[2020-11-09] MEDS: GABAPENTIN 100 MG CAPSULE PO SCH (22:23)
[2020-11-09] MEDS: ROSUVASTATIN CA 10 MG TABLET (FP) PO SCH (22:23)
[2020-11-09] MEDS: ACETAMINOPHEN 500 MG TABLET (FP) PO SCH (22:24)
[2020-11-10] MEDS: ACETAMINOPHEN 500 MG TABLET (FP) PO SCH ×4 (06:42→23:00)
[2020-11-10] MEDS: GABAPENTIN 100 MG CAPSULE PO SCH ×3 (06:42→22:26)
[2020-11-10] MEDS: metFORMIN HCL 500 MG TABLET (FP) PO SCH ×2 (06:44→17:33)
[2020-11-10] MEDS: INSULIN SLIDING SCALE (NOVOLOG) 1 VIAL SQ SCH ×4 (06:44→22:18)
[2020-11-10 09:19] LABS: BASO % 0.4 % (0-2.0); EOS % 1.7 % (0-4.5); HEMATOCRIT 27.7 % (32.4-45.2); HEMOGLOBIN 9.1 GM/dL (10.7-15.3); LYMPH % 41.9 % (8-40); MCH 28.1 pg (25.7-33.7); MCHC 32.8 g/dl (32.0-36.0); MEAN CELL VOLUME 85.9 fl (80-96); MEAN PLT VOLUME 8.4 fl (7.5-11.1); PLATELET COUNT 184 K/MM3 (134-434); RBC 3.23 M/mm3 (3.60-5.2); RDW 17.6 % (11.6-15.6)
[2020-11-10] MEDS ORDERED: PT OWN MED DRAWER 7, Y5N ONE (10:07)
[2020-11-10 10:11] LABS: ALBUMIN 3.2 g/dl (3.4-5.0); BLOOD UREA NITROGEN 14.3 mg/dL (7-18)
[2020-11-10 10:14] LABS: CREATININE 0.7 mg/dL (0.55-1.3)
[2020-11-10 10:16] LABS: BILIRUBIN,TOTAL 0.5 mg/dL (0.2-1); TOT PROT 10.2 g/dl (6.4-8.2)
[2020-11-10] MEDS: ENOXAPARIN NA (PORCINE) 40 MG/0.4 ML DISP.SYRIN SQ SCH (10:17)
[2020-11-10] MEDS: VALSARTAN 80 MG TABLET PO SCH (10:17)
[2020-11-10] MEDS: LIDOCAINE PATCH REMOVAL MC SCH (10:31)
[2020-11-10] MEDS: ONDANSETRON 4 MG/2 ML VIAL IVPUSH PRN (10:37)
[2020-11-10 13:38] LABS: ANISOCYTOSIS 2+; MACROCYTOSIS 1+; OVALOCYTE 1+; PLATELET ESTIMATE NORMAL; TEAR DROP CELLS 2+
[2020-11-10] MEDS: LIDOCAINE 5% TOPICAL PATCH TP SCH (17:22)
[2020-11-10] MEDS: ROSUVASTATIN CA 10 MG TABLET (FP) PO SCH (22:26)
[2020-11-11] MEDS: GABAPENTIN 100 MG CAPSULE PO SCH ×3 (05:56→22:53)
[2020-11-11] MEDS: ACETAMINOPHEN 500 MG TABLET (FP) PO SCH ×3 (05:56→22:53)
[2020-11-11] MEDS: ONDANSETRON 4 MG/2 ML VIAL IVPUSH PRN (05:56)
[2020-11-11] MEDS: metFORMIN HCL 500 MG TABLET (FP) PO SCH ×2 (06:28→16:52)
[2020-11-11] MEDS: INSULIN SLIDING SCALE (NOVOLOG) 1 VIAL SQ SCH ×4 (06:29→22:52)
[2020-11-11 07:12] LABS: SARS-CoV-2 NAA Not Detected (Not Detected)
[2020-11-11] MEDS: LIDOCAINE PATCH REMOVAL MC SCH (09:24)
[2020-11-11] MEDS: VALSARTAN 80 MG TABLET PO SCH (09:24)
[2020-11-11] MEDS: LIDOCAINE 5% TOPICAL PATCH TP SCH (17:00)
[2020-11-11 17:07] LABS: VON WILLEBRAND ANTIGEN 121 % (50-200)
[2020-11-11] MEDS ORDERED: HEPARIN NA (PORCINE) 5,000 UNITS/ML 1ML VIAL SQ SCH (22:00)
[2020-11-11] MEDS: ROSUVASTATIN CA 10 MG TABLET (FP) PO SCH (22:54)
[2020-11-12] MEDS: metFORMIN HCL 500 MG TABLET (FP) PO SCH ×2 (06:02→17:09)
[2020-11-12] MEDS: ACETAMINOPHEN 500 MG TABLET (FP) PO SCH ×3 (06:02→21:22)
[2020-11-12] MEDS: GABAPENTIN 100 MG CAPSULE PO SCH ×3 (06:02→21:23)
[2020-11-12] MEDS: INSULIN SLIDING SCALE (NOVOLOG) 1 VIAL SQ SCH ×4 (06:02→21:19)
[2020-11-12 08:42] LABS: BASO % 0.5 % (0-2.0); EOS % 1.8 % (0-4.5); HEMATOCRIT 26.5 % (32.4-45.2); HEMOGLOBIN 8.8 GM/dL (10.7-15.3); LYMPH % 44.6 % (8-40); MCH 28.6 pg (25.7-33.7); MCHC 33.1 g/dl (32.0-36.0); MEAN CELL VOLUME 86.4 fl (80-96); MEAN PLT VOLUME 8.8 fl (7.5-11.1); MONO % 11.6 % (3.8-10.2); NEUT % 41.5 % (42.8-82.8); PLATELET COUNT 173 K/MM3 (134-434); RBC 3.07 M/mm3 (3.60-5.2); RDW 17.6 % (11.6-15.6); WHITE BLOOD COUNT 2.9 K/mm3 (4.0-10.0)
[2020-11-12 08:52] LABS: INR 1.01 (0.83-1.09); PROTHROMBIN TIME (PATIENT) 12.2 SEC (9.7-13.0)
[2020-11-12 08:55] LABS: ACTIVATED PTT 28.8 SECONDS (25.2-36.5); CHLORIDE 106 mmol/L (98-107); SODIUM 139 mmol/L (136-145)
[2020-11-12 08:59] LABS: ANION GAP 5 MMOL/L (8-16); BLOOD UREA NITROGEN 19.2 mg/dL (7-18); CO2 28 mmol/L (21-32)
[2020-11-12 09:00] LABS: GLUCOSE,RANDOM 87 mg/dL (74-106)
[2020-11-12 09:03] LABS: CREATININE 0.6 mg/dL (0.55-1.3); SGOT/AST 11 U/L (15-37); SGPT/ALT 16 U/L (13-61)
[2020-11-12 09:04] LABS: BILIRUBIN,TOTAL 0.4 mg/dL (0.2-1); TOT PROT 9.9 g/dl (6.4-8.2)
[2020-11-12 09:06] LABS: ALK PHOS 52 U/L (45-117)
[2020-11-12] MEDS: LIDOCAINE PATCH REMOVAL MC SCH (10:26)
[2020-11-12] MEDS: VALSARTAN 80 MG TABLET PO SCH (11:30)
[2020-11-12 12:28] LABS: ANISOCYTOSIS 1+; MACROCYTOSIS 0; OVALOCYTE 1+; PLATELET ESTIMATE NORMAL
[2020-11-12] MEDS ORDERED: SODIUM CHLORIDE 500 ML IV ONE (14:00)
[2020-11-12] MEDS: LIDOCAINE 5% TOPICAL PATCH TP SCH (17:11)
[2020-11-12] MEDS: ROSUVASTATIN CA 10 MG TABLET (FP) PO SCH (21:22)
[2020-11-13] MEDS: metFORMIN HCL 500 MG TABLET (FP) PO SCH ×2 (06:15→17:33)
[2020-11-13] MEDS: GABAPENTIN 100 MG CAPSULE PO SCH ×3 (06:15→21:16)
[2020-11-13] MEDS: ACETAMINOPHEN 500 MG TABLET (FP) PO SCH ×3 (06:15→21:16)
[2020-11-13] MEDS: INSULIN SLIDING SCALE (NOVOLOG) 1 VIAL SQ SCH ×4 (06:16→21:17)
[2020-11-13] MEDS: VALSARTAN 80 MG TABLET PO SCH (09:23)
[2020-11-13] MEDS: ACETAMINOPHEN 325 MG TABLET (FP) PO PRN (09:41)
[2020-11-13] MEDS: LIDOCAINE PATCH REMOVAL MC SCH (09:42)
[2020-11-13] MEDS: LIDOCAINE 5% TOPICAL PATCH TP SCH (17:33)
[2020-11-13] MEDS: ROSUVASTATIN CA 10 MG TABLET (FP) PO SCH (21:17)
[2020-11-13] MEDS: ENOXAPARIN NA (PORCINE) 40 MG/0.4 ML DISP.SYRIN SQ SCH (21:54)
[2020-11-14] MEDS: INSULIN SLIDING SCALE (NOVOLOG) 1 VIAL SQ SCH ×4 (06:25→21:29)
[2020-11-14] MEDS: ACETAMINOPHEN 500 MG TABLET (FP) PO SCH ×3 (06:26→21:34)
[2020-11-14] MEDS: metFORMIN HCL 500 MG TABLET (FP) PO SCH ×2 (06:26→16:39)
[2020-11-14] MEDS: GABAPENTIN 100 MG CAPSULE PO SCH ×3 (06:26→21:35)
[2020-11-14 09:31] LABS: BASO % 0.2 % (0-2.0); HEMATOCRIT 26.8 % (32.4-45.2); HEMOGLOBIN 8.9 GM/dL (10.7-15.3); LYMPH % 39.7 % (8-40); MCH 28.5 pg (25.7-33.7); MEAN CELL VOLUME 86.3 fl (80-96); MEAN PLT VOLUME 8.9 fl (7.5-11.1); MONO % 7.4 % (3.8-10.2); NEUT % 51.7 % (42.8-82.8); PLATELET COUNT 168 K/MM3 (134-434); RBC 3.11 M/mm3 (3.60-5.2); RDW 17.3 % (11.6-15.6); WHITE BLOOD COUNT 3.8 K/mm3 (4.0-10.0)
[2020-11-14] MEDS: ENOXAPARIN NA (PORCINE) 40 MG/0.4 ML DISP.SYRIN SQ SCH (09:37)
[2020-11-14] MEDS: VALSARTAN 80 MG TABLET PO SCH (09:37)
[2020-11-14] MEDS: LIDOCAINE PATCH REMOVAL MC SCH (09:42)
[2020-11-14 10:08] LABS: CALCIUM 9.7 mg/dL (8.5-10.1)
[2020-11-14 10:09] LABS: ALBUMIN 3.2 g/dl (3.4-5.0); BLOOD UREA NITROGEN 16.9 mg/dL (7-18)
[2020-11-14 10:12] LABS: CREATININE 0.7 mg/dL (0.55-1.3)
[2020-11-14 10:13] LABS: BILIRUBIN,TOTAL 0.2 mg/dL (0.2-1)
[2020-11-14 10:14] LABS: TOT PROT 10.5 g/dl (6.4-8.2)
[2020-11-14] MEDS: LIDOCAINE 5% TOPICAL PATCH TP SCH (16:38)
[2020-11-14] MEDS: ROSUVASTATIN CA 10 MG TABLET (FP) PO SCH (21:35)
[2020-11-15] MEDS: ACETAMINOPHEN 500 MG TABLET (FP) PO SCH ×3 (05:37→21:35)
[2020-11-15] MEDS: GABAPENTIN 100 MG CAPSULE PO SCH ×3 (05:37→21:35)
[2020-11-15] MEDS: INSULIN SLIDING SCALE (NOVOLOG) 1 VIAL SQ SCH ×4 (06:37→21:21)
[2020-11-15] MEDS: metFORMIN HCL 500 MG TABLET (FP) PO SCH ×2 (06:37→17:16)
[2020-11-15] MEDS: VALSARTAN 80 MG TABLET PO SCH (10:02)
[2020-11-15] MEDS: ENOXAPARIN NA (PORCINE) 40 MG/0.4 ML DISP.SYRIN SQ SCH (10:02)
[2020-11-15] MEDS: LIDOCAINE PATCH REMOVAL MC SCH (10:03)
[2020-11-15] MEDS: POLYETHYLENE GLYCOL 3350 119 GM BTL PO SCH (17:10)
[2020-11-15] MEDS: LIDOCAINE 5% TOPICAL PATCH TP SCH (17:11)
[2020-11-15] MEDS: ROSUVASTATIN CA 10 MG TABLET (FP) PO SCH (21:35)
[2020-11-15] MEDS: DOCUSATE SODIUM 100 MG CAPSULE (FP) PO SCH (21:35)
[2020-11-16] MEDS: ACETAMINOPHEN 500 MG TABLET (FP) PO SCH ×3 (06:17→21:36)
[2020-11-16] MEDS: GABAPENTIN 100 MG CAPSULE PO SCH ×3 (06:17→21:36)
[2020-11-16] MEDS: INSULIN SLIDING SCALE (NOVOLOG) 1 VIAL SQ SCH ×4 (06:18→21:36)
[2020-11-16] MEDS: metFORMIN HCL 500 MG TABLET (FP) PO SCH ×2 (06:18→18:07)
[2020-11-16 09:03] LABS: BASO % 0.2 % (0-2.0); EOS % 0.9 % (0-4.5); HEMATOCRIT 25.3 % (32.4-45.2); HEMOGLOBIN 8.5 GM/dL (10.7-15.3); LYMPH % 24.7 % (8-40); MCH 28.9 pg (25.7-33.7); MCHC 33.6 g/dl (32.0-36.0); MEAN PLT VOLUME 9.1 fl (7.5-11.1); MONO % 8.2 % (3.8-10.2); PLATELET COUNT 153 K/MM3 (134-434); RBC 2.95 M/mm3 (3.60-5.2); RDW 17.4 % (11.6-15.6); WHITE BLOOD COUNT 4.9 K/mm3 (4.0-10.0)
[2020-11-16 09:31] LABS: CALCIUM 10.3 mg/dL (8.5-10.1)
[2020-11-16 09:32] LABS: ALBUMIN 3.1 g/dl (3.4-5.0); BLOOD UREA NITROGEN 14.4 mg/dL (7-18)
[2020-11-16 09:35] LABS: CREATININE 0.7 mg/dL (0.55-1.3)
[2020-11-16 09:36] LABS: BILIRUBIN,TOTAL 0.3 mg/dL (0.2-1)
[2020-11-16 09:37] LABS: TOT PROT 10.2 g/dl (6.4-8.2)
[2020-11-16] MEDS: LIDOCAINE PATCH REMOVAL MC SCH (09:44)
[2020-11-16] MEDS: ENOXAPARIN NA (PORCINE) 40 MG/0.4 ML DISP.SYRIN SQ SCH (09:44)
[2020-11-16] MEDS: POLYETHYLENE GLYCOL 3350 119 GM BTL PO SCH (09:44)
[2020-11-16] MEDS: VALSARTAN 80 MG TABLET PO SCH (09:44)
[2020-11-16] MEDS: LIDOCAINE 5% TOPICAL PATCH TP SCH (17:39)
[2020-11-16] MEDS: DOCUSATE SODIUM 100 MG CAPSULE (FP) PO SCH (21:35)
[2020-11-16] MEDS: ROSUVASTATIN CA 10 MG TABLET (FP) PO SCH (21:36)
[2020-11-17] MEDS: ACETAMINOPHEN 500 MG TABLET (FP) PO SCH ×3 (05:31→21:12)
[2020-11-17] MEDS: GABAPENTIN 100 MG CAPSULE PO SCH ×3 (05:31→21:11)
[2020-11-17] MEDS: INSULIN SLIDING SCALE (NOVOLOG) 1 VIAL SQ SCH ×4 (06:22→21:12)
[2020-11-17] MEDS: metFORMIN HCL 500 MG TABLET (FP) PO SCH ×2 (06:23→17:46)
[2020-11-17] MEDS: LIDOCAINE PATCH REMOVAL MC SCH (09:33)
[2020-11-17] MEDS: ENOXAPARIN NA (PORCINE) 40 MG/0.4 ML DISP.SYRIN SQ SCH (09:33)
[2020-11-17] MEDS: VALSARTAN 80 MG TABLET PO SCH (09:33)
[2020-11-17 14:10] LABS: HEMOGLOBIN 8.6 GM/dL (10.7-15.3); MCH 28.5 pg (25.7-33.7); MCHC 33.1 g/dl (32.0-36.0); MEAN CELL VOLUME 85.9 fl (80-96); MEAN PLT VOLUME 9.4 fl (7.5-11.1); PLATELET COUNT 174 K/MM3 (134-434); RBC 3.02 M/mm3 (3.60-5.2); RDW 17.2 % (11.6-15.6); WHITE BLOOD COUNT 4.5 K/mm3 (4.0-10.0)
[2020-11-17] MEDS: POLYETHYLENE GLYCOL 3350 119 GM BTL PO SCH (14:12)
[2020-11-17] MEDS: LIDOCAINE 5% TOPICAL PATCH TP SCH (15:58)
[2020-11-17] MEDS: DOCUSATE SODIUM 100 MG CAPSULE (FP) PO SCH (21:11)
[2020-11-17] MEDS: ROSUVASTATIN CA 10 MG TABLET (FP) PO SCH (21:11)
[2020-11-18] MEDS: ACETAMINOPHEN 500 MG TABLET (FP) PO SCH ×3 (06:02→21:08)
[2020-11-18] MEDS: GABAPENTIN 100 MG CAPSULE PO SCH ×3 (06:02→21:08)
[2020-11-18] MEDS: INSULIN SLIDING SCALE (NOVOLOG) 1 VIAL SQ SCH ×4 (06:10→21:08)
[2020-11-18] MEDS: metFORMIN HCL 500 MG TABLET (FP) PO SCH ×2 (06:10→17:22)
[2020-11-18] MEDS: VALSARTAN 80 MG TABLET PO SCH (10:09)
[2020-11-18] MEDS: ENOXAPARIN NA (PORCINE) 40 MG/0.4 ML DISP.SYRIN SQ SCH (10:09)
[2020-11-18] MEDS: POLYETHYLENE GLYCOL 3350 119 GM BTL PO SCH (10:09)
[2020-11-18] MEDS: LIDOCAINE PATCH REMOVAL MC SCH (10:09)
[2020-11-18] MEDS: LIDOCAINE 5% TOPICAL PATCH TP SCH (17:18)
[2020-11-18] MEDS: DOCUSATE SODIUM 100 MG CAPSULE (FP) PO SCH (21:07)
[2020-11-18] MEDS: ROSUVASTATIN CA 10 MG TABLET (FP) PO SCH (21:08)
[2020-11-19] MEDS: ACETAMINOPHEN 500 MG TABLET (FP) PO SCH ×3 (05:53→21:26)
[2020-11-19] MEDS: GABAPENTIN 100 MG CAPSULE PO SCH ×3 (05:53→21:26)
[2020-11-19] MEDS: INSULIN SLIDING SCALE (NOVOLOG) 1 VIAL SQ SCH ×4 (06:07→21:31)
[2020-11-19] MEDS: metFORMIN HCL 500 MG TABLET (FP) PO SCH ×2 (06:07→18:24)
[2020-11-19] MEDS: ENOXAPARIN NA (PORCINE) 40 MG/0.4 ML DISP.SYRIN SQ SCH (09:34)
[2020-11-19] MEDS: LIDOCAINE 5% TOPICAL PATCH TP SCH ×3 (09:34→21:30)
[2020-11-19] MEDS: VALSARTAN 80 MG TABLET PO SCH (09:35)
[2020-11-19] MEDS: POLYETHYLENE GLYCOL 3350 119 GM BTL PO SCH (09:37)
[2020-11-19] MEDS: LIDOCAINE PATCH REMOVAL MC SCH (11:22)
[2020-11-19] MEDS ORDERED: INSULIN (NOVOLOG) ASPART 100 UNITS/ML 10ML VIAL ONE (19:00)
[2020-11-19] MEDS: DOCUSATE SODIUM 100 MG CAPSULE (FP) PO SCH (21:26)
[2020-11-19] MEDS: ROSUVASTATIN CA 10 MG TABLET (FP) PO SCH (21:26)
[2020-11-20] MEDS: GABAPENTIN 100 MG CAPSULE PO SCH ×3 (06:06→22:04)
[2020-11-20] MEDS: ACETAMINOPHEN 500 MG TABLET (FP) PO SCH ×2 (06:07→13:29)
[2020-11-20] MEDS: metFORMIN HCL 500 MG TABLET (FP) PO SCH ×2 (06:08→17:39)
[2020-11-20] MEDS: INSULIN SLIDING SCALE (NOVOLOG) 1 VIAL SQ SCH ×4 (06:12→22:05)
[2020-11-20] MEDS ORDERED: LIDOCAINE PATCH REMOVAL MC SCH (07:52)
[2020-11-20] MEDS: VALSARTAN 80 MG TABLET PO SCH (10:04)
[2020-11-20] MEDS: LIDOCAINE 5% TOPICAL PATCH TP SCH (10:10)
[2020-11-20] MEDS: POLYETHYLENE GLYCOL 3350 119 GM BTL PO SCH (10:11)
[2020-11-20] MEDS: ENOXAPARIN NA (PORCINE) 40 MG/0.4 ML DISP.SYRIN SQ SCH (10:11)
[2020-11-20] MEDS: ROSUVASTATIN CA 10 MG TABLET (FP) PO SCH (22:04)
[2020-11-20] MEDS: LIDOCAINE PATCH REMOVAL MC SCH (22:05)
[2020-11-20] MEDS: DOCUSATE SODIUM 100 MG CAPSULE (FP) PO SCH (22:05)
[2020-11-21] MEDS: INSULIN SLIDING SCALE (NOVOLOG) 1 VIAL SQ SCH ×4 (06:13→21:38)
[2020-11-21] MEDS: metFORMIN HCL 500 MG TABLET (FP) PO SCH ×2 (06:13→17:27)
[2020-11-21] MEDS: GABAPENTIN 100 MG CAPSULE PO SCH ×3 (06:14→21:41)
[2020-11-21] MEDS: VALSARTAN 80 MG TABLET PO SCH (10:09)
[2020-11-21] MEDS: LIDOCAINE 5% TOPICAL PATCH TP SCH (10:09)
[2020-11-21] MEDS: POLYETHYLENE GLYCOL 3350 119 GM BTL PO SCH (10:10)
[2020-11-21] MEDS: DOCUSATE SODIUM 100 MG CAPSULE (FP) PO SCH (21:41)
[2020-11-21] MEDS: LIDOCAINE PATCH REMOVAL MC SCH (21:41)
[2020-11-21] MEDS: ROSUVASTATIN CA 10 MG TABLET (FP) PO SCH (21:41)
[2020-11-22] MEDS: GABAPENTIN 100 MG CAPSULE PO SCH ×3 (06:09→21:51)
[2020-11-22] MEDS: metFORMIN HCL 500 MG TABLET (FP) PO SCH ×2 (06:09→16:36)
[2020-11-22] MEDS: INSULIN SLIDING SCALE (NOVOLOG) 1 VIAL SQ SCH ×4 (06:39→21:52)
[2020-11-22 08:21] LABS: BASO % 0.4 % (0-2.0); EOS % 1.3 % (0-4.5); HEMATOCRIT 17.4 % (32.4-45.2); LYMPH % 38.5 % (8-40); MCH 28.4 pg (25.7-33.7); MCHC 32.6 g/dl (32.0-36.0); MEAN CELL VOLUME 87.3 fl (80-96); MEAN PLT VOLUME 8.6 fl (7.5-11.1); MONO % 11.8 % (3.8-10.2); PLATELET COUNT 205 K/MM3 (134-434); RDW 16.9 % (11.6-15.6); WHITE BLOOD COUNT 4.4 K/mm3 (4.0-10.0)
[2020-11-22 08:39] LABS: HEMOGLOBIN 5.7 GM/dL (10.7-15.3)
[2020-11-22 09:20] LABS: BLOOD UREA NITROGEN 22.3 mg/dL (7-18); CALCIUM 10.3 mg/dL (8.5-10.1)
[2020-11-22 09:24] LABS: CREATININE 0.7 mg/dL (0.55-1.3)
[2020-11-22 09:25] LABS: BILIRUBIN,TOTAL 0.2 mg/dL (0.2-1); TOT PROT 10.1 g/dl (6.4-8.2)
[2020-11-22] MEDS: POLYETHYLENE GLYCOL 3350 119 GM BTL PO SCH (09:25)
[2020-11-22] MEDS: VALSARTAN 80 MG TABLET PO SCH (09:25)
[2020-11-22] MEDS: LIDOCAINE 5% TOPICAL PATCH TP SCH (09:25)
[2020-11-22 11:32] LABS: PLATELET ESTIMATE NORMAL
[2020-11-22] MEDS: CODEINE SO4 30 MG TABLET PO PRN (16:49)
[2020-11-22] MEDS: DOCUSATE SODIUM 100 MG CAPSULE (FP) PO SCH (21:50)
[2020-11-22] MEDS: ROSUVASTATIN CA 10 MG TABLET (FP) PO SCH (21:51)
[2020-11-22] MEDS: LIDOCAINE PATCH REMOVAL MC SCH (21:51)
[2020-11-23] MEDS: metFORMIN HCL 500 MG TABLET (FP) PO SCH ×2 (06:51→16:48)
[2020-11-23] MEDS: GABAPENTIN 100 MG CAPSULE PO SCH ×3 (06:51→22:21)
[2020-11-23] MEDS: INSULIN SLIDING SCALE (NOVOLOG) 1 VIAL SQ SCH ×4 (06:51→22:22)
[2020-11-23 08:25] LABS: BASO % 0.4 % (0-2.0); HEMATOCRIT 31.3 % (32.4-45.2); HEMOGLOBIN 10.5 GM/dL (10.7-15.3); MCH 28.6 pg (25.7-33.7); MCHC 33.5 g/dl (32.0-36.0); MEAN CELL VOLUME 85.2 fl (80-96); MEAN PLT VOLUME 8.9 fl (7.5-11.1); MONO % 11.3 % (3.8-10.2); NEUT % 47.3 % (42.8-82.8); PLATELET COUNT 203 K/MM3 (134-434); RBC 3.67 M/mm3 (3.60-5.2); RDW 15.6 % (11.6-15.6); WHITE BLOOD COUNT 3.4 K/mm3 (4.0-10.0)
[2020-11-23 08:48] LABS: BLOOD UREA NITROGEN 20.8 mg/dL (7-18); CALCIUM 10.3 mg/dL (8.5-10.1)
[2020-11-23 08:51] LABS: CREATININE 0.7 mg/dL (0.55-1.3)
[2020-11-23 08:53] LABS: BILIRUBIN,TOTAL 0.2 mg/dL (0.2-1); TOT PROT 10.2 g/dl (6.4-8.2)
[2020-11-23] MEDS: POLYETHYLENE GLYCOL 3350 119 GM BTL PO SCH (09:18)
[2020-11-23] MEDS: LIDOCAINE 5% TOPICAL PATCH TP SCH (09:23)
[2020-11-23] MEDS: VALSARTAN 80 MG TABLET PO SCH (09:23)
[2020-11-23 10:13] LABS: ANISOCYTOSIS 0; MACROCYTOSIS 0; PLATELET ESTIMATE NORMAL; ROULEAU 1+
[2020-11-23] MEDS: CODEINE SO4 30 MG TABLET PO PRN (19:22)
[2020-11-23] MEDS ORDERED: INSULIN (LEVEMIR) 100 UNITS/ML UNITS SQ ONE (21:00)
[2020-11-23] MEDS: ACETAMINOPHEN 325 MG TABLET (FP) PO PRN (22:19)
[2020-11-23] MEDS: DOCUSATE SODIUM 100 MG CAPSULE (FP) PO SCH (22:21)
[2020-11-23] MEDS: LIDOCAINE PATCH REMOVAL MC SCH (22:22)
[2020-11-23] MEDS: ROSUVASTATIN CA 10 MG TABLET (FP) PO SCH (22:22)
[2020-11-24] MEDS: GABAPENTIN 100 MG CAPSULE PO SCH ×3 (06:30→21:03)
[2020-11-24] MEDS: metFORMIN HCL 500 MG TABLET (FP) PO SCH ×2 (06:34→16:06)
[2020-11-24] MEDS: INSULIN SLIDING SCALE (NOVOLOG) 1 VIAL SQ SCH ×4 (06:34→21:03)
[2020-11-24 08:44] LABS: BASO % 0.2 % (0-2.0); EOS % 2.1 % (0-4.5); HEMATOCRIT 31.7 % (32.4-45.2); HEMOGLOBIN 10.6 GM/dL (10.7-15.3); LYMPH % 34.4 % (8-40); MCH 28.9 pg (25.7-33.7); MCHC 33.4 g/dl (32.0-36.0); MEAN CELL VOLUME 86.5 fl (80-96); MEAN PLT VOLUME 8.9 fl (7.5-11.1); MONO % 11.2 % (3.8-10.2); NEUT % 52.1 % (42.8-82.8); PLATELET COUNT 195 K/MM3 (134-434); RBC 3.66 M/mm3 (3.60-5.2); WHITE BLOOD COUNT 3.7 K/mm3 (4.0-10.0)
[2020-11-24] MEDS: VALSARTAN 80 MG TABLET PO SCH (09:14)
[2020-11-24] MEDS: LIDOCAINE 5% TOPICAL PATCH TP SCH (09:15)
[2020-11-24] MEDS: POLYETHYLENE GLYCOL 3350 119 GM BTL PO SCH (09:15)
[2020-11-24 09:17] LABS: BLOOD UREA NITROGEN 24.2 mg/dL (7-18); CALCIUM 10.8 mg/dL (8.5-10.1)
[2020-11-24 09:20] LABS: CREATININE 0.7 mg/dL (0.55-1.3)
[2020-11-24 09:21] LABS: BILIRUBIN,TOTAL 0.2 mg/dL (0.2-1); TOT PROT 10.4 g/dl (6.4-8.2)
[2020-11-24 13:08] LABS: ANISOCYTOSIS 0; MACROCYTOSIS 0; PLATELET ESTIMATE NORMAL
[2020-11-24] MEDS: ROSUVASTATIN CA 10 MG TABLET (FP) PO SCH (21:03)
[2020-11-24] MEDS: DOCUSATE SODIUM 100 MG CAPSULE (FP) PO SCH (21:03)
[2020-11-24] MEDS: LIDOCAINE PATCH REMOVAL MC SCH (21:03)
[2020-11-25] MEDS: ACETAMINOPHEN 325 MG TABLET (FP) PO PRN ×2 (05:36→21:03)
[2020-11-25] MEDS: GABAPENTIN 100 MG CAPSULE PO SCH ×3 (05:36→21:03)
[2020-11-25] MEDS: INSULIN SLIDING SCALE (NOVOLOG) 1 VIAL SQ SCH ×4 (06:17→21:03)
[2020-11-25] MEDS: metFORMIN HCL 500 MG TABLET (FP) PO SCH ×2 (06:17→17:29)
[2020-11-25] MEDS: LIDOCAINE 5% TOPICAL PATCH TP SCH (10:31)
[2020-11-25] MEDS: VALSARTAN 80 MG TABLET PO SCH (10:31)
[2020-11-25] MEDS: POLYETHYLENE GLYCOL 3350 119 GM BTL PO SCH (10:31)
[2020-11-25] MEDS: DOCUSATE SODIUM 100 MG CAPSULE (FP) PO SCH (21:03)
[2020-11-25] MEDS: LIDOCAINE PATCH REMOVAL MC SCH (21:03)
[2020-11-25] MEDS: ROSUVASTATIN CA 10 MG TABLET (FP) PO SCH (21:03)
[2020-11-25 22:08] LABS: EPI CELLS 12 /uL (0-25.1); HYALINE CASTS 0 /uL (0-3.1); URINE APPEARANCE CLEAR; URINE BACTERIA 444 /uL (0-1359); URINE BILIRUBIN NEGATIVE (NEGATIVE); URINE COLOR YELLOW; URINE GLUCOSE (UA) NEGATIVE (NEGATIVE); URINE KETONE NEGATIVE (NEGATIVE); URINE LEUK ESTERASE 1+ (NEGATIVE); URINE NITRITE NEGATIVE (NEGATIVE); URINE PROTEIN NEGATIVE (NEGATIVE); URINE RBC 51 /uL (0-23.9); URINE UROBILINOGEN 0.2 mg/dL (0.2-1.0); URINE WBC 26 /uL (0-25.8)
[2020-11-26] MEDS: INSULIN SLIDING SCALE (NOVOLOG) 1 VIAL SQ SCH ×5 (06:20→22:31)
[2020-11-26] MEDS: GABAPENTIN 300 MG CAPSULE PO SCH ×4 (06:21→22:27)
[2020-11-26] MEDS: metFORMIN HCL 500 MG TABLET (FP) PO SCH ×2 (06:28→17:28)
[2020-11-26] MEDS: VALSARTAN 160 MG TABLET PO SCH (09:37)
[2020-11-26] MEDS: LIDOCAINE 5% TOPICAL PATCH TP SCH (09:38)
[2020-11-26] MEDS: POLYETHYLENE GLYCOL 3350 119 GM BTL PO SCH (09:42)
[2020-11-26] MEDS ORDERED: PANTOPRAZOLE SODIUM 40 MG VIAL IVPB SCH (11:00)
[2020-11-26] MEDS ORDERED: DENOSUMAB 120 MG/1.7 ML VIAL SQ ONE ×2 (11:30→17:30)
[2020-11-26] MEDS ORDERED: PT OWN MED DRAWER 7, Y5N ONE ×3 (17:15→22:53)
[2020-11-26] MEDS: DEXAMETHASONE 4 MG TABLET (FP) PO SCH (17:28)
[2020-11-26] MEDS: PANTOPRAZOLE 40 MG TABLET PO SCH (17:28)
[2020-11-26] MEDS ORDERED: DEXAMETHASONE SOD PHOSPHATE 4 MG/1 ML VIAL IVPB SCH (18:00)
[2020-11-26] MEDS: DOCUSATE SODIUM 100 MG CAPSULE (FP) PO SCH ×2 (22:19→22:31)
[2020-11-26] MEDS: LIDOCAINE PATCH REMOVAL MC SCH (22:19)
[2020-11-26] MEDS: ROSUVASTATIN CA 10 MG TABLET (FP) PO SCH ×2 (22:19→22:31)
[2020-11-26] MEDS: CALCIUM 250MG/VIT-D 125 UNITS 1 COMBO TABLET PO SCH ×2 (22:21→22:32)
[2020-11-27] MEDS: DEXAMETHASONE 4 MG TABLET (FP) PO SCH ×4 (01:36→16:45)
[2020-11-27] MEDS: metFORMIN HCL 500 MG TABLET (FP) PO SCH ×2 (07:20→16:45)
[2020-11-27] MEDS: GABAPENTIN 300 MG CAPSULE PO SCH ×3 (07:20→22:01)
[2020-11-27] MEDS: INSULIN SLIDING SCALE (NOVOLOG) 1 VIAL SQ SCH ×4 (07:20→22:02)
[2020-11-27] MEDS ORDERED: PT OWN MED DRAWER 7, Y5N ONE (10:17)
[2020-11-27] MEDS: PANTOPRAZOLE 40 MG TABLET PO SCH (10:20)
[2020-11-27] MEDS: VALSARTAN 160 MG TABLET PO SCH (10:21)
[2020-11-27] MEDS: LIDOCAINE 5% TOPICAL PATCH TP SCH (10:22)
[2020-11-27] MEDS: CALCIUM 250MG/VIT-D 125 UNITS 1 COMBO TABLET PO SCH ×2 (10:23→22:02)
[2020-11-27] MEDS: POLYETHYLENE GLYCOL 3350 119 GM BTL PO SCH (10:32)
[2020-11-27] MEDS: DOCUSATE SODIUM 100 MG CAPSULE (FP) PO SCH (22:01)
[2020-11-27] MEDS: ROSUVASTATIN CA 10 MG TABLET (FP) PO SCH (22:01)
[2020-11-27] MEDS: LIDOCAINE PATCH REMOVAL MC SCH (22:02)
[2020-11-28] MEDS: DEXAMETHASONE 4 MG TABLET (FP) PO SCH ×3 (00:42→17:08)
[2020-11-28] MEDS: metFORMIN HCL 500 MG TABLET (FP) PO SCH ×2 (06:15→17:08)
[2020-11-28] MEDS: INSULIN SLIDING SCALE (NOVOLOG) 1 VIAL SQ SCH ×4 (06:15→20:59)
[2020-11-28] MEDS: GABAPENTIN 300 MG CAPSULE PO SCH ×3 (06:15→20:59)
[2020-11-28] MEDS ORDERED: PT OWN MED DRAWER 7, Y5N ONE ×2 (09:26→21:45)
[2020-11-28] MEDS: LIDOCAINE 5% TOPICAL PATCH TP SCH (09:27)
[2020-11-28] MEDS: CALCIUM 250MG/VIT-D 125 UNITS 1 COMBO TABLET PO SCH (09:28)
[2020-11-28] MEDS: POLYETHYLENE GLYCOL 3350 119 GM BTL PO SCH (09:28)
[2020-11-28] MEDS: VALSARTAN 160 MG TABLET PO SCH (09:28)
[2020-11-28] MEDS: PANTOPRAZOLE 40 MG TABLET PO SCH (09:28)
[2020-11-28] MEDS: ROSUVASTATIN CA 10 MG TABLET (FP) PO SCH (20:59)
[2020-11-28] MEDS: LIDOCAINE PATCH REMOVAL MC SCH (20:59)
[2020-11-28] MEDS: DOCUSATE SODIUM 100 MG CAPSULE (FP) PO SCH (20:59)
[2020-11-29] MEDS: CALCIUM 250MG/VIT-D 125 UNITS 1 COMBO TABLET PO SCH ×3 (00:58→22:10)
[2020-11-29] MEDS: DEXAMETHASONE 4 MG TABLET (FP) PO SCH ×3 (00:58→17:02)
[2020-11-29] MEDS: GABAPENTIN 300 MG CAPSULE PO SCH ×3 (05:43→22:10)
[2020-11-29] MEDS: ACETAMINOPHEN 325 MG TABLET (FP) PO PRN (05:44)
[2020-11-29] MEDS: metFORMIN HCL 500 MG TABLET (FP) PO SCH ×2 (06:18→17:02)
[2020-11-29] MEDS: INSULIN SLIDING SCALE (NOVOLOG) 1 VIAL SQ SCH ×4 (06:18→22:11)
[2020-11-29] MEDS ORDERED: PT OWN MED DRAWER 7, Y5N ONE ×2 (09:38→22:08)
[2020-11-29] MEDS: PANTOPRAZOLE 40 MG TABLET PO SCH (09:41)
[2020-11-29] MEDS: VALSARTAN 160 MG TABLET PO SCH (09:42)
[2020-11-29] MEDS: LIDOCAINE 5% TOPICAL PATCH TP SCH (09:42)
[2020-11-29] MEDS: POLYETHYLENE GLYCOL 3350 119 GM BTL PO SCH (09:43)
[2020-11-29] MEDS ORDERED: ARTIFICIAL TEARS (POLYVINYL ALCOHOL) OPTH DROPS OU PRN (18:37)
[2020-11-29] MEDS: LIDOCAINE PATCH REMOVAL MC SCH (22:10)
[2020-11-29] MEDS: DOCUSATE SODIUM 100 MG CAPSULE (FP) PO SCH (22:10)
[2020-11-29] MEDS: ROSUVASTATIN CA 10 MG TABLET (FP) PO SCH (22:10)
[2020-11-30] MEDS: DEXAMETHASONE 4 MG TABLET (FP) PO SCH ×3 (02:01→17:44)
[2020-11-30] MEDS: INSULIN SLIDING SCALE (NOVOLOG) 1 VIAL SQ SCH ×4 (06:19→21:48)
[2020-11-30] MEDS: metFORMIN HCL 500 MG TABLET (FP) PO SCH ×2 (06:19→17:44)
[2020-11-30] MEDS: GABAPENTIN 300 MG CAPSULE PO SCH ×3 (06:19→21:47)
[2020-11-30] MEDS ORDERED: INSULIN (NOVOLOG) ASPART 100 UNITS/ML 10ML VIAL ONE ×3 (06:42→21:44)
[2020-11-30 09:04] LABS: BASO % 0.1 % (0-2.0); HEMATOCRIT 31.2 % (32.4-45.2); HEMOGLOBIN 10.4 GM/dL (10.7-15.3); LYMPH % 24.2 % (8-40); MCH 28.2 pg (25.7-33.7); MCHC 33.3 g/dl (32.0-36.0); MEAN CELL VOLUME 84.8 fl (80-96); MEAN PLT VOLUME 8.9 fl (7.5-11.1); MONO % 9.2 % (3.8-10.2); NEUT % 66.5 % (42.8-82.8); PLATELET COUNT 183 K/MM3 (134-434); RBC 3.68 M/mm3 (3.60-5.2); RDW 15.5 % (11.6-15.6); WHITE BLOOD COUNT 5.4 K/mm3 (4.0-10.0)
[2020-11-30 09:12] LABS: ALBUMIN 3.1 g/dl (3.4-5.0); BLOOD UREA NITROGEN 24.9 mg/dL (7-18)
[2020-11-30 09:16] LABS: CREATININE 0.7 mg/dL (0.55-1.3)
[2020-11-30 09:17] LABS: BILIRUBIN,TOTAL 0.4 mg/dL (0.2-1); TOT PROT 10.6 g/dl (6.4-8.2)
[2020-11-30] MEDS: VALSARTAN 160 MG TABLET PO SCH (09:39)
[2020-11-30] MEDS: PANTOPRAZOLE 40 MG TABLET PO SCH (09:39)
[2020-11-30] MEDS: CALCIUM 250MG/VIT-D 125 UNITS 1 COMBO TABLET PO SCH ×2 (09:40→21:50)
[2020-11-30] MEDS: POLYETHYLENE GLYCOL 3350 119 GM BTL PO SCH (09:41)
[2020-11-30] MEDS: LIDOCAINE 5% TOPICAL PATCH TP SCH (09:46)
[2020-11-30] MEDS: ROSUVASTATIN CA 10 MG TABLET (FP) PO SCH (21:47)
[2020-11-30] MEDS: DOCUSATE SODIUM 100 MG CAPSULE (FP) PO SCH (21:47)
[2020-11-30] MEDS: LIDOCAINE PATCH REMOVAL MC SCH (21:47)
[2020-12-01] MEDS: DEXAMETHASONE 4 MG TABLET (FP) PO SCH ×3 (00:58→16:25)
[2020-12-01] MEDS: GABAPENTIN 300 MG CAPSULE PO SCH ×3 (06:59→21:09)
[2020-12-01] MEDS: INSULIN SLIDING SCALE (NOVOLOG) 1 VIAL SQ SCH ×4 (06:59→21:09)
[2020-12-01] MEDS: metFORMIN HCL 500 MG TABLET (FP) PO SCH ×2 (06:59→16:24)
[2020-12-01] MEDS ORDERED: amLODIPine BESYLATE 2.5 MG TABLET (FP) PO SCH (10:00)
[2020-12-01] MEDS: PANTOPRAZOLE 40 MG TABLET PO SCH (10:17)
[2020-12-01] MEDS: VALSARTAN 160 MG TABLET PO SCH (10:18)
[2020-12-01] MEDS: POLYETHYLENE GLYCOL 3350 119 GM BTL PO SCH (10:18)
[2020-12-01] MEDS: LIDOCAINE 5% TOPICAL PATCH TP SCH (10:18)
[2020-12-01] MEDS: CALCIUM 250MG/VIT-D 125 UNITS 1 COMBO TABLET PO SCH ×2 (10:29→21:09)
[2020-12-01 15:33] VITALS: PULSE 82
[2020-12-01] MEDS: ROSUVASTATIN CA 10 MG TABLET (FP) PO SCH (21:09)
[2020-12-01] MEDS: DOCUSATE SODIUM 100 MG CAPSULE (FP) PO SCH (21:09)
[2020-12-01] MEDS: LIDOCAINE PATCH REMOVAL MC SCH (21:10)
[2020-12-01 23:40] VITALS: BP 144/61; TEMP 98.1
== END 2020-12-02 00:03 | DRG 841 ==
LOC: JER 22:24 → INTOOBSV 11-04 01:26 → JERBED 11-04 01:26 → UNDOADMOB 11-04 01:26 → JERBED 11-04 03:02 → J5S 11-04 03:02 → JERBED 11-04 10:23 → J5S 11-04 10:23 → OBSVTOIN 11-13 15:20 → J5S 11-17 19:09
PROVIDERS: ADMIT Internal Medicine; ATTEND Internal Medicine
PROC: 30233N1 Transfusion of Nonautologous Red Blood Cells into Peripheral Vein, Percutaneous Approach (ICD-10-PCS; 2020-11-06)
PROC: 07DR3ZX Extraction of Iliac Bone Marrow, Percutaneous Approach, Diagnostic (ICD-10-PCS; principal; 2020-11-13)
DX: C90.00 Multiple myeloma not having achieved remission (principal); D68.0 Von Willebrand disease; M48.56XA Collapsed vertebra, not elsewhere classified, lumbar region, initial encounter for fracture; M48.54XA Collapsed vertebra, not elsewhere classified, thoracic region, initial encounter for fracture; I10 Essential (primary) hypertension; E78.5 Hyperlipidemia, unspecified; Z79.84 Long term (current) use of oral hypoglycemic drugs; D64.9 Anemia, unspecified; E11.42 Type 2 diabetes mellitus with diabetic polyneuropathy; E04.1 Nontoxic single thyroid nodule
CPT/HCPCS: 20225; 36415; 36430; 70450-TC; 71250-TC; 72125-TC; 72128-TC; 72131-TC; 72147-TC; 72148-TC; 72149-TC; 73523-TC-FY; 74176-TC; 80053; 80061; 81003; 82272; 82310; 82550; 82607; 82728; 82784; 82803; 82962; 83036; 83540; 83550; 83605; 83721; 83735; 83880; 83883; 83970; 84100; 84443; 84484; 85025; 85027; 85045; 85240; 85246; 85247; 85384; 85610; 85730; 86038; 86160; 86225; 86235; 86431; 86780; 86850; 86900; 86901; 86922; 87086; 88300-TC; 88305-TC; 88311-TC; 88313-TC; 93005; 93010; 93306-TC; 97116-GP; 97162-GP; 97163-GP; 99285-25; C9803; G0378; J0897; P9058; U0003; U0005

== ENCOUNTER 2021-04-30 13:54 | Inpatient (IN) | payer OTHER ==
[2021-04-30] MEDS ORDERED: ACETAMINOPHEN 325 MG TABLET (FP) PO ONE (15:59)
[2021-04-30] MEDS ORDERED: LIDOCAINE 5% TOPICAL PATCH TP ONE (16:00)
[2021-04-30] MEDS ORDERED: LIDOCAINE 5% TOPICAL PATCH ONE (16:39)
[2021-04-30] MEDS ORDERED: ACETAMINOPHEN 325 MG TABLET (FP) ONE (16:39)
[2021-04-30] MEDS ORDERED: LIDOCAINE PATCH REMOVAL MC ONE (22:00)
[2021-05-01] MEDS: metFORMIN HCL 500 MG TABLET (FP) PO SCH ×2 (06:38→17:16)
[2021-05-01 08:49] LABS: BASO % 0.3 % (0-2.0); EOS % 0.8 % (0-4.5); HEMATOCRIT 27.7 % (32.4-45.2); HEMOGLOBIN 8.9 GM/dL (10.7-15.3); LYMPH % 33.4 % (8-40); MCH 28.5 pg (25.7-33.7); MEAN CELL VOLUME 88.9 fl (80-96); MEAN PLT VOLUME 8.4 fl (7.5-11.1); MONO % 6.3 % (3.8-10.2); NEUT % 59.2 % (42.8-82.8); PLATELET COUNT 197 10^3/uL (134-434); RBC 3.11 M/mm3 (3.60-5.2); RDW 17.8 % (11.6-15.6); WHITE BLOOD COUNT 5.1 K/mm3 (4.0-10.0)
[2021-05-01 09:17] LABS: CALCIUM 9.8 mg/dL (8.5-10.1)
[2021-05-01 09:18] LABS: ALBUMIN 2.6 g/dl (3.4-5.0); BLOOD UREA NITROGEN 12.2 mg/dL (7-18)
[2021-05-01 09:21] LABS: CREATININE 0.4 mg/dL (0.55-1.3)
[2021-05-01 09:23] LABS: BILIRUBIN,TOTAL 0.2 mg/dL (0.2-1); TOT PROT 7.6 g/dl (6.4-8.2)
[2021-05-01] MEDS: VALSARTAN 160 MG TABLET PO SCH (09:30)
[2021-05-01] MEDS: PANTOPRAZOLE 40 MG TABLET PO SCH (09:30)
[2021-05-01] MEDS: HEPARIN NA (PORCINE) 5,000 UNITS/ML 1ML VIAL SQ SCH ×2 (09:31→21:11)
[2021-05-01] MEDS: POLYETHYLENE GLYCOL (HEALTHYLAX) 3350 17 GM PACKET PO SCH (09:31)
[2021-05-01] MEDS: LIDOCAINE 5% TOPICAL PATCH TP SCH (09:38)
[2021-05-01] MEDS: DOCUSATE SODIUM 100 MG CAPSULE (FP) PO SCH (21:11)
[2021-05-01] MEDS: ROSUVASTATIN CA 10 MG TABLET (FP) PO SCH (21:11)
[2021-05-01] MEDS: LIDOCAINE PATCH REMOVAL MC SCH (21:12)
[2021-05-02] MEDS: metFORMIN HCL 500 MG TABLET (FP) PO SCH ×3 (06:24→16:36)
[2021-05-02 08:35] LABS: ALBUMIN 2.6 g/dl (3.4-5.0); BLOOD UREA NITROGEN 9.8 mg/dL (7-18); CALCIUM 9.5 mg/dL (8.5-10.1)
[2021-05-02 08:39] LABS: CREATININE 0.4 mg/dL (0.55-1.3)
[2021-05-02 08:40] LABS: BILIRUBIN,TOTAL 0.2 mg/dL (0.2-1); TOT PROT 7.9 g/dl (6.4-8.2)
[2021-05-02 08:41] LABS: BASO % 0.4 % (0-2.0); HEMATOCRIT 30.6 % (32.4-45.2); HEMOGLOBIN 9.4 GM/dL (10.7-15.3); LYMPH % 38.7 % (8-40); MCH 28.4 pg (25.7-33.7); MCHC 30.6 g/dl (32.0-36.0); MEAN CELL VOLUME 92.6 fl (80-96); MEAN PLT VOLUME 9.2 fl (7.5-11.1); MONO % 6.3 % (3.8-10.2); NEUT % 53.6 % (42.8-82.8); PLATELET COUNT 181 10^3/uL (134-434); RDW 18.1 % (11.6-15.6); WHITE BLOOD COUNT 4.8 K/mm3 (4.0-10.0)
[2021-05-02] MEDS: POLYETHYLENE GLYCOL (HEALTHYLAX) 3350 17 GM PACKET PO SCH (09:31)
[2021-05-02] MEDS: LIDOCAINE 5% TOPICAL PATCH TP SCH (09:31)
[2021-05-02] MEDS: VALSARTAN 160 MG TABLET PO SCH (09:31)
[2021-05-02] MEDS: PANTOPRAZOLE 40 MG TABLET PO SCH (09:31)
[2021-05-02] MEDS: HEPARIN NA (PORCINE) 5,000 UNITS/ML 1ML VIAL SQ SCH ×2 (09:32→21:50)
[2021-05-02] MEDS: DOCUSATE SODIUM 100 MG CAPSULE (FP) PO SCH (21:50)
[2021-05-02] MEDS: ROSUVASTATIN CA 10 MG TABLET (FP) PO SCH (21:50)
[2021-05-02] MEDS: LIDOCAINE PATCH REMOVAL MC SCH (21:51)
[2021-05-03] MEDS ORDERED: METOPROLOL TARTRATE 5 MG/5 ML VIAL IVPUSH ONE (06:27)
[2021-05-03] MEDS ORDERED: morphine SULFATE 4 MG/ML VIAL IVPUSH ONE (06:29)
[2021-05-03 06:54] LABS: BASO % 0.5 % (0-2.0); EOS % 0.6 % (0-4.5); HEMATOCRIT 27.8 % (32.4-45.2); HEMOGLOBIN 9.1 GM/dL (10.7-15.3); LYMPH % 35.4 % (8-40); MCH 28.6 pg (25.7-33.7); MCHC 32.6 g/dl (32.0-36.0); MEAN CELL VOLUME 87.8 fl (80-96); MEAN PLT VOLUME 9.6 fl (7.5-11.1); MONO % 7.7 % (3.8-10.2); NEUT % 55.8 % (42.8-82.8); PLATELET COUNT 238 10^3/uL (134-434); RBC 3.16 M/mm3 (3.60-5.2); RDW 17.7 % (11.6-15.6)
[2021-05-03] MEDS ORDERED: METOPROLOL TARTRATE 5 MG/5 ML VIAL IVPUSH PRN (06:56)
[2021-05-03 07:18] LABS: CHLORIDE 112 mmol/L (98-107); SODIUM 143 mmol/L (136-145)
[2021-05-03] MEDS: metFORMIN HCL 500 MG TABLET (FP) PO SCH ×2 (07:18→17:14)
[2021-05-03 07:20] LABS: CALCIUM 9.4 mg/dL (8.5-10.1)
[2021-05-03 07:21] LABS: ALBUMIN 2.4 g/dl (3.4-5.0); ANION GAP 6 MMOL/L (8-16); CO2 25 mmol/L (21-32); GLUCOSE,RANDOM 147 mg/dL (74-106); MAGNESIUM 1.6 mg/dL (1.8-2.4)
[2021-05-03 07:24] LABS: CREATININE 0.5 mg/dL (0.55-1.3); PHOSPHOROUS 2.8 mg/dL (2.5-4.9); SGOT/AST 8 U/L (15-37); SGPT/ALT 12 U/L (13-61)
[2021-05-03 07:25] LABS: BILIRUBIN,TOTAL 0.2 mg/dL (0.2-1); TOT PROT 7.7 g/dl (6.4-8.2)
[2021-05-03 07:27] LABS: ALK PHOS 56 U/L (45-117)
[2021-05-03] MEDS: LIDOCAINE 5% TOPICAL PATCH TP SCH (10:59)
[2021-05-03] MEDS: POLYETHYLENE GLYCOL (HEALTHYLAX) 3350 17 GM PACKET PO SCH (10:59)
[2021-05-03] MEDS: PANTOPRAZOLE 40 MG TABLET PO SCH (10:59)
[2021-05-03] MEDS: HEPARIN NA (PORCINE) 5,000 UNITS/ML 1ML VIAL SQ SCH ×2 (10:59→22:00)
[2021-05-03] MEDS: VALSARTAN 160 MG TABLET PO SCH (10:59)
[2021-05-03] MEDS ORDERED: DEXAMETHASONE 4 MG TABLET (FP) PO SCH (15:30)
[2021-05-03] MEDS: DEXTROSE 5%-0.45% SALINE 1,000 ML IV SCH (17:14)
[2021-05-03] MEDS: DEXAMETHASONE 2 MG TABLET PO SCH (17:15)
[2021-05-03] MEDS ORDERED: METOPROLOL TARTRATE 5 MG/5 ML VIAL IVPB PRN (19:50)
[2021-05-03] MEDS: DOCUSATE SODIUM 100 MG CAPSULE (FP) PO SCH (22:00)
[2021-05-03] MEDS: LIDOCAINE PATCH REMOVAL MC SCH (22:00)
[2021-05-03] MEDS: ROSUVASTATIN CA 10 MG TABLET (FP) PO SCH (22:00)
[2021-05-04] MEDS: morphine SULFATE 4 MG/ML VIAL IVPUSH PRN (00:11)
[2021-05-04] MEDS ORDERED: METOPROLOL TARTRATE 25 MG TABLET (FP) PO PRN (03:55)
[2021-05-04] MEDS: DEXTROSE 5%-0.45% SALINE 1,000 ML IV SCH ×2 (05:49→17:20)
[2021-05-04] MEDS: metFORMIN HCL 500 MG TABLET (FP) PO SCH ×2 (06:20→17:20)
[2021-05-04 09:55] LABS: BASO % 0.3 % (0-2.0); EOS % 0.4 % (0-4.5); HEMATOCRIT 25.3 % (32.4-45.2); HEMOGLOBIN 8.2 GM/dL (10.7-15.3); MCH 28.7 pg (25.7-33.7); MCHC 32.3 g/dl (32.0-36.0); MEAN CELL VOLUME 88.8 fl (80-96); MEAN PLT VOLUME 9.9 fl (7.5-11.1); MONO % 5.7 % (3.8-10.2); NEUT % 55.6 % (42.8-82.8); PLATELET COUNT 261 10^3/uL (134-434); RBC 2.84 M/mm3 (3.60-5.2); RDW 17.6 % (11.6-15.6)
[2021-05-04] MEDS ORDERED: DEXAMETHASONE 2 MG TABLET PO SCH (10:00)
[2021-05-04 10:48] LABS: BLOOD UREA NITROGEN 13.4 mg/dL (7-18)
[2021-05-04 10:49] LABS: ALBUMIN 2.4 g/dl (3.4-5.0)
[2021-05-04 10:50] LABS: CALCIUM 9.6 mg/dL (8.5-10.1)
[2021-05-04 10:51] LABS: CREATININE 0.6 mg/dL (0.55-1.3)
[2021-05-04 10:53] LABS: BILIRUBIN,TOTAL 0.2 mg/dL (0.2-1); TOT PROT 7.8 g/dl (6.4-8.2)
[2021-05-04] MEDS ORDERED: PT OWN MED DRAWER 7, Y5N ONE (11:26)
[2021-05-04] MEDS: LIDOCAINE 5% TOPICAL PATCH TP SCH (11:28)
[2021-05-04] MEDS: DEXAMETHASONE 2 MG TABLET PO SCH (11:29)
[2021-05-04] MEDS: PANTOPRAZOLE 40 MG TABLET PO SCH (11:29)
[2021-05-04] MEDS: VALSARTAN 160 MG TABLET PO SCH (11:29)
[2021-05-04] MEDS: METOPROLOL TARTRATE 25 MG TABLET (FP) PO PRN ×2 (11:29→21:03)
[2021-05-04] MEDS: POLYETHYLENE GLYCOL (HEALTHYLAX) 3350 17 GM PACKET PO SCH (11:29)
[2021-05-04] MEDS: HEPARIN NA (PORCINE) 5,000 UNITS/ML 1ML VIAL SQ SCH ×2 (11:29→21:03)
[2021-05-04] MEDS: ROSUVASTATIN CA 10 MG TABLET (FP) PO SCH (21:03)
[2021-05-04] MEDS: DOCUSATE SODIUM 100 MG CAPSULE (FP) PO SCH (21:03)
[2021-05-04] MEDS: LIDOCAINE PATCH REMOVAL MC SCH (21:03)
[2021-05-04] MEDS ORDERED: METOPROLOL TARTRATE 5 MG/5 ML VIAL IVPUSH PRN (22:59)
[2021-05-05] MEDS: metFORMIN HCL 500 MG TABLET (FP) PO SCH ×2 (05:59→17:39)
[2021-05-05 08:13] LABS: URINE APPEARANCE CLEAR; URINE BILIRUBIN NEGATIVE (NEGATIVE); URINE COLOR YELLOW; URINE GLUCOSE (UA) NEGATIVE (NEGATIVE); URINE KETONE NEGATIVE (NEGATIVE); URINE LEUK ESTERASE NEGATIVE (NEGATIVE); URINE NITRITE NEGATIVE (NEGATIVE); URINE PROTEIN NEGATIVE (NEGATIVE); URINE UROBILINOGEN 0.2 mg/dL (0.2-1.0)
[2021-05-05] MEDS ORDERED: PT OWN MED DRAWER 7, Y5N ONE (10:11)
[2021-05-05] MEDS: METOPROLOL TARTRATE 25 MG TABLET (FP) PO PRN (10:35)
[2021-05-05] MEDS: HEPARIN NA (PORCINE) 5,000 UNITS/ML 1ML VIAL SQ SCH ×2 (10:35→21:37)
[2021-05-05] MEDS: DEXAMETHASONE 2 MG TABLET PO SCH (10:36)
[2021-05-05] MEDS: VALSARTAN 160 MG TABLET PO SCH (10:36)
[2021-05-05] MEDS: PANTOPRAZOLE 40 MG TABLET PO SCH (10:36)
[2021-05-05] MEDS: POLYETHYLENE GLYCOL (HEALTHYLAX) 3350 17 GM PACKET PO SCH (10:36)
[2021-05-05] MEDS: LIDOCAINE 5% TOPICAL PATCH TP SCH (10:36)
[2021-05-05] MEDS: DEXTROSE 5%-0.45% SALINE 1,000 ML IV SCH (17:39)
[2021-05-05] MEDS: ROSUVASTATIN CA 10 MG TABLET (FP) PO SCH (21:36)
[2021-05-05] MEDS: DOCUSATE SODIUM 100 MG CAPSULE (FP) PO SCH (21:36)
[2021-05-05] MEDS: LIDOCAINE PATCH REMOVAL MC SCH (22:05)
[2021-05-06] MEDS: metFORMIN HCL 500 MG TABLET (FP) PO SCH ×2 (06:09→16:37)
[2021-05-06] MEDS: LIDOCAINE 5% TOPICAL PATCH TP SCH (09:57)
[2021-05-06] MEDS: HEPARIN NA (PORCINE) 5,000 UNITS/ML 1ML VIAL SQ SCH ×2 (09:58→21:09)
[2021-05-06] MEDS: PANTOPRAZOLE 40 MG TABLET PO SCH (09:58)
[2021-05-06] MEDS: VALSARTAN 160 MG TABLET PO SCH (09:58)
[2021-05-06] MEDS: morphine SULFATE 4 MG/ML VIAL IVPUSH PRN (09:58)
[2021-05-06] MEDS: DEXAMETHASONE 2 MG TABLET PO SCH (09:59)
[2021-05-06] MEDS: POLYETHYLENE GLYCOL (HEALTHYLAX) 3350 17 GM PACKET PO SCH (10:00)
[2021-05-06] MEDS: ROSUVASTATIN CA 10 MG TABLET (FP) PO SCH (21:09)
[2021-05-06] MEDS: LIDOCAINE PATCH REMOVAL MC SCH (21:09)
[2021-05-06] MEDS: DOCUSATE SODIUM 100 MG CAPSULE (FP) PO SCH (21:09)
[2021-05-07] MEDS: metFORMIN HCL 500 MG TABLET (FP) PO SCH ×2 (06:35→16:30)
[2021-05-07] MEDS: PANTOPRAZOLE 40 MG TABLET PO SCH (09:00)
[2021-05-07] MEDS: HEPARIN NA (PORCINE) 5,000 UNITS/ML 1ML VIAL SQ SCH ×2 (09:00→21:06)
[2021-05-07] MEDS: LIDOCAINE 5% TOPICAL PATCH TP SCH (09:00)
[2021-05-07] MEDS: VALSARTAN 160 MG TABLET PO SCH (09:00)
[2021-05-07] MEDS ORDERED: PT OWN MED DRAWER 7, Y5N ONE (09:02)
[2021-05-07] MEDS: DEXAMETHASONE 2 MG TABLET PO SCH (09:03)
[2021-05-07] MEDS: POLYETHYLENE GLYCOL (HEALTHYLAX) 3350 17 GM PACKET PO SCH (09:03)
[2021-05-07] MEDS: ROSUVASTATIN CA 10 MG TABLET (FP) PO SCH (21:06)
[2021-05-07] MEDS: DOCUSATE SODIUM 100 MG CAPSULE (FP) PO SCH (21:06)
[2021-05-07] MEDS: LIDOCAINE PATCH REMOVAL MC SCH (21:07)
[2021-05-07 23:32] VITALS: BMI 24.6
[2021-05-08] MEDS: metFORMIN HCL 500 MG TABLET (FP) PO SCH ×2 (06:12→17:06)
[2021-05-08] MEDS ORDERED: PT OWN MED DRAWER 7, Y5N ONE (09:22)
[2021-05-08] MEDS: PANTOPRAZOLE 40 MG TABLET PO SCH (09:55)
[2021-05-08] MEDS: MULTIVITAMINS THER W-MINERALS COMBO TABLET (FP) PO SCH (09:55)
[2021-05-08] MEDS: ZINC SULFATE 220 MG CAPSULE (FP) PO SCH (09:55)
[2021-05-08] MEDS: VALSARTAN 160 MG TABLET PO SCH (09:55)
[2021-05-08] MEDS: ASCORBIC ACID 250 MG TABLET (FP) PO SCH (09:56)
[2021-05-08] MEDS: POLYETHYLENE GLYCOL (HEALTHYLAX) 3350 17 GM PACKET PO SCH (09:56)
[2021-05-08] MEDS: DEXAMETHASONE 2 MG TABLET PO SCH (09:56)
[2021-05-08] MEDS: LIDOCAINE 5% TOPICAL PATCH TP SCH (09:57)
[2021-05-08] MEDS: HEPARIN NA (PORCINE) 5,000 UNITS/ML 1ML VIAL SQ SCH ×2 (09:57→21:13)
[2021-05-08 10:02] LABS: BASO % 0.3 % (0-2.0); HEMATOCRIT 26.6 % (32.4-45.2); HEMOGLOBIN 8.6 GM/dL (10.7-15.3); LYMPH % 37.9 % (8-40); MCH 28.7 pg (25.7-33.7); MCHC 32.2 g/dl (32.0-36.0); MEAN PLT VOLUME 9.2 fl (7.5-11.1); MONO % 8.7 % (3.8-10.2); NEUT % 52.1 % (42.8-82.8); PLATELET COUNT 248 10^3/uL (134-434); RBC 2.99 M/mm3 (3.60-5.2); RDW 17.7 % (11.6-15.6); WHITE BLOOD COUNT 4.4 K/mm3 (4.0-10.0)
[2021-05-08 10:28] LABS: ALBUMIN 2.7 g/dl (3.4-5.0); BLOOD UREA NITROGEN 9.6 mg/dL (7-18); CALCIUM 9.7 mg/dL (8.5-10.1)
[2021-05-08 10:32] LABS: CREATININE 0.5 mg/dL (0.55-1.3)
[2021-05-08 10:33] LABS: BILIRUBIN,TOTAL 0.2 mg/dL (0.2-1); TOT PROT 7.9 g/dl (6.4-8.2)
[2021-05-08] MEDS: DOCUSATE SODIUM 100 MG CAPSULE (FP) PO SCH (21:12)
[2021-05-08] MEDS: ROSUVASTATIN CA 10 MG TABLET (FP) PO SCH (21:13)
[2021-05-08] MEDS: LIDOCAINE PATCH REMOVAL MC SCH (21:13)
[2021-05-09] MEDS: metFORMIN HCL 500 MG TABLET (FP) PO SCH ×2 (06:00→17:30)
[2021-05-09 08:30] LABS: BASO % 0.4 % (0-2.0); EOS % 0.9 % (0-4.5); HEMATOCRIT 24.8 % (32.4-45.2); HEMOGLOBIN 7.9 GM/dL (10.7-15.3); LYMPH % 36.4 % (8-40); MCH 28.4 pg (25.7-33.7); MEAN CELL VOLUME 88.8 fl (80-96); MEAN PLT VOLUME 8.3 fl (7.5-11.1); MONO % 10.2 % (3.8-10.2); NEUT % 52.1 % (42.8-82.8); PLATELET COUNT 233 10^3/uL (134-434); RBC 2.79 M/mm3 (3.60-5.2); RDW 17.7 % (11.6-15.6); WHITE BLOOD COUNT 4.8 K/mm3 (4.0-10.0)
[2021-05-09 09:21] LABS: ALBUMIN 2.6 g/dl (3.4-5.0); BLOOD UREA NITROGEN 12.9 mg/dL (7-18); CALCIUM 9.8 mg/dL (8.5-10.1)
[2021-05-09 09:25] LABS: CREATININE 0.5 mg/dL (0.55-1.3)
[2021-05-09 09:27] LABS: BILIRUBIN,TOTAL 0.2 mg/dL (0.2-1); TOT PROT 7.6 g/dl (6.4-8.2)
[2021-05-09] MEDS ORDERED: PT OWN MED DRAWER 7, Y5N ONE (10:31)
[2021-05-09] MEDS: POLYETHYLENE GLYCOL (HEALTHYLAX) 3350 17 GM PACKET PO SCH (10:33)
[2021-05-09] MEDS: DEXAMETHASONE 2 MG TABLET PO SCH (10:33)
[2021-05-09] MEDS: ASCORBIC ACID 250 MG TABLET (FP) PO SCH (10:33)
[2021-05-09] MEDS: ZINC SULFATE 220 MG CAPSULE (FP) PO SCH (10:33)
[2021-05-09] MEDS: LIDOCAINE 5% TOPICAL PATCH TP SCH (10:33)
[2021-05-09] MEDS: VALSARTAN 160 MG TABLET PO SCH (10:33)
[2021-05-09] MEDS: MULTIVITAMINS THER W-MINERALS COMBO TABLET (FP) PO SCH (10:33)
[2021-05-09] MEDS: PANTOPRAZOLE 40 MG TABLET PO SCH (10:33)
[2021-05-09] MEDS: HEPARIN NA (PORCINE) 5,000 UNITS/ML 1ML VIAL SQ SCH ×2 (10:34→21:50)
[2021-05-09] MEDS: LIDOCAINE PATCH REMOVAL MC SCH (21:50)
[2021-05-09] MEDS: DOCUSATE SODIUM 100 MG CAPSULE (FP) PO SCH (21:50)
[2021-05-09] MEDS: ROSUVASTATIN CA 10 MG TABLET (FP) PO SCH (21:50)
[2021-05-10] MEDS: metFORMIN HCL 500 MG TABLET (FP) PO SCH ×2 (06:10→16:36)
[2021-05-10] MEDS ORDERED: PT OWN MED DRAWER 7, Y5N ONE (09:10)
[2021-05-10] MEDS: MULTIVITAMINS THER W-MINERALS COMBO TABLET (FP) PO SCH (09:24)
[2021-05-10] MEDS: PANTOPRAZOLE 40 MG TABLET PO SCH (09:24)
[2021-05-10] MEDS: ZINC SULFATE 220 MG CAPSULE (FP) PO SCH (09:24)
[2021-05-10] MEDS: HEPARIN NA (PORCINE) 5,000 UNITS/ML 1ML VIAL SQ SCH ×2 (09:24→21:05)
[2021-05-10] MEDS: POLYETHYLENE GLYCOL (HEALTHYLAX) 3350 17 GM PACKET PO SCH (09:24)
[2021-05-10] MEDS: VALSARTAN 160 MG TABLET PO SCH (09:24)
[2021-05-10] MEDS: ASCORBIC ACID 250 MG TABLET (FP) PO SCH (09:24)
[2021-05-10] MEDS: LIDOCAINE 5% TOPICAL PATCH TP SCH (09:24)
[2021-05-10] MEDS: DEXAMETHASONE 2 MG TABLET PO SCH (09:24)
[2021-05-10] MEDS: LIDOCAINE PATCH REMOVAL MC SCH (21:05)
[2021-05-10] MEDS: ROSUVASTATIN CA 10 MG TABLET (FP) PO SCH (21:05)
[2021-05-10] MEDS: DOCUSATE SODIUM 100 MG CAPSULE (FP) PO SCH (21:05)
[2021-05-11] MEDS: metFORMIN HCL 500 MG TABLET (FP) PO SCH ×2 (06:18→16:52)
[2021-05-11] MEDS ORDERED: PT OWN MED DRAWER 7, Y5N ONE (09:38)
[2021-05-11] MEDS: LIDOCAINE 5% TOPICAL PATCH TP SCH (09:40)
[2021-05-11] MEDS: PANTOPRAZOLE 40 MG TABLET PO SCH (09:40)
[2021-05-11] MEDS: VALSARTAN 160 MG TABLET PO SCH (09:40)
[2021-05-11] MEDS: MULTIVITAMINS THER W-MINERALS COMBO TABLET (FP) PO SCH (09:40)
[2021-05-11] MEDS: HEPARIN NA (PORCINE) 5,000 UNITS/ML 1ML VIAL SQ SCH ×2 (09:40→21:09)
[2021-05-11] MEDS: DEXAMETHASONE 2 MG TABLET PO SCH (09:40)
[2021-05-11] MEDS: ZINC SULFATE 220 MG CAPSULE (FP) PO SCH (09:40)
[2021-05-11] MEDS: ASCORBIC ACID 250 MG TABLET (FP) PO SCH (09:40)
[2021-05-11] MEDS: POLYETHYLENE GLYCOL (HEALTHYLAX) 3350 17 GM PACKET PO SCH (09:49)
[2021-05-11] MEDS: DOCUSATE SODIUM 100 MG CAPSULE (FP) PO SCH (21:09)
[2021-05-11] MEDS: ROSUVASTATIN CA 10 MG TABLET (FP) PO SCH (21:10)
[2021-05-11] MEDS: LIDOCAINE PATCH REMOVAL MC SCH (21:10)
[2021-05-12] MEDS: metFORMIN HCL 500 MG TABLET (FP) PO SCH ×2 (06:19→16:01)
[2021-05-12 08:48] LABS: BASO % 0.4 % (0-2.0); EOS % 1.2 % (0-4.5); HEMATOCRIT 26.7 % (32.4-45.2); HEMOGLOBIN 8.5 GM/dL (10.7-15.3); MCHC 31.7 g/dl (32.0-36.0); MEAN CELL VOLUME 88.4 fl (80-96); MONO % 9.8 % (3.8-10.2); NEUT % 55.6 % (42.8-82.8); PLATELET COUNT 272 10^3/uL (134-434); RBC 3.02 M/mm3 (3.60-5.2); RDW 18.4 % (11.6-15.6); WHITE BLOOD COUNT 5.3 K/mm3 (4.0-10.0)
[2021-05-12] MEDS: ZINC SULFATE 220 MG CAPSULE (FP) PO SCH (09:20)
[2021-05-12] MEDS: LIDOCAINE 5% TOPICAL PATCH TP SCH (09:20)
[2021-05-12] MEDS: PANTOPRAZOLE 40 MG TABLET PO SCH (09:20)
[2021-05-12] MEDS: MULTIVITAMINS THER W-MINERALS COMBO TABLET (FP) PO SCH (09:20)
[2021-05-12] MEDS ORDERED: PT OWN MED DRAWER 7, Y5N ONE (09:20)
[2021-05-12] MEDS: VALSARTAN 160 MG TABLET PO SCH (09:20)
[2021-05-12] MEDS: DEXAMETHASONE 2 MG TABLET PO SCH (09:21)
[2021-05-12] MEDS: ASCORBIC ACID 250 MG TABLET (FP) PO SCH (09:21)
[2021-05-12] MEDS: POLYETHYLENE GLYCOL (HEALTHYLAX) 3350 17 GM PACKET PO SCH (09:21)
[2021-05-12 11:52] LABS: ALBUMIN 2.7 g/dl (3.4-5.0); BILIRUBIN,TOTAL 0.1 mg/dL (0.2-1); BLOOD UREA NITROGEN 14.6 mg/dL (7-18); CALCIUM 10.2 mg/dL (8.5-10.1); CREATININE 0.5 mg/dL (0.55-1.3); TOT PROT 7.9 g/dl (6.4-8.2)
[2021-05-12] MEDS: HEPARIN NA (PORCINE) 5,000 UNITS/ML 1ML VIAL SQ SCH ×2 (12:23→21:28)
[2021-05-12] MEDS: DOCUSATE SODIUM 100 MG CAPSULE (FP) PO SCH (21:28)
[2021-05-12] MEDS: LIDOCAINE PATCH REMOVAL MC SCH (21:28)
[2021-05-12] MEDS: ROSUVASTATIN CA 10 MG TABLET (FP) PO SCH (21:28)
[2021-05-13] MEDS: metFORMIN HCL 500 MG TABLET (FP) PO SCH ×2 (06:25→16:49)
[2021-05-13] MEDS ORDERED: PT OWN MED DRAWER 7, Y5N ONE (08:48)
[2021-05-13] MEDS: ZINC SULFATE 220 MG CAPSULE (FP) PO SCH (09:33)
[2021-05-13] MEDS: LIDOCAINE 5% TOPICAL PATCH TP SCH (09:33)
[2021-05-13] MEDS: VALSARTAN 160 MG TABLET PO SCH (09:33)
[2021-05-13] MEDS: DEXAMETHASONE 2 MG TABLET PO SCH (09:33)
[2021-05-13] MEDS: HEPARIN NA (PORCINE) 5,000 UNITS/ML 1ML VIAL SQ SCH ×2 (09:33→21:16)
[2021-05-13] MEDS: PANTOPRAZOLE 40 MG TABLET PO SCH (09:34)
[2021-05-13] MEDS: POLYETHYLENE GLYCOL (HEALTHYLAX) 3350 17 GM PACKET PO SCH (09:34)
[2021-05-13] MEDS: MULTIVITAMINS THER W-MINERALS COMBO TABLET (FP) PO SCH (09:34)
[2021-05-13] MEDS: ASCORBIC ACID 250 MG TABLET (FP) PO SCH (09:35)
[2021-05-13] MEDS: LIDOCAINE PATCH REMOVAL MC SCH (21:16)
[2021-05-13] MEDS: ROSUVASTATIN CA 10 MG TABLET (FP) PO SCH (21:16)
[2021-05-13] MEDS: DOCUSATE SODIUM 100 MG CAPSULE (FP) PO SCH (21:16)
[2021-05-14] MEDS: metFORMIN HCL 500 MG TABLET (FP) PO SCH ×2 (06:00→17:33)
[2021-05-14] MEDS: AMINO ACIDS/PROTEIN HYDROLYS 30 ML LIQUID.PKT PO SCH (09:00)
[2021-05-14] MEDS ORDERED: PT OWN MED DRAWER 7, Y5N ONE (10:39)
[2021-05-14] MEDS: LIDOCAINE 5% TOPICAL PATCH TP SCH (10:40)
[2021-05-14] MEDS: HEPARIN NA (PORCINE) 5,000 UNITS/ML 1ML VIAL SQ SCH ×2 (10:41→21:23)
[2021-05-14] MEDS: VALSARTAN 160 MG TABLET PO SCH (10:49)
[2021-05-14] MEDS: MULTIVITAMINS THER W-MINERALS COMBO TABLET (FP) PO SCH (10:49)
[2021-05-14] MEDS: DEXAMETHASONE 2 MG TABLET PO SCH (10:49)
[2021-05-14] MEDS: POLYETHYLENE GLYCOL (HEALTHYLAX) 3350 17 GM PACKET PO SCH (10:49)
[2021-05-14] MEDS: ZINC SULFATE 220 MG CAPSULE (FP) PO SCH (10:49)
[2021-05-14] MEDS: PANTOPRAZOLE 40 MG TABLET PO SCH (10:49)
[2021-05-14] MEDS: ASCORBIC ACID 250 MG TABLET (FP) PO SCH (10:50)
[2021-05-14] MEDS: DOCUSATE SODIUM 100 MG CAPSULE (FP) PO SCH (21:23)
[2021-05-14] MEDS: ROSUVASTATIN CA 10 MG TABLET (FP) PO SCH (21:23)
[2021-05-14] MEDS: LIDOCAINE PATCH REMOVAL MC SCH (21:59)
[2021-05-15] MEDS: metFORMIN HCL 500 MG TABLET (FP) PO SCH ×2 (06:13→16:52)
[2021-05-15] MEDS: HEPARIN NA (PORCINE) 5,000 UNITS/ML 1ML VIAL SQ SCH ×2 (09:06→21:10)
[2021-05-15] MEDS: ASCORBIC ACID 250 MG TABLET (FP) PO SCH (09:06)
[2021-05-15] MEDS: LIDOCAINE 5% TOPICAL PATCH TP SCH (09:06)
[2021-05-15] MEDS: PANTOPRAZOLE 40 MG TABLET PO SCH (09:06)
[2021-05-15] MEDS: MULTIVITAMINS THER W-MINERALS COMBO TABLET (FP) PO SCH (09:06)
[2021-05-15] MEDS: POLYETHYLENE GLYCOL (HEALTHYLAX) 3350 17 GM PACKET PO SCH (09:06)
[2021-05-15] MEDS: ZINC SULFATE 220 MG CAPSULE (FP) PO SCH (09:06)
[2021-05-15] MEDS: VALSARTAN 160 MG TABLET PO SCH (09:06)
[2021-05-15] MEDS: AMINO ACIDS/PROTEIN HYDROLYS 30 ML LIQUID.PKT PO SCH (09:06)
[2021-05-15] MEDS: DEXAMETHASONE 2 MG TABLET PO SCH (09:28)
[2021-05-15] MEDS: DOCUSATE SODIUM 100 MG CAPSULE (FP) PO SCH (21:09)
[2021-05-15] MEDS: ROSUVASTATIN CA 10 MG TABLET (FP) PO SCH (21:09)
[2021-05-15] MEDS: LIDOCAINE PATCH REMOVAL MC SCH (21:16)
[2021-05-16] MEDS: metFORMIN HCL 500 MG TABLET (FP) PO SCH ×3 (06:02→17:19)
[2021-05-16] MEDS: LIDOCAINE 5% TOPICAL PATCH TP SCH (09:07)
[2021-05-16] MEDS: HEPARIN NA (PORCINE) 5,000 UNITS/ML 1ML VIAL SQ SCH ×2 (09:07→21:57)
[2021-05-16] MEDS: POLYETHYLENE GLYCOL (HEALTHYLAX) 3350 17 GM PACKET PO SCH (09:07)
[2021-05-16] MEDS: AMINO ACIDS/PROTEIN HYDROLYS 30 ML LIQUID.PKT PO SCH (09:07)
[2021-05-16] MEDS: DEXAMETHASONE 2 MG TABLET PO SCH (09:08)
[2021-05-16] MEDS: VALSARTAN 160 MG TABLET PO SCH (09:08)
[2021-05-16] MEDS: ZINC SULFATE 220 MG CAPSULE (FP) PO SCH (09:08)
[2021-05-16] MEDS: PANTOPRAZOLE 40 MG TABLET PO SCH (09:08)
[2021-05-16] MEDS: ASCORBIC ACID 250 MG TABLET (FP) PO SCH (09:08)
[2021-05-16] MEDS: MULTIVITAMINS THER W-MINERALS COMBO TABLET (FP) PO SCH (09:08)
[2021-05-16] MEDS: DOCUSATE SODIUM 100 MG CAPSULE (FP) PO SCH (21:56)
[2021-05-16] MEDS: ROSUVASTATIN CA 10 MG TABLET (FP) PO SCH (21:57)
[2021-05-16] MEDS: LIDOCAINE PATCH REMOVAL MC SCH (21:57)
[2021-05-17] MEDS: metFORMIN HCL 500 MG TABLET (FP) PO SCH ×2 (06:06→17:09)
[2021-05-17] MEDS ORDERED: PT OWN MED DRAWER 7, Y5N ONE (09:49)
[2021-05-17] MEDS: AMINO ACIDS/PROTEIN HYDROLYS 30 ML LIQUID.PKT PO SCH (09:51)
[2021-05-17] MEDS: PANTOPRAZOLE 40 MG TABLET PO SCH (09:51)
[2021-05-17] MEDS: ZINC SULFATE 220 MG CAPSULE (FP) PO SCH (09:51)
[2021-05-17] MEDS: LIDOCAINE 5% TOPICAL PATCH TP SCH (09:51)
[2021-05-17] MEDS: HEPARIN NA (PORCINE) 5,000 UNITS/ML 1ML VIAL SQ SCH ×2 (09:51→21:20)
[2021-05-17] MEDS: POLYETHYLENE GLYCOL (HEALTHYLAX) 3350 17 GM PACKET PO SCH (09:51)
[2021-05-17] MEDS: MULTIVITAMINS THER W-MINERALS COMBO TABLET (FP) PO SCH (09:51)
[2021-05-17] MEDS: VALSARTAN 160 MG TABLET PO SCH (09:52)
[2021-05-17] MEDS: DEXAMETHASONE 2 MG TABLET PO SCH (09:52)
[2021-05-17] MEDS: ASCORBIC ACID 250 MG TABLET (FP) PO SCH (09:52)
[2021-05-17] MEDS: DOCUSATE SODIUM 100 MG CAPSULE (FP) PO SCH (21:19)
[2021-05-17] MEDS: ROSUVASTATIN CA 10 MG TABLET (FP) PO SCH (21:20)
[2021-05-17] MEDS: LIDOCAINE PATCH REMOVAL MC SCH (21:20)
[2021-05-18] MEDS: metFORMIN HCL 500 MG TABLET (FP) PO SCH ×2 (06:32→16:01)
[2021-05-18] MEDS: AMINO ACIDS/PROTEIN HYDROLYS 30 ML LIQUID.PKT PO SCH (08:20)
[2021-05-18] MEDS ORDERED: PT OWN MED DRAWER 7, Y5N ONE ×3 (09:08→21:37)
[2021-05-18] MEDS: MULTIVITAMINS THER W-MINERALS COMBO TABLET (FP) PO SCH (09:56)
[2021-05-18] MEDS: ZINC SULFATE 220 MG CAPSULE (FP) PO SCH (09:56)
[2021-05-18] MEDS: PANTOPRAZOLE 40 MG TABLET PO SCH (09:56)
[2021-05-18] MEDS: VALSARTAN 160 MG TABLET PO SCH (09:56)
[2021-05-18] MEDS: HEPARIN NA (PORCINE) 5,000 UNITS/ML 1ML VIAL SQ SCH ×2 (09:56→21:40)
[2021-05-18] MEDS: POLYETHYLENE GLYCOL (HEALTHYLAX) 3350 17 GM PACKET PO SCH (09:57)
[2021-05-18] MEDS: LIDOCAINE 5% TOPICAL PATCH TP SCH (10:11)
[2021-05-18] MEDS: ASCORBIC ACID 250 MG TABLET (FP) PO SCH (10:28)
[2021-05-18] MEDS: DEXAMETHASONE 2 MG TABLET PO SCH (10:28)
[2021-05-18] MEDS: ROSUVASTATIN CA 10 MG TABLET (FP) PO SCH (21:40)
[2021-05-18] MEDS: DOCUSATE SODIUM 100 MG CAPSULE (FP) PO SCH (21:40)
[2021-05-18] MEDS: LIDOCAINE PATCH REMOVAL MC SCH (21:41)
[2021-05-19] MEDS: metFORMIN HCL 500 MG TABLET (FP) PO SCH ×2 (06:11→16:45)
[2021-05-19] MEDS ORDERED: PT OWN MED DRAWER 7, Y5N ONE (10:23)
[2021-05-19] MEDS: POLYETHYLENE GLYCOL (HEALTHYLAX) 3350 17 GM PACKET PO SCH (10:30)
[2021-05-19] MEDS: HEPARIN NA (PORCINE) 5,000 UNITS/ML 1ML VIAL SQ SCH (10:30)
[2021-05-19] MEDS: ZINC SULFATE 220 MG CAPSULE (FP) PO SCH (10:30)
[2021-05-19] MEDS: MULTIVITAMINS THER W-MINERALS COMBO TABLET (FP) PO SCH (10:30)
[2021-05-19] MEDS: VALSARTAN 160 MG TABLET PO SCH (10:30)
[2021-05-19] MEDS: PANTOPRAZOLE 40 MG TABLET PO SCH (10:30)
[2021-05-19] MEDS: AMINO ACIDS/PROTEIN HYDROLYS 30 ML LIQUID.PKT PO SCH (10:30)
[2021-05-19] MEDS: DEXAMETHASONE 2 MG TABLET PO SCH (10:31)
[2021-05-19] MEDS: ASCORBIC ACID 250 MG TABLET (FP) PO SCH (10:31)
[2021-05-19] MEDS: LIDOCAINE 5% TOPICAL PATCH TP SCH (10:31)
[2021-05-19] MEDS: ROSUVASTATIN CA 10 MG TABLET (FP) PO SCH (21:20)
[2021-05-19] MEDS: DOCUSATE SODIUM 100 MG CAPSULE (FP) PO SCH (21:20)
[2021-05-19] MEDS: LIDOCAINE PATCH REMOVAL MC SCH (21:21)
[2021-05-20] MEDS: metFORMIN HCL 500 MG TABLET (FP) PO SCH ×2 (06:02→18:01)
[2021-05-20 09:14] LABS: BASO % 0.5 % (0-2.0); EOS % 0.9 % (0-4.5); HEMATOCRIT 25.9 % (32.4-45.2); HEMOGLOBIN 8.2 GM/dL (10.7-15.3); LYMPH % 33.7 % (8-40); MCH 28.2 pg (25.7-33.7); MCHC 31.8 g/dl (32.0-36.0); MEAN CELL VOLUME 88.7 fl (80-96); MEAN PLT VOLUME 10.1 fl (7.5-11.1); MONO % 10.9 % (3.8-10.2); PLATELET COUNT 242 10^3/uL (134-434); RBC 2.92 M/mm3 (3.60-5.2); RDW 18.2 % (11.6-15.6)
[2021-05-20] MEDS ORDERED: PT OWN MED DRAWER 7, Y5N ONE (09:29)
[2021-05-20] MEDS: ZINC SULFATE 220 MG CAPSULE (FP) PO SCH (09:50)
[2021-05-20] MEDS: VALSARTAN 160 MG TABLET PO SCH (09:50)
[2021-05-20] MEDS: PANTOPRAZOLE 40 MG TABLET PO SCH (09:50)
[2021-05-20] MEDS: AMINO ACIDS/PROTEIN HYDROLYS 30 ML LIQUID.PKT PO SCH (09:50)
[2021-05-20] MEDS: POLYETHYLENE GLYCOL (HEALTHYLAX) 3350 17 GM PACKET PO SCH (09:50)
[2021-05-20] MEDS: DEXAMETHASONE 2 MG TABLET PO SCH (09:51)
[2021-05-20] MEDS: ASCORBIC ACID 250 MG TABLET (FP) PO SCH (09:51)
[2021-05-20] MEDS: MULTIVITAMINS THER W-MINERALS COMBO TABLET (FP) PO SCH (09:51)
[2021-05-20] MEDS: LIDOCAINE 5% TOPICAL PATCH TP SCH (09:52)
[2021-05-20 10:47] LABS: ALBUMIN 2.6 g/dl (3.4-5.0); CALCIUM 10.3 mg/dL (8.5-10.1)
[2021-05-20 10:48] LABS: BLOOD UREA NITROGEN 21.7 mg/dL (7-18)
[2021-05-20 10:50] LABS: CREATININE 0.6 mg/dL (0.55-1.3)
[2021-05-20 10:52] LABS: BILIRUBIN,TOTAL 0.2 mg/dL (0.2-1); TOT PROT 8.1 g/dl (6.4-8.2)
[2021-05-20] MEDS: LIDOCAINE PATCH REMOVAL MC SCH (22:31)
[2021-05-20] MEDS: DOCUSATE SODIUM 100 MG CAPSULE (FP) PO SCH (22:31)
[2021-05-20] MEDS: ROSUVASTATIN CA 10 MG TABLET (FP) PO SCH (22:31)
[2021-05-21 05:16] VITALS: TEMP 97.3
[2021-05-21] MEDS: metFORMIN HCL 500 MG TABLET (FP) PO SCH (06:01)
[2021-05-21] MEDS: AMINO ACIDS/PROTEIN HYDROLYS 30 ML LIQUID.PKT PO SCH (08:40)
[2021-05-21] MEDS ORDERED: PT OWN MED DRAWER 7, Y5N ONE (10:42)
[2021-05-21] MEDS: DEXAMETHASONE 2 MG TABLET PO SCH (10:44)
[2021-05-21] MEDS: PANTOPRAZOLE 40 MG TABLET PO SCH (10:44)
[2021-05-21] MEDS: MULTIVITAMINS THER W-MINERALS COMBO TABLET (FP) PO SCH (10:44)
[2021-05-21] MEDS: ZINC SULFATE 220 MG CAPSULE (FP) PO SCH (10:44)
[2021-05-21] MEDS: ASCORBIC ACID 250 MG TABLET (FP) PO SCH (10:44)
[2021-05-21] MEDS: VALSARTAN 160 MG TABLET PO SCH (10:44)
[2021-05-21] MEDS: POLYETHYLENE GLYCOL (HEALTHYLAX) 3350 17 GM PACKET PO SCH (10:44)
[2021-05-21] MEDS: LIDOCAINE 5% TOPICAL PATCH TP SCH (10:44)
[2021-05-21 13:14] VITALS: BP 140/78; PULSE 78
== END 2021-05-21 14:19 | DRG 841 ==
LOC: JER 13:54 → JERBED 16:31 → J6S 22:42
PROVIDERS: ADMIT Internal Medicine; ATTEND Internal Medicine
DX: C90.00 Multiple myeloma not having achieved remission (principal); M48.56XA Collapsed vertebra, not elsewhere classified, lumbar region, initial encounter for fracture; N39.0 Urinary tract infection, site not specified; I50.32 Chronic diastolic (congestive) heart failure; E78.5 Hyperlipidemia, unspecified; D63.0 Anemia in neoplastic disease; F03.90 Unspecified dementia, unspecified severity, without behavioral disturbance, psychotic disturbance, mood disturbance, and anxiety; I48.91 Unspecified atrial fibrillation; E11.42 Type 2 diabetes mellitus with diabetic polyneuropathy; Z79.4 Long term (current) use of insulin; D64.9 Anemia, unspecified; I11.0 Hypertensive heart disease with heart failure; I71.4 Abdominal aortic aneurysm, without rupture
CPT/HCPCS: 36415; 72131-TC; 72192-TC; 80053; 81003; 82550; 82962; 83735; 84100; 84484; 85025; 87040; 87086; 87186; 93005; 93010; 93306-TC; 97162-GP; 99285-25; C9803; J1644; U0003; U0005

== ENCOUNTER 2021-05-31 11:33 | Emergency (ER) | payer OTHER ==
[2021-05-31 12:00] VITALS: BMI 25.8
[2021-05-31] MEDS ORDERED: CASIRIVIMAB/IMDEVIMAB 10 ML in SODIUM CHLORIDE 100 ML IVPB ONE (12:45)
[2021-06-01 07:47] VITALS: TEMP 97.3
[2021-06-01 10:16] VITALS: BP 135/69; PULSE 67
== END 2021-06-01 09:30 ==
LOC: JER 11:33
PROC: 3E033GC Introduction of Other Therapeutic Substance into Peripheral Vein, Percutaneous Approach (ICD-10-PCS; principal; 2021-05-31)
DX: U07.1 COVID-19 (principal)
CPT/HCPCS: 71045-TC-FY; 93005; 93010; 99284-25; Q0240